=== PATIENT | female | born 1945 | race Asian ===

== ENCOUNTER → 2016-07-13 | Outpatient (CLI) | payer OTHER ==
[~2016-07-13] VITALS: Ht 157.5 cm; Wt 67.4 kg
[~2016-07-13] MED LIST: ALPRAZOLAM 0.50.5 M1 PO; AMITIZA 24 MCG24 MC1 PO; AMITIZA8 MCG PO; BACITRACIN 500U30 G1 TP; BISACODYL SUPP10 MG RE; CARBAMAZEPINE100 MG PO; CITRATE OF MAG300 ML PO; DOLOPHINE HCL10 MG PO; FENTANYL PA25 MCG/HR TRANSDERM; FENTANYL PA50 MCG/HR TRANSDERM; FOSAMAX 70 MG T70 MG PO; GABAPENTIN; HYDROCODON-ACE1 EAC1 PO; HYDROCODON-ACE1 EAC5 PO; HYDROCODONE-AP1 EA12 PO; HYDROCODONE-AP1 EAC6 PO; IMIPRAMINE HCL10 M2 PO; IMIPRAMINE HCL25 MG PO; KLOR-CON 1010 MEQ PO; LASIX 20 MG TAB20 MG PO; LEVAQUIN 500 M500 M1 PO; LIDODERM 5%1 PATC1 TRANSDERM; LYRICA 50 MG50 MG PO; LYRICA 75 MG CA75 MG PO; MELOXICAM7.5 MG PO; METHADONE HCL 110 M1 PO; METHADONE HCL 110 MG PO; MIRALAX17 GM PO; MIRALAX255 GM PO; NEURONTIN 300300 M1 PO; NORFLEX100 MG PO; NORTRIPTYLINE H25 M3 PO; NORTRIPTYLINE H50 M3 GT; NORTRIPTYLINE H75 M1 PO; OXCARBAZEPINE150 MG PO; OXYCODONE HCL10 M1 PO; OXYCODONE HCL15 MG PO; OXYCODONE HCL5 M1 PO; OXYCONTIN40 MG PO; PAMELOR25 MG PO; PROZAC10 M1 PO; PROZAC20 MG PO; ROXICODONE15 M1 PO; SENOKOT-S1 TA1 PO; VALIUM5 MG PO; XANAX 0.25 MG0.25 MG PO
--- NOTE | ~2016-07-13 | HPC ---
[facility] [address] [place] [address] PAIN MANAGEMENT CONSULTATION Name: FLACO HARRISON Room #: REG [facility] M.Fani.#: [id number] Admission: 07/13/16 Attend Phys: May Matt MD Discharge: Date of : 45 Report #: [id number] THIS REPORT FOR: //name// CC: KOKO Matt DATE OF SERVICE: 07/13/2016 CHIEF COMPLAINT: Here for medications for trigeminal neuralgia. HISTORY OF PRESENT ILLNESS: The patient is a 70-year-old female who has been followed in the pain clinic by Dr. Dejon Pierson. She suffers from chronic trigeminal neuralgia and anesthesia dolorosa. She continues to have pain and discomfort, which is quite problematic. At this juncture, her current regimen includes use of opioid medications. She indicates that the pain medications continue to be helpful. Her is present and states that they are helpful. She had an mobile manager present with whom we interacted with her. She states that things are going reasonably well. She feels that her medications are working reasonably well, enable her to engage in activities she would not be able to without their use. She does not feel they are causing any changes in her sensorium or difficulty in sleeping. She feels that overall these are helpful in increasing her ability to engage in daily activities. PHYSICAL EXAMINATION: GENERAL: The patient is alert. She appears to be reasonably comfortable during the interview. Blood pressure 174/83, pulse 60, respiratory rate 18, room air saturation 97%. Height 5 feet 2 inches, weight is 67 kilograms. BMI is 27. She has not fallen in the last 3 months. She does have a history of clinical depression. IMPRESSION: 1. Trigeminal neuralgia, mandibular branch 2. Anesthesia dolorosa, which has improved since her initial presentation. 3. Chronic depression. 4. Continued management of high risk medication including methadone 60 mg daily and . RECOMMENDATIONS: We explained to the patient that we can provide her 1 month of medications in the absence of Dr. Pierson. She will follow up in the near future with Dr. Pierson to be evaluated for continued treatment. A script for the patient has been given to her. She looks at it with her mobile manager and states that the dosaging amounts are correct. Her corroborates that. She will follow up in the near future. We would like to thank you for letting us participate in her care. We hope she continues to improve. [address] [address] PAIN MANAGEMENT CONSULTATION Name: FLACO HARRISON Room #: REG CLI [facility]#: [id number] Admission: 07/13/16 Attend Phys: May Matt MD Discharge: Date of : 45 Report #: [id number] We would like to thank you for letting us participate in her care. We hope she continues to improve. By: 1329 36 May Matt MD /rola
[2016-07-13 09:20] VITALS: BP 174/83
== END ==
LOC: PAIN 06:48
DX: G50.0 Trigeminal neuralgia (principal); F32.9 Major depressive disorder, single episode, unspecified

== ENCOUNTER → 2016-08-08 | Outpatient (CLI) | payer OTHER ==
[~2016-08-08] VITALS: Ht 157.5 cm; Wt 67.8 kg
--- NOTE | ~2016-08-08 | HPC ---
[facility] [place] [address] PAIN MANAGEMENT CONSULTATION Name: FLACO HARRISON Room #: REG CLGabby M.Fani.#: [id number] Admission: 08/08/16 Attend Phys: Dejon Pierson MD Discharge: Date of : 45 Report #: [id number] THIS REPORT FOR: //name// CC: Solo Pierson DATE OF SERVICE: 08/08/2016 DATE OF REGISTRATION: 08/08/2016. REASON FOR VISIT: Followup visit for management of trigeminal neuralgia and anesthesia dolorosa. SUBJECTIVE: The patient is here today with her . She has successfully made her trip to [place] and back. She is very grateful for the medication that she was able to take with her on her plane with our plans that we had established in April. She saw my partner, Dr. Bernard Matt at last visit. He provided her with 1 month of medication. She is here today for renewal of her medication. She reports that she is doing well. There are no new medical issues at hand. She is on time for medication. There have been no lost prescriptions. Pain relief is substantial. She does score her pain quite high, but her functional level is much improved. Pain is in the right lower jaw with allodynia; worsened by stress, cold weather and chewing. CURRENT MEDICATIONS: Methadone 10 mg 2 tablets t.i.d. for a total of 60 mg, hydrocodone one tablet t.i.d., and pregabalin 75 mg and she takes that p.r.n. ALLERGIES: TAPE, CONTRAST DYE. PHYSICAL EXAMINATION: GENERAL: Pleasant, alert and oriented, without signs of overmedication. We communicated through the soldering machine feeder. She was able to answer questions clearly and coherently. VITAL SIGNS: Her blood pressure 152/74, heart rate 68, respirations 16, BMI is 27. HEENT: Light allodynia is noted on the right side of the face and the mandibular distribution. IMPRESSION: 1. Trigeminal neuralgia/anesthesia dolorosa. 2. Management of high risk medication. PLAN: I have renewed her medications under terms of our agreement. She will [facility] [place] [address] PAIN MANAGEMENT CONSULTATION Name: FLACO HARRISON [facility] [id number] Admission: 08/08/16 Attend Phys: Dejon Pierson MD Discharge: Date of : 45 Report #: [id number] carefully monitor medication and watch over it. Her only side effect is constipation, and she was given a written prescription for the [id number] Senokot-S. She is currently using only MiraLax. Followup visit as needed. By: [id number] Dejon Pierson MD /nt
[2016-08-08 12:58] VITALS: BP 152/74
== END | disposition home or self-care (01) ==
LOC: PAIN 06:10
DX: G50.0 Trigeminal neuralgia (principal)

== ENCOUNTER → 2016-10-31 | Outpatient (CLI) | payer OTHER | LOC: PAIN 07:03 | DX: G50.0 Trigeminal neuralgia (principal) ==

== ENCOUNTER → 2017-02-20 | Outpatient (CLI) | payer OTHER ==
[~2017-02-20] VITALS: Ht 162.6 cm; Wt 68.3 kg
--- NOTE | ~2017-02-20 | HPC ---
[facility] [place] [address] PAIN MANAGEMENT CONSULTATION Name: FLACO HARRISON Room #: REG ERICKSON Alex.#: [id number] Admission: 02/20/17 Attend Phys: Dejon Pierson MD Discharge: Date of : 45 Report #: [id number] THIS REPORT FOR: //name// CC: Ole Pierson DATE OF SERVICE: 02/20/2017 Followup visit for management of chronic trigeminal neuralgia and anesthesia dolorosa. HISTORY OF PRESENTING ILLNESS: I am seeing the patient today in followup. She last saw Dr. Patrick in January, he provided her with one month of medication. She has been on a longstanding opioid agreement and at one point, we titrated her medication methadone up to 60 mg a day. This is a relatively high dose, but I will say that over the course of many years that I have seen her that she has continually done very well, her pain has been well controlled. She has had no side effects, she has always been on time for her visits and she has shown no misuse or abuse of her medicines. She was able to take a trip to [place] a year or so ago and visit family. Much of her pain is gone, but she still has a bit of light touch allodynia and she has trouble with cold weather. No side effects have been noted. She is quite stable. She used to complain of her pain at a very high level, but is less and her says she does not complain as much of the pain. He seems pleased with her current treatment. She was seen today with an healthcare interpreter. We spent about 20 minutes reviewing her medication and how she is doing. She seems to be doing very well from a psychosocial standpoint, she is a bit more outgoing. PHYSICAL EXAMINATION: She looks very good. She is pleasant and outgoing, smiling. We have a nice conversation back and forth through a Yakut healthcare interpreter. Blood pressure 148/81, heart rate 62, respirations 16. BMI is 25.8. PQRS REVIEW: She is not a smoker. She does not have significant osteoarthritis. She is not a fall risk. She is on an opioid agreement, which is discussed at length. She is on a relatively high dose, over 90 morphine milligram equivalents of methadone. She takes it in the prescribed fashion, she has had no red flag behaviors and no side effects as noted above. I have agreed to continue to provide these medications for her under terms of that agreement. She understands that there is an opioid crisis. Other considerations include hypertension and she is not on medication for that condition. IMPRESSION: [facility] [address] [place] [address] PAIN MANAGEMENT CONSULTATION Name: FLACO HARRISON [id number] Admission: 02/20/17 Attend Phys: Dejon Pierson MD Discharge: Date of : 45 Report #: [id number] 1. 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 2. Chronic depression. 3. Management of high risk medication. PLAN: I renewed all medications under terms of our agreement. Medications provided for her are hydrocodone and methadone. Dr. Patrick at her last visit provided her nortriptyline, which was not filled. Followup visit planned in 3 months. By: 1118 2037 Dejon Pierson MD /nt
[2017-02-20 12:02] VITALS: BP 148/81
== END ==
LOC: PAIN 07:18
DX: G89.29 Other chronic pain (principal); M79.2 Neuralgia and neuritis, unspecified; F32.9 Major depressive disorder, single episode, unspecified; Z79.899 Other long term (current) drug therapy

== ENCOUNTER → 2017-05-15 | Outpatient (CLI) | payer OTHER ==
[~2017-05-15] VITALS: Ht 157.5 cm; Wt 69.4 kg
--- NOTE | ~2017-05-15 | HPC ---
[facility] [address] [place] [address] PAIN MANAGEMENT CONSULTATION Name: FLACO HARRISON Room #: REG ERICKSON Alex.#: [id number] Admission: 05/15/17 Attend Phys: Dejon Pierson MD Discharge: Date of : 45 Report #: [id number] THIS REPORT FOR: //name// CC: Ole Pierson DATE OF SERVICE: 05/15/2017 Followup visit for trigeminal neuralgia. The patient returns to pain clinic today with her and we spoke with the aerospace products sales engineer over the phone. I am evaluating her for 60 mg of methadone a day, which she takes for her facial pain. She has done beautifully with that dose now over the course of many years, which is documented throughout her record at her 3-month interval followups. She has continued to show a very good control of pain and is much more stable now than when I first saw her. She scores her pain at 7 and 10, although I think it is somewhat lost in translation. Her reports that she is doing much better. Cold weather and cloudy weather continue to cause an increase in pain, which she describes as sharp and stabbing, but she is quite satisfied with the current regimen and sees no need to change it. She has had no side effects whatsoever. She has been careful and faithful with her medication, keeping close eye on it. I am a bit fearful providing her with the medication only because of the incredible interference that we are seeing in the provision of these useful medications due to concerns about opioid medications in society. Despite the fact that the vast majority of problems now appear to be related to heroin and synthetic fentanyl in a younger patient population, we are finding insurance companies are less likely to provide medications requiring preauthorization and basically interfering with what has been excellent pain management. She has not been hospitalized. She has not been in the Emergency Room to manage pain since beginning stabilizing the methadone. She has had no expensive procedures. Her depression and other mental issues associated with her pain have improved dramatically. It is my strong opinion that these medicines must be continued for her well-being. We reviewed QRS requirements through Medicare. She denies any history of osteoarthritis or rheumatoid arthritis. She is eating well and maintaining her weight at a BMI of 28.0. Vital signs are stable and she is under no treatment for hypertension. VITAL SIGNS: Blood pressure 143/85, heart rate is 75, respirations 16, O2 sat 97. Pain intensity listed at 10; with further questioning, she scores at 5-6, this seems even high given her descriptions and her affect today. She is on an [facility] [address] [place] [address] PAIN MANAGEMENT CONSULTATION Name: FLACO HARRISON Room #: REG Gabby Johnson.#: [id number] Admission: 05/15/17 Attend Phys: Dejon Pierson MD Discharge: Date of : 45 Report #: [id number] opioid agreement, which has been signed and resigned once again for a second time on 08/28/2015. We reviewed this with a Kazakh cutlet maker pork in the past. She does not smoke. She does not use alcohol. Her last buccal drug screen was performed some time ago. I may repeat another one as required by guidelines. IMPRESSION: 1. Trigeminal neuralgia with anesthesia dolorosa, which has been exceptionally well managed with methadone at 60 mg daily. 2. History of depression, much improved over the course of the last several years with improvement in pain control. PLAN: Continue current medications, methadone 20 mg t.i.d. and hydrocodone 10/325 for breakthrough pain, taken 3 times a day for the most part on schedule. She will also continue on nortriptyline, which she is prescribed out through the year. 25-minute consult with cutlet maker pork. <ELECTRONICALLY SIGNED> By: Dejon Pierson MD 06/12/17 1408 1620 29 Dejon Pierson MD /nt
[2017-05-15 12:49] VITALS: BP 143/85
== END ==
LOC: PAIN 07:19
DX: G50.0 Trigeminal neuralgia (principal); F32.9 Major depressive disorder, single episode, unspecified

== ENCOUNTER → 2017-06-15 | Outpatient (CLI) | payer OTHER ==
[~2017-06-15] VITALS: Ht 152.4 cm; Wt 69.9 kg
--- NOTE | ~2017-06-15 | HPC ---
[facility] [address] [place] [address] PAIN MANAGEMENT CONSULTATION Name: FLACO HARRISON Room #: REG CL M.Fani.#: [id number] Admission: 06/15/17 Attend Phys: Dejon Pierson MD Discharge: Date of : 45 Report #: [id number] THIS REPORT FOR: //name// CC: KOKO Pierson DATE OF SERVICE: 06/15/2017 Followup visit for trigeminal neuralgia, anesthesia dolorosa, management of methadone and hydrocodone treatment of chronic intractable pain. Mr. Harrison showed up at our office window earlier this week, reporting that his was once again returning to [place]. She will be gone through 08/29/2017. This presents some problem for monthly release of her medication. She is on methadone 60 mg daily and hydrocodone 3 tablets daily. This medication has been established and continued for over 5 years. It has done an excellent job in managing her incapacitating facial pain. In order for her to travel outside of the country, she will need to have enough medication to carry her through her visit. We provided her with medication in 2017, carefully notifying all involved parties including insurance company, pharmacy and entire pain management team in case questions developed during travel. Letters were written describing her travel, her daily use of medication and precise assessment of her medications. I have met with her again today to discuss this plan with her via an dump motorman, who was available by phone. The patient continues to function at a high level at home, although she does complain of a high pain score number. Her complaints of pain have dramatically diminished over the last several years. Her functional score is a 41/70. There is some challenge of course in communicating well with her even though her does speak [place], we generally also used brand leader. There have been no changes in her medication usage. She is cautious and her use of medication is monitored by her visits and also by drug screening, most recently performed within the last 6 months to a year. She has never shown any misuse or abuse tendencies nor signs of addiction. While the patient was in the office today, I personally discussed the case with her pharmacist. I provided a letter for them while in the office. I performed calculations to provide her with enough medication to get her through her visit with 4 additional days, so that she can get back to see us, 2 days after return to the [facility]. We provided copies of her travel as well to the pharmacist and kept a copy for our office. She will be leaving on 06/26/2017 and will be returning to [place] on 08/29/2017. On physical exam today, no significant changes noted. She is pleasant, alert [address] [address] PAIN MANAGEMENT CONSULTATION Name: FLACO HARRISON Room #: REG ERICKSON Perry#: [id number] Admission: 06/15/17 Attend Phys: Dejon Pierson MD Discharge: Date of : 45 Report #: [id number] and oriented. She has a bit anxious, but in a positive way anticipating her visit to visit family. She scores her pain intensity once again as a 7-8. This is with medication. There is light touch allodynia noted, although not too severe along the V2 distribution of the right mandible. There is no facial asymmetry noted. Mucous membranes are moist. IMPRESSION: 1. Trigeminal neuralgia, anesthesia dolorosa. 2. Management of high risk medication. With communication between all parties, prescriptions were provided to allow her 60 mg of methadone per day and hydrocodone 10/325 three tablets per day through 08/29/2017. We will see her back in the Pain Clinic on 08/31/2017. Appointment has been made. By: 1220 1946 Dejon Pierson MD /nt
[2017-06-15 09:48] VITALS: BP 144/90
== END ==
LOC: PAIN 07:17
DX: G50.0 Trigeminal neuralgia (principal); Z79.899 Other long term (current) drug therapy

== ENCOUNTER → 2017-08-30 | Outpatient (CLI) | payer OTHER ==
[~2017-08-30] VITALS: Ht 152.4 cm; Wt 65.9 kg
--- NOTE | ~2017-08-30 | HPC ---
[facility] [place] [address] PAIN MANAGEMENT CONSULTATION Name: FLACO HARRISON Room #: REG ERICKSON Johnson.#: [id number] Admission: 08/30/17 Attend Phys: Dejon Pierson MD Discharge: Date of : 45 Report #: [id number] THIS REPORT FOR: //name// CC: Ole Pierson DATE OF SERVICE: 08/30/2017 Followup visit for trigeminal neuralgia. The patient ran out of medication while she was in [place] and had to go to the Emergency Room. We had carefully calculated enough medication for her to be able to make that completely through her trip. She is in withdrawal at this time. I arranged to see her urgently in my clinic on her return to the [facility]. She is here today with her . She has responded very well to methadone at 60 mg a day controlling her neuropathic pain quite effectively. She also has hydrocodone 10/325, which she can take for breakthrough pain. Those medications are completely out. She is in withdrawal with severe recurrence of her facial pain at this time. PHYSICAL EXAMINATION: GENERAL: She is crying in bed, on her hands and knees. Her pain is 10/10. She has some swelling noted on the right side of her face and allodynia is present. The right eyelid is closed tightly. VITAL SIGNS: Her blood pressure is 136/93, heart rate 79, respirations 16. BMI 28.4. She has some evidence of piloerection and increased bowel sounds consistent with opioid withdrawal. IMPRESSION: 1. Severe trigeminal neuralgia, which has been treated beautifully with methadone, hydrocodone over the course of roughly 5-10 years. 2. Opioid withdrawal due to miscalculation or perhaps slight overtaking of medication. She is just a couple of days off. PLAN: I renewed her medication for her. She has only been off for a day or two. She can renew her previous dose. Phone call will be placed to the home to check on the patient in 24 hours. She was given a prescription for methadone 10 mg 180, 2 tablets t.i.d. for now 4 and 8 weeks. Hydrocodone 10/325 mg 90 one tablet 3 times daily now and for 4 weeks. NOTE: A phone call was placed on the date of this dictation, 08/31/2017. I [address] [address] PAIN MANAGEMENT CONSULTATION Name: FLACO HARRISON Room #: REG Gabby Perry#: [id number] Admission: 08/30/17 Attend Phys: Dejon Pierson MD Discharge: Date of : 45 Report #: [id number] spoke with the patient. With resumption of medication, the patient was doing much better. Her pain was under control and symptoms of withdrawal had abated. <ELECTRONICALLY SIGNED> By: Dejon Pierson MD 09/04/17 1230 1608 [id number] Dejon Pierson MD /nt
[2017-08-30 14:19] VITALS: BP 136/93
== END ==
LOC: PAIN 07:09
DX: G50.0 Trigeminal neuralgia (principal); Z79.891 Long term (current) use of opiate analgesic

== ENCOUNTER → 2017-10-26 | Outpatient (CLI) | payer OTHER ==
--- NOTE | ~2017-10-26 | HPC ---
[facility] [place] [address] PAIN MANAGEMENT CONSULTATION Name: FLACO HARRISON Room #: REG ERICKSON Johnson.#: [id number] Admission: 10/26/17 Attend Phys: Dejon Pierson MD Discharge: Date of : 45 Report #: [id number] THIS REPORT FOR: //name// CC: Solo Pierson DATE OF SERVICE: 10/26/2017 Followup visit for trigeminal neuralgia. The patient presents back to the pain clinic today, 1 month after the passing of her . I saw her in my clinic and offered her condolences and comfort shortly after he . She is here today with a family friend, who is fluent in both Cambodian and Kiswahili and she served as our entry level machine operator. The patient intends to stay in the [place] in her house. She lives close to [facility]. She has some social contacts, which will help be supportive for her. She has recently been back to [place] and has decided that she does not intend to return. She is doing reasonably well on her current medication regimen, which includes 60 mg a day of methadone and hydrocodone 10/325 three times a day for breakthrough pain. I have now managed these medicines for the patient since 2012. There has been significant and dramatic improvement in her pain control, her ability to function throughout the day and she has no significant side effects. She has always been on time with her medication and carefully monitors it. Hopefully, this will continue in the absence of her 's oversight. We spent some time today discussing the ongoing management, clarifying for her friend how we intend to continue these medications at 3-month intervals. Prescriptions were filled through our pharmacy at the hospital and we will keep a close eye on medications. I have checked her PDMP and all medications are in line with what we anticipate. She has no misuse or abuse, no evidence of opioid use disorder. She is truly quite grateful for the pain relief that the medications provide. PQRS AND PHYSICAL EXAMINATION: VITAL SIGNS: She is pleasant, alert and oriented with a BMI of 28. Her blood pressure is 163/86, heart rate is 84, O2 sat is 95%. Pain intensity is an 8. MUSCULOSKELETAL: She has no allodynia or discomfort. She has some pain with deeper palpation along the right side of her face. Pain currently is fairly well controlled along the mandible. She is not a fall risk. She is on no blood thinners. She is on an opioid agreement and her opioid risk tool assessment shows her at very low [place] [address] PAIN MANAGEMENT CONSULTATION Name: FLACO HARRISON Room #: REG [facility] Jerry.Fani.#: [id number] Admission: 10/26/17 Attend Phys: Dejon Pierson MD Discharge: Date of : 45 Report #: [id number] PLAN: Prescriptions for our methadone 10 mg 2 tablets 3 times daily for a total of 60 mg were provided along with hydrocodone 10/325 one tablet 3 times a day for breakthrough pain, which she takes fairly regularly on her near schedule to maintain pain control throughout the day. I think things are working here. I do not intend to adjust her medication. We will see her back in the pain clinic in 3 months. By: 1226 1437 Dejon Pierson MD /nt
[2017-10-26 09:22] VITALS: BP 163/86
== END ==
LOC: PAIN 07:24
DX: G50.0 Trigeminal neuralgia (principal); Z79.899 Other long term (current) drug therapy

== ENCOUNTER → 2018-01-23 | Outpatient (CLI) | payer OTHER ==
[~2018-01-23] VITALS: Ht 152.4 cm; Wt 65.7 kg
--- NOTE | ~2018-01-23 | HPC ---
[facility] [address] [place] [address] PAIN MANAGEMENT CONSULTATION Name: FLACO HARRISON Room #: REG [facility] M..#: [id number] Admission: 01/23/18 Attend Phys: Vivi Givens Discharge: Date of : 45 Report #: [id number] THIS REPORT FOR: //name// CC: Vivi Pierson MD DATE OF SERVICE: 01/23/2018 Followup visit today for her trigeminal neuralgia. The patient presents to the pain clinic today for a refill of her methadone that she takes for her trigeminal neuralgia. She is here with a family friend who does speak Upper Sorbian and Danish, but we are using the phone exploration engineer system and the friend is interpreting a little bit. The patient tells me that her pain is an 8/10 in her jaw on the right side, worse with stress. Medications are very helpful. The patient would like a refill of this medication today. ALLERGIES: TO TAPE AND CONTRAST DYE. CURRENT LIST OF MEDICATIONS: She takes methadone 10 mg tablets 2 tablets 3 times a day, hydrocodone 10/325 up to 3 tablets a day. Those are her only medications. PQRS: 1. The patient has no history of osteoarthritis or rheumatoid arthritis. 2. Height is 5 feet 0 inches, weight is 144 pounds. BMI is 28.3. Vital signs: Blood pressure 154/91, pulse is 71, respirations 16, oxygen sat is 98. Pain intensity is 8/10. 3. Fall risk. She denies dizziness. Does not need help walking or standing and has not fallen in the last 3 months. She is not on a blood thinner or antihypertensive. She has opioid sign contract on the chart because she has been on opiate therapy greater than 6 weeks. Her risk assessment tool is low and her functional assessment is 41/70. She does not smoke, does not drink alcohol and has never used prescription drugs. We did check a [place] prescription monitoring and she is feeling appropriately from Dr. Dejon Pierson and she is on time for her medication refills today. The patient tells me that she does safeguard her medications. PHYSICAL EXAMINATION: This is a pleasant female. She is alert and orientated. Her pain score is 8/10. She has no allodynia or discomfort with talking, but she does have significant pain on the right side of her face when she is eating or cold weather. The patient is very talkative today and able to move her mouth without difficulty. Her extraocular eye muscles are intact. Mucous membranes are moist. Hearing is adequate. She has no JVD or adenopathy. No decreased range of motion. [address] [address] PAIN MANAGEMENT CONSULTATION Name: FLACO HARRISON Room #: REG [facility].#: [id number] Admission: 01/23/18 Attend Phys: Vivi Givens Discharge: Date of : 45 Report #: [id number] MUSCULOSKELETAL: All of her muscle groups appear to be 5/5 and equal strength in upper and lower extremities. The patient walks without difficulty. IMPRESSION: 1. Trigeminal neuralgia. 2. Complex opioid medical management. The patient taking high dose methadone. We reviewed the fact that opiate medications are being used to provide analgesia adequate to support activities of daily living, not attempting to achieve a specific pain score on the 0-10 Visual Analog Scale. The current opiate medications are providing sufficient analgesia to allow the patient to participate in activities of daily living. The patient is not exhibiting any aberrant behavior suggestive of drug diversion. The patient is not having any adverse reactions to medications. The patient is not suffering from daytime somnolence or mental acuity changes. The patient is managing opiate-induced constipation with appropriate raot-bln-dbxbvgr agents and dietary considerations. The patient was counseled on concern for caution with operating a motor vehicle while using opiate medications. A physical exam was performed and the patient's functional status was evaluated. All patients with back pain were advised against the bed rest greater than 4 days and were advised to return to normal activities. Pain score assessment was noted and the treatment plan was reviewed with the patient. All current medications, both prescribed and OTC were reviewed and reconciled on the electronic medical record. Tobacco screening was accomplished and smoking cessation was advised when indicated. BMI was noted and diet/exercise modification was recommended for all patients following outside normal parameters. I reviewed with the patient today their responsibilities to safeguard prescription medications, reviewed their responsibility to utilize medications only as prescribed by the physician. They are to seek and receive pain medications only from 1 physician group ( [facility]). They are to use 1 pharmacy and keep the clinic informed if they change pharmacies. Their responsibilities include making followup visits in a timely fashion and to avoid abrupt discontinuation of medication usage. Their responsibilities further include bringing their medications (bottles from the pharmacy with residual pills) to the visit for possible confirmation of pill counts and the patient understands it is their responsibility to submit to random drug screens to ensure both that the medications prescribed are present, and that no other controlled substances are present. All prescriptions provided today were generated electronically. PLAN: The patient is here for a refill of her opioid medications. We did talk about the CDC guidelines today in quite depth. I did bring in the CDC guideline pamphlet to show her where she falls on 1 chart about the methadone taking [address] [address] PAIN MANAGEMENT CONSULTATION Name: FLACO HARRISON Room #: REG [facility]#: [id number] Admission: 01/23/18 Attend Phys: Vivi Givens Discharge: Date of : 45 Report #: [id number] x 10 per the calculation is 600. Her hydrocodone is 30 since she takes 10 mg tablets 3 times a day. On 1 calculation that makes 630 MME; another calculation tool that we have been given, the patient falls in the lower guidelines of 3 of 210 MME. Thus, she is over the 90 MME that the CDC is recommending. It was also decided in the practice that these people would be seen on a monthly basis if they were higher than 90MME. The patient is agreeable and understands that she will probably need to decrease her methadone. She is agreeable with that for trying. She does not want to take her hydrocodone away. I assured her that at this point, we were keeping her as she is, but she was going to try and decrease by half a pill over this month next month of one of her doses and see if she is able to tolerate that. The patient then says maybe in the future, she can decrease another half a pill on another dose working towards decreasing slightly. I told her that this would be a good plan that we will not take her off her methadone because it significantly helps her trigeminal neuralgia that maybe would be able to decrease at least maybe to 3 full pills a day, which would be half of what she is on. We will see how her pain level continues to be during this slow weaning process. The patient given a prescription today for methadone 10 mg 2 tablets 3 times a day #180 and script hydrocodone 10/325 three times a day, #90. The patient is agreeable with this plan of care. This patient seen in collaboration with Dr. Tony Patrick and will be seen in 1-month followup. <ELECTRONICALLY SIGNED> By: Vivi Givens 01/23/18 1516 [id number] Vivi Givens /nt
[2018-01-23 09:49] VITALS: BP 154/91
== END ==
LOC: PAIN 08:45
DX: G50.0 Trigeminal neuralgia (principal); F11.90 Opioid use, unspecified, uncomplicated

== ENCOUNTER → 2018-02-19 | Outpatient (CLI) | payer OTHER ==
[~2018-02-19] VITALS: Ht 152.4 cm; Wt 66.1 kg
--- NOTE | ~2018-02-19 | HPC ---
[facility] [address] [place] [address] PAIN MANAGEMENT CONSULTATION Name: FLACO HARRISON Room #: REG [facility] M..#: [id number] Admission: 02/19/18 Attend Phys: Vivi Givens Discharge: Date of : 45 Report #: [id number] THIS REPORT FOR: //name// CC: Vivi Thompsonkassidy Mohamud DATE OF SERVICE: 02/19/2018 CHIEF COMPLAINT: Trigeminal neuralgia. HISTORY OF PRESENT ILLNESS: This is a followup visit today for her trigeminal neuralgia affecting the patient's right side of her face. The patient tells me that her pain score today is 8/10, mostly in her lower jaw. She tells me that it is a sharp, stabbing pain, worse with cold weather, stress. The medications are very helpful. We had asked her at her last appointment to try to decrease her methadone use by 1 pill a day and seeing how her pain was for that month. The patient tells me today through the tilesetter phone that she attempted to do that, but her pain was significantly worse. She tells us that her quality of life had decreased when she was only taking 5 pills a day. When she takes her 6 pills a day, she is able to function and do things around her house, able to go out. She has noticed a big difference in her jaw pain when it was being decreased. The patient feels like she is more beneficial taking her 6 tablets a day, which she had been stable on for quite a while. Therefore, she would like a refill today of her methadone and her hydrocodone pills. The patient denies constipation. She does take MiraLax as needed and does not have any daytime sleepiness. ALLERGIES: TAPE AND CONTRAST DYE. LIST OF CURRENT MEDICATIONS: Methadone 10 mg 2 tablets 3 times a day and hydrocodone 10/325 up to 3 tablets a day. PQRS: The patient has no history of osteoarthritis or rheumatoid arthritis. Height is 5 feet, weight is 145, BMI is 28. Vital signs: Blood pressure 156/89, pulse is 70, respirations 18, oxygen sat is 97%. Pain score is 8/10. Fall risk, she denies dizziness. Does not need help walking or standing and has not fallen in the last 3 months. She is not on any blood thinners or antihypertensive medicines. She has an opioid signed contract on the chart due to being on opioids greater than 6 weeks. Her risk assessment tool is low and her functional assessment is 41/70. Her recreational drug use, she denies, is not a smoker and does not drink alcohol. PHYSICAL EXAMINATION: GENERAL: This is a well-developed, well-nourished, pleasant female who appears her stated age. She is alert and orientated x 3. Her affect is appropriate. HEENT: Normocephalic. Extraocular eye muscles are intact. Mucous membranes [address] [address] PAIN MANAGEMENT CONSULTATION Name: FLACO HARRISON [facility] [id number] Admission: 02/19/18 Attend Phys: Vivi Givens Discharge: Date of : 45 Report #: [id number] are moist. Complains of pain on the right side of her face, especially with touch and movement of her jaw. She is moving without difficulty today. NECK: No JVD or adenopathy. Good range of motion. MUSCULOSKELETAL: All of her muscle groups appear judged in strength to be equal, about 5/5 in all of her major muscle groups. The patient walks without difficulty. IMPRESSION: 1. Trigeminal neuralgia. 2. Complex opioid medical management. We will maintain on high dose methadone under terms of opioid contract. We reviewed the fact that opiate medications are being used to provide analgesia adequate to support activities of daily living, not attempting to achieve a specific pain score on the 0-10 Visual Analog Scale. The current opiate medications are providing sufficient analgesia to allow the patient to participate in activities of daily living. The patient is not exhibiting any aberrant behavior suggestive of drug diversion. The patient is not having any adverse reactions to medications. The patient is not suffering from daytime somnolence or mental acuity changes. The patient is managing opiate-induced constipation with appropriate ulpk-tnu-vmcjbjc agents and dietary considerations. The patient was counseled on concern for caution with operating a motor vehicle while using opiate medications. A physical exam was performed and the patient's functional status was evaluated. All patients with back pain were advised against the bed rest greater than 4 days and were advised to return to normal activities. Pain score assessment was noted and the treatment plan was reviewed with the patient. All current medications, both prescribed and OTC were reviewed and reconciled on the electronic medical record. Tobacco screening was accomplished and smoking cessation was advised when indicated. BMI was noted and diet/exercise modification was recommended for all patients following outside normal parameters. I reviewed with the patient today their responsibilities to safeguard prescription medications, reviewed their responsibility to utilize medications only as prescribed by the physician. They are to seek and receive pain medications only from 1 physician group ([facility]). They are to use 1 pharmacy and keep the clinic informed if they change pharmacies. Their responsibilities include making followup visits in a timely fashion and to avoid abrupt discontinuation of medication usage. Their responsibilities further include bringing their medications (bottles from the pharmacy with residual pills) to the visit for possible confirmation of pill counts and the patient understands it is their responsibility to submit to random drug screens to ensure both that the medications prescribed are present, and that no other controlled substances are present. All prescriptions provided today were [facility] [address] [place] [address] PAIN MANAGEMENT CONSULTATION Name: FLACO HARRISON Room #: REG [facility]..#: [id number] Admission: 02/19/18 Attend Phys: Vivi Givens Discharge: Date of : 45 Report #: [id number] generated electronically. PLAN: 1. We discussed treatment options with this patient today. We discussed the CDC guidelines in depth again as well as last visit. The patient did try to decrease her methadone by 1 pill a day, find that was not helpful, her pain had increased and her quality of life and function had decreased and the patient did return to her 2 tablets 3 times a day. The patient tells me that her pain is an 8/10 with her current methadone and hydrocodone regime. The patient does tell me that she understands the government guidelines, but hopes that we will be able to continue on her current dosage, so that she is able to function as well as she can. I agree that the patient did do well on her current regime. We will rewrite methadone 10 mg, quantity of 180 for 1 month and hydrocodone 10/325, #90. 2. The patient will be seen in 1 month time period for a followup visit due to her high dose of opioids. We will follow her closely and monitor her progress. Appointment made with Dr. Pierson for 1 month time frame. The patient will go to [place] for 3 weeks after she has seen a doctor and then return in time for her next monthly appointment: 3. The patient is seen in collaboration today with Dr. Dejon Pierson. <ELECTRONICALLY SIGNED> By: Vivi Givens 02/20/18 0716 [id number] Vivi Givens /nt
[2018-02-19 14:06] VITALS: BP 156/89
== END ==
LOC: PAIN 02:04
DX: G50.0 Trigeminal neuralgia (principal); Z79.891 Long term (current) use of opiate analgesic; Z79.899 Other long term (current) drug therapy

== ENCOUNTER → 2018-03-19 | Outpatient (CLI) | payer OTHER ==
[~2018-03-19] VITALS: Ht 152.4 cm; Wt 65.1 kg
[2018-03-19 14:30] VITALS: BP 160/83
--- NOTE | 2018-03-19 14:46 | NUR ---
Pain Clinic Assessment: 1. History of Osteoarthritis: Not Applicable History of Rheumatoid Arthritis: Not Applicable 2. Height: 5 ft. 0 in. 152.4 cm. Weight: 143.6 lb. oz. 65.136 kg. Patient's BMI: 28.0 3. Vital Signs: BP: 160/83 Pulse: 74 Resp: 14 Temp: 02 Sat: 96 ECG Mon: 4. Pain Intensity: 6 5. Fall Risk: Dizziness: N Needs help standing or walking: N Fallen in the last 3 months: N Fall risk comments: 6. Patient on Blood Thinner: None 7. History of Hypertension: N 8. Opioid Therapy greater than 6 weeks: Y Opiate Contract Signed: 04/07/16 9. Risk Assessment Tool Provided: LOW RISK 0/0 10. Functional Assessment Tool: 11. Recreational Drug Use: Never Drug Type: Tobacco Use: Never Smoker Tobacco Type: Amount or Packs/day: How Many Years: Alcohol Use: No Frequency: Quant:
--- NOTE | 2018-03-20 08:10 | HPC ---
[facility] [address] [address] PAIN MANAGEMENT CONSULTATION Name: FLACO HARRISON Room #: REG [facility] M..#: [id number] Admission: 03/19/18 Attend Phys: Vivi Givens Discharge: Date of : 45 Report #: [id number] THIS REPORT FOR: //name// CC: Vivi Mallory DATE OF SERVICE: 03/19/2018 CHIEF COMPLAINT: Trigeminal neuralgia. HISTORY OF PRESENT ILLNESS: This is a followup visit today for this 72-year-old female that presents with trigeminal neuralgia affecting right side of her face. She tells me that her pain score today through the aid of an repeater chief of 6/10, worse with eating and talking. She said her pain level is usually pretty constant. The medications are very helpful. She tells me that she is leaving to go to [place] tomorrow. She will fill her medications today and then have an appointment when she comes back. She complains of some constipation, but is eating fruits and vegetables to help with that. Denies any daytime sleepiness. She would like a refill today prior to her trip. ALLERGIES: TAPE AND CONTRAST DYE. CURRENTLY LIST OF MEDICATIONS: Methadone 10 mg tablets 2 tablets 3 times a day and hydrocodone 10/325 three tablets a day. PQRS: 1. The patient denies history of osteoarthritis or rheumatoid arthritis. 2. She is 5 feet tall, 143. BMI is 28. 3. Vital signs: Blood pressure 160/83, pulse is 74, respirations 14, oxygen sat 96. 4. Pain score is 6/10. 5. Fall risk: She denies dizziness, does not need any help walking or standing, has not fallen in the last 3 months. 6. She denies any blood thinners, does not take any antihypertensive medicines. 7. Opiate therapy is greater than 6 weeks, therefore and opioid signed contract is on the chart. 8. Her risk assessment tool is low. Her functional assessment is 41/70. 9. Recreational drug use she denies, is a former smoker and does not drink alcohol. Did check the prescription monitoring system. The patient has a recent drug screen on the chart and is filling appropriately for her medications at the mall pharmacy downstairs. PHYSICAL EXAMINATION: GENERAL: This is a well-developed, well-nourished, pleasant female who appears her stated age. She is alert and orientated x 3. Her affect is appropriate, almost jovial today. [facility] [address] [place] [address] PAIN MANAGEMENT CONSULTATION Name: FLACO HARRISON [id number] Admission: 03/19/18 Attend Phys: Vivi Givens Discharge: Date of : 45 Report #: [id number] HEENT: Normocephalic. Extraocular eye muscles are intact. Mucous membranes are moist. Complains of pain in the right side of her face, especially with touch and movement of her jaw. She is smiling though at multiple times today, does not seem to cause increase in pain. NECK: No JVD or adenopathy. Good range of motion. MUSCULOSKELETAL: All of her muscle groups appeared to be equal in strength bilaterally. She walks without any difficulty. ASSESSMENT: 1. Trigeminal neuralgia. 2. Complex opioid medication management. She is on high risk medicines of methadone under terms of written opioid agreement. We reviewed the fact that opiate medications are being used to provide analgesia adequate to support activities of daily living, not attempting to achieve a specific pain score on the 0-10 Visual Analog Scale. The current opiate medications are providing sufficient analgesia to allow the patient to participate in activities of daily living. The patient is not exhibiting any aberrant behavior suggestive of drug diversion. The patient is not having any adverse reactions to medications. The patient is not suffering from daytime somnolence or mental acuity changes. The patient is managing opiate-induced constipation with appropriate etpo-qcr-lvwqwxh agents and dietary considerations. The patient was counseled on concern for caution with operating a motor vehicle while using opiate medications. A physical exam was performed and the patient's functional status was evaluated. All patients with back pain were advised against the bed rest greater than 4 days and were advised to return to normal activities. Pain score assessment was noted and the treatment plan was reviewed with the patient. All current medications, both prescribed and OTC were reviewed and reconciled on the electronic medical record. Tobacco screening was accomplished and smoking cessation was advised when indicated. BMI was noted and diet/exercise modification was recommended for all patients following outside normal parameters. I reviewed with the patient today their responsibilities to safeguard prescription medications, reviewed their responsibility to utilize medications only as prescribed by the physician. They are to seek and receive pain medications only from 1 physician group ( [facility]). They are to use 1 pharmacy and keep the clinic informed if they change pharmacies. Their responsibilities include making followup visits in a timely fashion and to avoid abrupt discontinuation of medication usage. Their responsibilities further include bringing their medications (bottles from the pharmacy with residual pills) to the visit for possible confirmation of pill counts and the patient understands it is their responsibility to submit to random drug screens to ensure both that the medications prescribed are present, and that no other [address] [address] PAIN MANAGEMENT CONSULTATION Name: FLACO HARRISON Room #: REG CL[facility]#: [id number] Admission: 03/19/18 Attend Phys: Vivi Givens Discharge: Date of : 45 Report #: [id number] controlled substances are present. All prescriptions provided today were generated electronically. PLAN: 1. We discussed treatment options with this patient today. She is on monthly visits here in the clinic due to her high dose per MME per the CDC guidelines. Since methadone has a high conversion factor and she takes large amount, her MME is 210. So again, the patient is seen on a monthly basis. She is being filled with her medications today prior to her trip to [facility] tomorrow. 2. We instructed the patient to safeguard her medications while she is gone, keep them with her at all times. We did use the repeater chief phone for this visit today. 3. The patient made an appointment for 1 month after she returns from [facility] for her next refill. The patient is seen today in collaboration with Dr. Dejon Pierson. <ELECTRONICALLY SIGNED> By: Vivi Givens 03/20/18 0810 1527 Vivi Givens /rola
== END ==
LOC: PAIN 07:20
DX: G50.0 Trigeminal neuralgia (principal); Z79.899 Other long term (current) drug therapy; Z79.891 Long term (current) use of opiate analgesic

== ENCOUNTER → 2018-04-17 | Outpatient (CLI) | payer OTHER ==
[~2018-04-17] VITALS: Ht 152.4 cm; Wt 66.5 kg
[2018-04-17 10:32] VITALS: BP 165/83
--- NOTE | 2018-04-18 07:38 | HPC ---
[facility] [address] [place] [address] PAIN MANAGEMENT CONSULTATION Name: FLACO HARRISON Room #: REG [facility] M.Fani.#: [id number] Admission: 04/17/18 Attend Phys: Vivi Givens Discharge: Date of : 45 Report #: [id number] THIS REPORT FOR: //name// CC: Vivi Thompsonkassidy Mohamud DATE OF SERVICE: 04/17/2018 CHIEF COMPLAINT: Trigeminal neuralgia. HISTORY OF PRESENT ILLNESS: This is a 72-year-old female that returns to the pain clinic today for her right gum pain related to her trigeminal neuralgia. She tells me that she is doing bad today, the cold is making her pain worse. She recently returned from [place] last night in a long flight, and she is tired, so her pain is a 9/10 today along the right lower jaw and her gumline. She tells me that the medications are normally helpful, but not doing so currently. She has a sharp stabbing pain. The patient denies any constipation today. She tells me she uses lots of fruit and occasional medications, but tries to decrease her medicine use for her constipation. She needs a refill of her current medications today, and we are using the aitchbone breaker phone to glean this information from her today. ALLERGIES: TAPE AND CONTRAST DYE. CURRENT LIST OF MEDICATIONS: Methadone 10 mg 2 tablets 3 times a day, hydrocodone 10/325 t.i.d. PQRS: 1. The patient denies any history of osteoarthritis or rheumatoid arthritis. 2. Height is 5 feet 4 inches, weight is 153, BMI is 26. 3. Vital signs: Blood pressure 145/70, pulse is 66, respirations 16, oxygen sat 100. 4. Pain score is 2/10. 5. Fall risk. She denies any dizziness. Does not need help walking or standing. Has not fallen in the last 3 months. 6. The patient denies any blood thinners or does not take any hypertension medicines. 7. Opioid therapy is greater than 6 weeks, therefore, an opioid signed contract is on the chart. 8. Risk assessment tool is low. Her functional assessment is . 9. Recreational drug use. She denies any recreational drug use or tobacco use and occasionally drinks alcohol. We did check the prescription monitoring system. The patient is filling appropriately from Dr. Dejon Pierson in a timely manner. There is a drug screen on the chart. We will recheck that at the next visit also, to have [place] [address] PAIN MANAGEMENT CONSULTATION Name: FLACO HARRISON Room #: REG CLI Vicky#: [id number] Admission: 04/17/18 Attend Phys: Vivi Givens Discharge: Date of : 45 Report #: [id number] PHYSICAL EXAMINATION: GENERAL: This is a well-developed, well-nourished, pleasant female who appears her stated age. She is alert and orientated. Her affect is appropriate. HEENT: Normocephalic. Extraocular eye muscles are intact. Mucous membranes are moist. Complains of right gum pain today. NECK: No JVD or adenopathy. MUSCULOSKELETAL: All major muscle groups appear to be equal in strength bilaterally. She walks with a normal gait. ASSESSMENT: 1. Trigeminal neuralgia. 2. Complex opioid medication management under written opioid agreement, taking high risk medication of methadone. We reviewed the fact that opiate medications are being used to provide analgesia adequate to support activities of daily living, not attempting to achieve a specific pain score on the 0-10 Visual Analog Scale. The current opiate medications are providing sufficient analgesia to allow the patient to participate in activities of daily living. The patient is not exhibiting any aberrant behavior suggestive of drug diversion. The patient is not having any adverse reactions to medications. The patient is not suffering from daytime somnolence or mental acuity changes. The patient is managing opiate-induced constipation with appropriate shtb-cid-hrgzvpv agents and dietary considerations. The patient was counseled on concern for caution with operating a motor vehicle while using opiate medications. A physical exam was performed and the patient's functional status was evaluated. All patients with back pain were advised against the bed rest greater than 4 days and were advised to return to normal activities. Pain score assessment was noted and the treatment plan was reviewed with the patient. All current medications, both prescribed and OTC were reviewed and reconciled on the electronic medical record. Tobacco screening was accomplished and smoking cessation was advised when indicated. BMI was noted and diet/exercise modification was recommended for all patients following outside normal parameters. I reviewed with the patient today their responsibilities to safeguard prescription medications, reviewed their responsibility to utilize medications only as prescribed by the physician. They are to seek and receive pain medications only from 1 physician group ( [facility]). They are to use 1 pharmacy and keep the clinic informed if they change pharmacies. Their responsibilities include making followup visits in a timely fashion and to avoid abrupt discontinuation of medication usage. Their responsibilities further include bringing their medications (bottles from the pharmacy with residual pills) to the visit for possible confirmation of pill counts and the patient understands it is their responsibility to submit to random drug screens to [address] [address] PAIN MANAGEMENT CONSULTATION Name: FLACO HARRISON Room #: REG [facility] Perry#: [id number] Admission: 04/17/18 Attend Phys: Vivi Givens Discharge: Date of : 45 Report #: [id number] ensure both that the medications prescribed are present, and that no other controlled substances are present. All prescriptions provided today were generated electronically. PLAN: 1. We discussed treatment options with the patient today. We will refill her methadone, which she is seen on a monthly basis due to her high conversion from methadone to morphine per the CDC guidelines and her MME. The patient's current conversion is 600 on one conversion or 224 on another conversion of methadone 3-1 with morphine. 2. The patient will be seen in 1 month, appointment made to see Dr. Dejon Pierson at that appointment: 3. The patient is seen in collaboration today with Dr. Tony Patrick. <ELECTRONICALLY SIGNED> By: Vivi Givens 04/18/18 0738 [id number] Vivi Givens /nt
== END ==
LOC: PAIN 04-16 07:15
DX: G50.0 Trigeminal neuralgia (principal); G89.29 Other chronic pain; Z79.891 Long term (current) use of opiate analgesic; Z79.899 Other long term (current) drug therapy

== ENCOUNTER → 2018-05-14 | Outpatient (CLI) | payer OTHER ==
[~2018-05-14] VITALS: Ht 152.4 cm; Wt 67.7 kg
--- NOTE | ~2018-05-14 | HPC ---
[facility] [address] [place] [address] PAIN MANAGEMENT CONSULTATION Name: FLACO HARRISON Room #: REG [facility] Edwards.Fani.#: [id number] Admission: 05/14/18 ������������������ Attend Phys: Dejon Pierson MD Discharge: ������������������ Date of : 45 Report #: [id number] THIS REPORT FOR: //name// CC: Solo Pierson DATE OF SERVICE: 05/14/2018 Followup visit for trigeminal neuralgia. The patient returns to the pain clinic today and is in tears. This is the first time I have seen her upset since her about 6 months ago. She had some support from the Vietnamese community shortly after his , but apparently that has sort of fallen away and she is very isolated at this point in time. She does not speak Frisian and does not have family in the community. She does not attend the Vietnamese muslim, so she has no one to converse with. She has no pets at home. I think that her crying today was based mostly on her loneliness. She has been going back and forth to [place] and I asked if she had thought about moving back to [place]. She reports that she cannot go to [place] because her pain is too severe if she is not managed carefully with the medications that we provide. She really is tied to the [place] and the methadone that has become such an important part of managing her trigeminal neuralgia. She reports that without the medication, the pain is simply unbearable. I have talked about possibly tapering her medication, but she was reluctant. In the absence of tapering medication, we need to find a way to make her more happy in the [place]. We talked a lot about getting involved with the [place] muslim. Churches tend to be places where people are open to people who are struggling and there is a lot of compassion there. She could also find someone there perhaps that she could communicate with. I think that she would do well having something to take care of and that she would appreciate the companionship. She will take that into consideration. On PQRS exam today, she denies any osteoarthritis. Her gait is stable and she is not a fall risk. She is on no blood thinner nor does she take medication for hypertension. She is on methadone therapy 60 mg a day and she has completed an opioid risk tool, which scores her at low risk for addiction. She has signed an opioid agreement. She denies use of tobacco and alcohol. PHYSICAL EXAMINATION: GENERAL: She was a little tearful today throughout the visit. VITAL SIGNS: Her blood pressure is 169/86, heart rate 66 and respirations 16. BMI is 29.8. [address] [address] PAIN MANAGEMENT CONSULTATION Name: FLACO HARRISON Room #: REG [facility] M..#: [id number] Admission: 05/14/18 ������������������ Attend Phys: Dejon Pierson MD Discharge: ������������������ Date of : 45 Report #: [id number] HEENT: Reveals pupils equal, round and react to light. EOMs are intact. Mucous membranes are moist. She has some tenderness in the right mandible. There is no allodynia of the face. Cervical range of motion is good. CHEST: Clear. CARDIAC: Rhythm is regular. IMPRESSION: 1. Trigeminal neuralgia. 2. Management of high risk medication under terms of written opioid agreement. All medications were provided for her today and we will see her back in 1 month. ____ upper mandible. Oral cavity is moist. IMPRESSION: 1. Trigeminal neuralgia. 2. Management of methadone under terms of an opioid agreement. This medication has worked extremely well. She has no side effects and carefully safeguards her medication. Without it, she is nearly nonfunctional because of the facial pain. PLAN: 1. Medications renewed for 1 month. We will see her back and continue with counseling when she comes. I want to make sure that she knows that she has a place where we are supportive of her and I would like to see if we could find a way to get her more involved with a Vietnamese community locally. 2. Prescriptions were DICTATION ENDS HERE ��������������������������������������������� ���������������������������������������� By: ��������������������������������������������� [id number] Dejon Pierson MD /nt
[2018-05-14 13:24] VITALS: BP 169/86
--- NOTE | 2018-05-14 13:28 | NUR ---
Pain Clinic Assessment: 1. History of Osteoarthritis: Not Applicable History of Rheumatoid Arthritis: Not Applicable 2. Height: 5 ft. 0 in. 152.4 cm. Weight: 149.2 lb. oz. 67.677 kg. Patient's BMI: 29.1 3. Vital Signs: BP: 169/86 Pulse: 66 Resp: 16 Temp: 02 Sat: 97 ECG Mon: 4. Pain Intensity: 8 5. Fall Risk: Dizziness: N Needs help standing or walking: N Fallen in the last 3 months: N Fall risk comments: 6. Patient on Blood Thinner: None 7. History of Hypertension: N 8. Opioid Therapy greater than 6 weeks: Y Opiate Contract Signed: 04/07/16 9. Risk Assessment Tool Provided: LOW RISK 0/0 10. Functional Assessment Tool: 11. Recreational Drug Use: Never Drug Type: Tobacco Use: Never Smoker Tobacco Type: Amount or Packs/day: How Many Years: Alcohol Use: No Frequency: Quant:
== END ==
LOC: PAIN 06:53
DX: G50.0 Trigeminal neuralgia (principal); Z79.891 Long term (current) use of opiate analgesic; Z79.899 Other long term (current) drug therapy

== ENCOUNTER → 2018-06-11 | Outpatient (CLI) | payer OTHER ==
[~2018-06-11] VITALS: Ht 162.6 cm; Wt 66.8 kg
[~2018-06-11] MED LIST changes: +CYMBALTA30 MG PO
[2018-06-11 12:44] VITALS: BP 163/89
--- NOTE | 2018-06-11 13:00 | NUR ---
Pain Clinic Assessment: 1. History of Osteoarthritis: Not Applicable History of Rheumatoid Arthritis: Not Applicable 2. Height: 5 ft. 4 in. 162.6 cm. Weight: 147.2 lb. oz. 66.769 kg. Patient's BMI: 25.3 3. Vital Signs: BP: 163/89 Pulse: 80 Resp: 16 Temp: 02 Sat: 97 ECG Mon: 4. Pain Intensity: 7 5. Fall Risk: Dizziness: N Needs help standing or walking: N Fallen in the last 3 months: N Fall risk comments: 6. Patient on Blood Thinner: None 7. History of Hypertension: N 8. Opioid Therapy greater than 6 weeks: Y Opiate Contract Signed: 04/07/16 9. Risk Assessment Tool Provided: LOW RISK 0/0 10. Functional Assessment Tool: 11. Recreational Drug Use: Never Drug Type: Tobacco Use: Never Smoker Tobacco Type: Amount or Packs/day: How Many Years: Alcohol Use: No Frequency: Quant:
--- NOTE | 2018-06-12 07:54 | HPC ---
[facility] [address] [place] [address] PAIN MANAGEMENT CONSULTATION Name: FLACO HARRISON Room #: REG [facility] M.Fani.#: [id number] Admission: 06/11/18 ������������������ Attend Phys: Vivi Givens Discharge: ������������������ Date of : 45 Report #: [id number] THIS REPORT FOR: //name// CC: Vivi Mallory DATE OF SERVICE: 06/11/2018 CHIEF COMPLAINT: Trigeminal neuralgia. HISTORY OF PRESENT ILLNESS: The patient returns to the pain clinic today telling me that she has had a bad month. Her pain has been worse in her jaw, right-sided jaw pain this month. Her pain is 7/10 today. She tells me, we have been using a web application developer to Welsh to Filipino and Filipino to Welsh on her cell phones today since the web application developer phone has not been working. We were able to get it to work at the end of our visit today to help with discharge instructions. The patient tells me that her mood is slightly better. She does not feel like she is going to harm herself but she is still feeling depressed. The patient tells me she has not joined any community activities that Dr. Pierson had encouraged her to do in her last visit. She tells me her medications are helpful. She is not having any problems with constipation. She does take fruits and vegetables that helps with her constipation. ALLERGIES: TAPE and CONTRAST DYE. CURRENT LIST OF MEDICATIONS: Methadone 10 mg 2 tablets 3 times a day and hydrocodone 10/325 one tablet 3 times a day. PQRS: 1. Denies any history of osteoarthritis or rheumatoid arthritis. 2. Height is 5 feet 4 inches, weight is 147 and BMI is 25. 3. Vital signs: Blood pressure 163/89, pulse is 80, respirations 16 and oxygen sat is 97. 4. Pain score 7/10. 5. Fall risk. Denies dizziness, does not need help walking or standing. Has not fallen in the last 3 months. 6. The patient is not on any blood thinners or hypertension medicines. 7. Opioid therapy is greater than 6 weeks; therefore, an opioid signed contract is on the chart. 8. Risk assessment tool is low. Functional assessment is 41/70. The patient does not use recreational drugs. She does not smoke and she does not drink alcohol. We did check the prescription monitoring system. The patient is filling appropriately with her methadone and her hydrocodone doctors within our clinic. There is a drug screen on the chart. The patient tells me she does safeguard [facility] [address] [place] [address] PAIN MANAGEMENT CONSULTATION Name: FLACO HARRISON Room #: REG CLI Vicky#: [id number] Admission: 06/11/18 ������������������ Attend Phys: Vivi Givens Discharge: ������������������ Date of : 45 Report #: [id number] her medications. PHYSICAL EXAMINATION: GENERAL: This is a well-developed, well-nourished female who appears her stated age. She is alert and orientated today. Her affect is appropriate today, though she states she is slightly depressed. HEENT: Normocephalic and atraumatic. Extraocular eye muscles are intact. Mucous membranes are moist. Complains of right-sided jaw and gum pain. She has some tenderness at the right mandible. No allodynia on her face. IMPRESSION: 1. Trigeminal neuralgia. 2. Management of high risk medication under terms of written opioid agreement. 3. Depression. We reviewed the fact that opiate medications are being used to provide analgesia adequate to support activities of daily living, not attempting to achieve a specific pain score on the 0-10 Visual Analog Scale. The current opiate medications are providing sufficient analgesia to allow the patient to participate in activities of daily living. The patient is not exhibiting any aberrant behavior suggestive of drug diversion. The patient is not having any adverse reactions to medications. The patient is not suffering from daytime somnolence or mental acuity changes. The patient is managing opiate-induced constipation with appropriate tirp-pbw-nqrtktn agents and dietary considerations. The patient was counseled on concern for caution with operating a motor vehicle while using opiate medications. A physical exam was performed and the patient's functional status was evaluated. All patients with back pain were advised against the bed rest greater than 4 days and were advised to return to normal activities. Pain score assessment was noted and the treatment plan was reviewed with the patient. All current medications, both prescribed and OTC were reviewed and reconciled on the electronic medical record. Tobacco screening was accomplished and smoking cessation was advised when indicated. BMI was noted and diet/exercise modification was recommended for all patients following outside normal parameters. I reviewed with the patient today their responsibilities to safeguard prescription medications, reviewed their responsibility to utilize medications only as prescribed by the physician. They are to seek and receive pain medications only from 1 physician group ( [facility]). They are to use 1 pharmacy and keep the clinic informed if they change pharmacies. Their responsibilities include making followup visits in a timely fashion and to avoid abrupt discontinuation of medication usage. Their responsibilities further include bringing their medications (bottles from the pharmacy with residual pills) to the visit for possible confirmation of pill counts and the patient [address] [address] PAIN MANAGEMENT CONSULTATION Name: FLACO HARRISON Room #: REG [facility] Perry#: [id number] Admission: 06/11/18 ������������������ Attend Phys: Vivi Givens Discharge: ������������������ Date of : 45 Report #: [id number] understands it is their responsibility to submit to random drug screens to ensure both that the medications prescribed are present, and that no other controlled substances are present. All prescriptions provided today were generated electronically. PLAN: 1. We discussed treatment options with the patient today. She tells me that her medications are helpful in controlling her pain, though this past month due to a cold, her pain had been worse. She would like a refill of her methadone and her hydrocodone 1 month given each of these medications. 2. We discussed the patient's mood again today. She tells me that she is depressed. No tears noted or crying episodes at this appointment today. She did tell me that sometimes it is hard to go on with life but does not think that it has any thoughts of harming herself or hurting herself. We asked the patient if she had taken antidepressants in the past. She tells me she does not like the way they made her feel. Per our chart notes, it looks like she has tried Prozac in the past. I asked if she had tried Cymbalta, the patient thinks that she has not tried this medication. I explained to her that it helps with depression, but it also helps with nerve pain. The patient was willing to try this medication via the mechanical system technician phone. We told her that we will start her at a low dose of Cymbalta at 30 mg once a day for 1 month that it may take some time for it to feel that her depression is getting better. If after one month, she still is feeling some signs of depression, we may increase her to 60 mg. The patient is agreeable with this plan of care. 3. I questioned the patient if she had been joining the [place] community or engaging in any outside activities. She tells me that it is very difficult to get involved in the [place] community with her pain that they do not understand her pain problems. We again encouraged her to even spend time with her girlfriend that used to come and visit with her and go and be active in yazdanism or some kind of experiences outside her home. This should help with some of her depression. 4. The patient has made an appointment for 1 month time. We will address the changes in her medications. The patient verbalizes understanding through the mechanical system technician phone of the plan of care. 5. The patient seen in collaboration today with Dr. Dejon Pierson. ��������������������������������������������� <ELECTRONICALLY SIGNED> ���������������������������������������� By: Vivi Givens ��������������������������������������������� 06/12/18 0754 [id number] Vivi Givens /rola
== END ==
LOC: PAIN 06:53
DX: G50.0 Trigeminal neuralgia (principal); F32.9 Major depressive disorder, single episode, unspecified; Z79.899 Other long term (current) drug therapy

== ENCOUNTER → 2018-07-09 | Outpatient (CLI) | payer OTHER ==
[~2018-07-09] VITALS: Ht 162.6 cm; Wt 66.7 kg
[~2018-07-09] MED LIST changes: +LISINOPRIL-HCT1 EAC1 PO
[2018-07-09 12:45] VITALS: BP 147/82
--- NOTE | 2018-07-09 14:26 | NUR ---
Pain Clinic Assessment: 1. History of Osteoarthritis: Not Applicable History of Rheumatoid Arthritis: Not Applicable 2. Height: 5 ft. 4 in. 162.6 cm. Weight: 147.0 lb. oz. 66.679 kg. Patient's BMI: 25.2 3. Vital Signs: BP: 147/82 Pulse: 72 Resp: 16 Temp: 02 Sat: 98 ECG Mon: 4. Pain Intensity: 7 5. Fall Risk: Dizziness: Y Needs help standing or walking: N Fallen in the last 3 months: Y Fall risk comments: 6. Patient on Blood Thinner: None 7. History of Hypertension: Y 8. Opioid Therapy greater than 6 weeks: Y Opiate Contract Signed: 04/07/16 9. Risk Assessment Tool Provided: LOW RISK 0/0 10. Functional Assessment Tool: 11. Recreational Drug Use: Never Drug Type: Tobacco Use: Never Smoker Tobacco Type: Amount or Packs/day: How Many Years: Alcohol Use: No Frequency: Quant:
--- NOTE | 2018-07-10 14:38 | HPC ---
[facility] [address] [address] PAIN MANAGEMENT CONSULTATION Name: FLACO HARRISON Room #: REG [facility] M..#: [id number] Admission: 07/09/18 ������������������ Attend Phys: Vivi Givens Discharge: ������������������ Date of : 45 Report #: [id number] THIS REPORT FOR: //name// CC: Vivi Mallory DATE OF SERVICE: 07/09/2018 CHIEF COMPLAINT: Trigeminal neuralgia. HISTORY OF PRESENT ILLNESS: This is a very pleasant 72-year-old female who returns to the pain clinic today for refill of her pain medications for her ongoing trigeminal neuralgia. She tells me that her pain level today is 8/10, worse with weather changes, temperature changes and eating. Most of her pain is associated on her right jaw and gums. The medication is very helpful. On her last visit, we did prescribe antidepressant, Cymbalta. The patient tells me that it made her feel woozy and slightly dizzy. She was walking unsteadily. She took it for about a week and then stopped that medication. She tells me she does not feel like she needs any medication for her depression. She has been walking and be more active and feeling better. At the last visit, her blood pressure had been elevated for several months. We encouraged her to go to the primary care doctor, which she did go to and has now started on lisinopril for her blood pressure. CURRENT ALLERGIES: TAPE AND CONTRAST DYE. CURRENT MEDICATIONS: Methadone 10 mg 2 tablets 3 times a day, hydrocodone 10/325 three times a day, lisinopril/hydrochlorothiazide daily. PQRS: 1. She denies any history of osteoarthritis or rheumatoid arthritis. Her height is 5 feet 4 inches, weight is 147 and BMI is 25. 2. Vital signs: 147/82, pulse is 72, respirations 16, oxygen sat is 98%. Pain score is 7-8/10. Fall risk, complains of dizziness, does not need help walking or standing. Has fallen in the last 3 months. 3. The patient is not on any blood thinner. She does take medicine now for hypertension. Her opioid therapy is greater than 6 weeks; therefore, no opioid signed contract is on the chart. 4. Risk assessment tool is low. Functional assessment is 41/70. 5. Recreational drug use, she denies. She is not a smoker and does not drink alcohol. We did check the prescription monitoring system. The patient is filling appropriately for her medications and is due for those today. There is also a drug screen on the chart on this patient, but we will check one next visit. PHYSICAL EXAMINATION: [address] [address] PAIN MANAGEMENT CONSULTATION Name: FLACO HARRISON Room #: REG [facility] Perry#: [id number] Admission: 07/09/18 ������������������ Attend Phys: Vivi Givens Discharge: ������������������ Date of : 45 Report #: [id number] GENERAL: This is a well-developed, well-nourished female who appears her stated age. She is alert and orientated today. Her affect is appropriate and upbeat. HEENT: Normocephalic, atraumatic. Extraocular eye muscles are intact. Mucous membranes are moist. Right-sided face and gum pain is complained of. She has some tenderness at the right mandible. No allodynia on her face. IMPRESSION: 1. Trigeminal neuralgia. 2. Management of high-risk medications under terms of written opioid agreement. 3. Depression. We reviewed the fact that opiate medications are being used to provide analgesia adequate to support activities of daily living, not attempting to achieve a specific pain score on the 0-10 Visual Analog Scale. The current opiate medications are providing sufficient analgesia to allow the patient to participate in activities of daily living. The patient is not exhibiting any aberrant behavior suggestive of drug diversion. The patient is not having any adverse reactions to medications. The patient is not suffering from daytime somnolence or mental acuity changes. The patient is managing opiate-induced constipation with appropriate kddz-zoc-fslotmr agents and dietary considerations. The patient was counseled on concern for caution with operating a motor vehicle while using opiate medications. A physical exam was performed and the patient's functional status was evaluated. All patients with back pain were advised against the bed rest greater than 4 days and were advised to return to normal activities. Pain score assessment was noted and the treatment plan was reviewed with the patient. All current medications, both prescribed and OTC were reviewed and reconciled on the electronic medical record. Tobacco screening was accomplished and smoking cessation was advised when indicated. BMI was noted and diet/exercise modification was recommended for all patients following outside normal parameters. I reviewed with the patient today their responsibilities to safeguard prescription medications, reviewed their responsibility to utilize medications only as prescribed by the physician. They are to seek and receive pain medications only from 1 physician group ([facility]). They are to use 1 pharmacy and keep the clinic informed if they change pharmacies. Their responsibilities include making followup visits in a timely fashion and to avoid abrupt discontinuation of medication usage. Their responsibilities further include bringing their medications (bottles from the pharmacy with residual pills) to the visit for possible confirmation of pill counts and the patient understands it is their responsibility to submit to random drug screens to ensure both that the medications prescribed are present, and that no other controlled substances are present. All prescriptions provided today were [address] [place] [address] PAIN MANAGEMENT CONSULTATION Name: FLACO HARRISON Room #: REG [facility]..#: [id number] Admission: 07/09/18 ������������������ Attend Phys: Vivi Givens Discharge: ������������������ Date of : 45 Report #: [id number] generated electronically. PLAN: 1. We discussed treatment options with the patient today via the tiller man phone. She tells me that the Cymbalta that we had prescribed for her for her depression made her dizzy and she did have a fall at home, but did not hurt herself, so she stopped the medicine after 5 days. She did not call us to report this, but we explained to her that is fine that she did not take the medicine any longer, we do not want her to be injured. The patient tells me she is feeling more upbeat today. She has been walking and exercising and trying to get out more in the community. 2. The patient tells us the methadone and hydrocodone are helpful for her pain. Scripts were renewed today for methadone 10 mg 2 tablets 3 times a day, #180 and hydrocodone 10/325, #90. 3. The patient is seen in collaboration with Dr. Dejon Pierson today who also saw the patient. The patient will return in 1 month for followup visit. ��������������������������������������������� <ELECTRONICALLY SIGNED> ���������������������������������������� By: Vivi Givens ��������������������������������������������� 07/10/18 1438 1430 0430 Vivi Givens /rola
== END ==
LOC: PAIN 06:55
DX: G50.0 Trigeminal neuralgia (principal); F32.9 Major depressive disorder, single episode, unspecified; Z91.09 Other allergy status, other than to drugs and biological substances; Z79.899 Other long term (current) drug therapy; Z79.891 Long term (current) use of opiate analgesic

== ENCOUNTER → 2018-08-06 | Outpatient (CLI) | payer OTHER ==
[~2018-08-06] VITALS: Ht 162.6 cm; Wt 66.7 kg
[2018-08-06 12:53] VITALS: BP 124/77
--- NOTE | 2018-08-06 13:01 | NUR ---
Pain Clinic Assessment: 1. History of Osteoarthritis: Not Applicable History of Rheumatoid Arthritis: Not Applicable 2. Height: 5 ft. 4 in. 162.6 cm. Weight: 147.0 lb. oz. 66.679 kg. Patient's BMI: 25.2 3. Vital Signs: BP: 124/77 Pulse: 87 Resp: 16 Temp: 02 Sat: 96 ECG Mon: 4. Pain Intensity: 8 5. Fall Risk: Dizziness: N Needs help standing or walking: N Fallen in the last 3 months: Y Fall risk comments: 6. Patient on Blood Thinner: None 7. History of Hypertension: Y 8. Opioid Therapy greater than 6 weeks: Y Opiate Contract Signed: 04/07/16 9. Risk Assessment Tool Provided: LOW RISK 0 10. Functional Assessment Tool: 11. Recreational Drug Use: Never Drug Type: Tobacco Use: Never Smoker Tobacco Type: Amount or Packs/day: How Many Years: Alcohol Use: No Frequency: Quant:
--- NOTE | 2018-08-06 13:01 | NUR ---
Document wound assessment on appropriate Wound Pressure, Monitor intervention!
--- NOTE | 2018-08-07 08:41 | HPC ---
[facility] [address] [place] [address] PAIN MANAGEMENT CONSULTATION Name: FLACO HARRISON Room #: REG [facility] M.R.#: [id number] Admission: 08/06/18 ������������������ Attend Phys: Vivi Givens Discharge: ������������������ Date of : 45 Report #: [id number] THIS REPORT FOR: //name// CC: Vivi Mallory DATE OF SERVICE: 08/06/2018 CHIEF COMPLAINT: Trigeminal neuralgia. HISTORY OF PRESENT ILLNESS: This is a very pleasant 72-year-old female who returns to the pain clinic today for refill of her medications for her ongoing trigeminal neuralgia and the nurse and I are presently using the can solderer phone at the same time to talk with the patient, she tells me that her pain score is 8/10, mostly in her right lower jaw that she is doing fine. No changes since her last visit, she tells me that her pain is 8/10, mostly a sharp stabbing pain when she is eating or with the weather changes. Sometimes it is constant, but the medications do help her. She denies any problems with constipation or daytime sleepiness. She does eat prunes and lots of fruit. She tells me that she does not socialize very much with friends due to some of her pain, but she is trying to exercise slightly more and seems happy today at her visit. ALLERGIES: TAPE AND CONTRAST DYE. CURRENT LIST OF MEDICATIONS: Methadone 10 mg 2 tablets 3 times a day, hydrocodone 10/325 t.i.d., lisinopril/hydrochlorothiazide daily. PQRS: 1. She denies any history of rheumatoid or osteoarthritis. 2. Height is 5 feet 4 inches, weight is 147, BMI is 25. 3. VITAL SIGNS: Blood signs 124/77, pulse is 87, respirations 16, oxygen sat is 96. 4. Pain score is 8/10. 5. Fall risk. Denies dizziness, does not need help walking or standing. She has not fallen in the last 3 months. 6. The patient is not on any blood thinners. She does take medicine for hypertension. 7. Opioid therapy is greater than 6 weeks; therefore, an opioid signed contract is on the chart. Her risk assessment tool is low. Her functional assessment is 41/70. 8. Recreational drug use, she denies. She is not a smoker and does not drink alcohol. We did check the prescription monitoring system. The patient is filling appropriately for her medications by Dr. Dejon Pierson, [place] [address] PAIN MANAGEMENT CONSULTATION Name: FLACO HARRISON Room #: REG [facility] Perry#: [id number] Admission: 08/06/18 ������������������ Attend Phys: Vivi Givens Discharge: ������������������ Date of : 45 Report #: [id number] milliequivalent is quite high according to the CDC guidelines, 210 on our calculations or it could be as high as 270 on another calculation due to methadone converting very high to morphine. The patient is filling appropriately for her medications in a timely fashion under close guidelines and appointments from this clinic. PHYSICAL EXAMINATION: GENERAL: This is a well-developed, well-nourished female who appears her stated age. Placing her current pain score at 8/10. She is alert and orientated today and her affect is appropriate. HEENT: Normocephalic, atraumatic. Extraocular eye muscles are intact. Mucous membranes are moist. Right side of her face is tender as well as her gum along the right mandible. There is no allodynia on her face present today. MUSCULOSKELETAL: The patient walks with a normal gait and does not have any issues in her musculoskeletal areas. ASSESSMENT: 1. Trigeminal neuralgia. 2. Management of high-risk medications under terms a written opioid agreement. 3. Depression. We reviewed the fact that opiate medications are being used to provide analgesia adequate to support activities of daily living, not attempting to achieve a specific pain score on the 0-10 Visual Analog Scale. The current opiate medications are providing sufficient analgesia to allow the patient to participate in activities of daily living. The patient is not exhibiting any aberrant behavior suggestive of drug diversion. The patient is not having any adverse reactions to medications. The patient is not suffering from daytime somnolence or mental acuity changes. The patient is managing opiate-induced constipation with appropriate uqho-wuv-shvyzxl agents and dietary considerations. The patient was counseled on concern for caution with operating a motor vehicle while using opiate medications. A physical exam was performed and the patient's functional status was evaluated. All patients with back pain were advised against the bed rest greater than 4 days and were advised to return to normal activities. Pain score assessment was noted and the treatment plan was reviewed with the patient. All current medications, both prescribed and OTC were reviewed and reconciled on the electronic medical record. Tobacco screening was accomplished and smoking cessation was advised when indicated. BMI was noted and diet/exercise modification was recommended for all patients following outside normal parameters. I reviewed with the patient today their responsibilities to safeguard prescription medications, reviewed their responsibility to utilize medications only as prescribed by the physician. They are to seek and receive pain [address] [address] PAIN MANAGEMENT CONSULTATION Name: FLACO HARRISON Room #: REG [facility] Perry#: [id number] Admission: 08/06/18 ������������������ Attend Phys: Vivi Givens Discharge: ������������������ Date of : 45 Report #: [id number] medications only from 1 physician group ( [facility]). They are to use 1 pharmacy and keep the clinic informed if they change pharmacies. Their responsibilities include making followup visits in a timely fashion and to avoid abrupt discontinuation of medication usage. Their responsibilities further include bringing their medications (bottles from the pharmacy with residual pills) to the visit for possible confirmation of pill counts and the patient understands it is their responsibility to submit to random drug screens to ensure both that the medications prescribed are present, and that no other controlled substances are present. All prescriptions provided today were generated electronically. PLAN: 1. We discussed treatment options with the patient today. The patient tells me she is doing quite well on her current medication and would like refills of those today. Scripts given for her methadone 10 mg 2 t.i.d., quantity 180 and hydrocodone 10/325, #90. 2. We discussed the patient's depression. She tells me that she has been dealing with it, did not like to take the Cymbalta due to side effects. She is trying to get out and walk more at least 3-4 times a week. She does not really see very many people, but she tells me that she is dealing with her depression. 3. The patient will return in 1 month's time to see Dr. Dejon Piersno. He did see her today in collaborative care. ��������������������������������������������� <ELECTRONICALLY SIGNED> ���������������������������������������� By: Vivi Givens ��������������������������������������������� 08/07/18 0841 1422 0228 Vivi degroot
== END ==
LOC: PAIN 06:45
DX: G50.0 Trigeminal neuralgia (principal); I10 Essential (primary) hypertension; F32.9 Major depressive disorder, single episode, unspecified; Z79.899 Other long term (current) drug therapy; Z79.891 Long term (current) use of opiate analgesic

== ENCOUNTER → 2018-10-01 | Outpatient (CLI) | payer OTHER ==
[~2018-10-01] VITALS: Ht 152.4 cm; Wt 65.7 kg
[~2018-10-01] MED LIST changes: +COLACE 100 MG100 MG PO
[2018-10-01 13:21] VITALS: BP 128/71
--- NOTE | 2018-10-01 13:56 | NUR ---
Pain Clinic Assessment: 1. History of Osteoarthritis: Not Applicable History of Rheumatoid Arthritis: Not Applicable 2. Height: 5 ft. 0 in. 152.4 cm. Weight: 144.8 lb. oz. 65.681 kg. Patient's BMI: 28.3 3. Vital Signs: BP: 128/71 Pulse: 82 Resp: 16 Temp: 02 Sat: 97 ECG Mon: 4. Pain Intensity: 7 5. Fall Risk: Dizziness: N Needs help standing or walking: N Fallen in the last 3 months: N Fall risk comments: 6. Patient on Blood Thinner: None 7. History of Hypertension: Y 8. Opioid Therapy greater than 6 weeks: Y Opiate Contract Signed: 04/07/16 9. Risk Assessment Tool Provided: LOW RISK 0 10. Functional Assessment Tool: 11. Recreational Drug Use: Never Drug Type: Tobacco Use: Never Smoker Tobacco Type: Amount or Packs/day: How Many Years: Alcohol Use: No Frequency: Quant:
--- NOTE | 2018-10-02 13:35 | HPC ---
[facility] [place] [address] PAIN MANAGEMENT CONSULTATION Name: FLACO HARRISON Room #: REG [facility] M.Fani.#: [id number] Admission: 10/01/18 ������������������ Attend Phys: Vivi Givens Discharge: ������������������ Date of : 45 Report #: [id number] THIS REPORT FOR: //name// CC: Vivi Mallory DATE OF SERVICE: 10/01/2018 CHIEF COMPLAINT: Trigeminal neuralgia, facial pain. HISTORY OF PRESENT ILLNESS: This is a very pleasant 73-year-old female who returns to the pain clinic today for refill of her medications that she uses to help treat her ongoing facial pain as a result of trigeminal neuralgia. This affects her right side of her face, mostly her right lower jaw and gumline. She tells me her pain score is a 7/10 today. This is exacerbated by eating things, but is mostly a constant pain. The medications are very helpful. Today, we are using the concrete swimming pool installer phone to help with this visit. The patient tells us that she has been exercising 3 times a week at the gym including swimming, running on a treadmill and lifting weights. She otherwise does not have very much socialization with people, she tells us because her pain keeps her home quite a bit. She does not have any trips planned or has not seen any family anytime soon. She tells me that she does not have any problems with constipation since she is trying to manage that with her green leafy vegetables. She had been recently hospitalized with obstipation. She would like a refill of her medications today. ALLERGIES: TAPE AND CONTRAST DYE. CURRENT LIST OF MEDICATIONS: Methadone 20 mg 3 times a day, hydrocodone 10/325 three times a day, MiraLax, Colace, lisinopril and Cymbalta. PQRS: 1. She denies any history of rheumatoid arthritis or osteoarthritis. Her height is 5 feet, weight is 144, BMI is 28. 2. Vital signs, 128/71, pulse is 82, respirations 16, oxygen sat is 97. 3. Pain score 7/10. 4. Fall risk, denies dizziness, does not need help walking or standing, has not fallen in the last 3 months. 5. The patient is not on any blood thinners, but does take medicine for hypertension. 6. Opioid therapy is greater than 6 weeks; therefore, an opioid signed contract is on the chart. Her risk assessment tool is low. Functional assessment is 41/70. 7. Recreational drug use, she denies. She is not a smoker and does not drink [place] [address] PAIN MANAGEMENT CONSULTATION Name: FLACO HARRISON Room #: REG [facility] Perry#: [id number] Admission: 10/01/18 ������������������ Attend Phys: Vivi Givens Discharge: ������������������ Date of : 45 Report #: [id number] According to the prescription monitoring system, the patient is filling appropriately and is due for her medications to be filled today. PHYSICAL EXAMINATION: GENERAL: This is alert and orientated, well-developed 73-year-old female who appears her stated age, placing her current pain score today at 7/10. She is alert and orientated. HEENT: Normocephalic, atraumatic. Extraocular eye muscles are intact. Mucous membranes are moist. There is no allodynia on her right side of her face. She does complain of tenderness along the right mandible gumline and anterior gumline. MUSCULOSKELETAL: The patient walks with a normal gait and does not have any complaints in her back or legs. ASSESSMENT: 1. Trigeminal neuralgia. 2. Management of high risk medications under terms of written opioid agreement. 3. Depression. We reviewed the fact that opiate medications are being used to provide analgesia adequate to support activities of daily living, not attempting to achieve a specific pain score on the 0-10 Visual Analog Scale. The current opiate medications are providing sufficient analgesia to allow the patient to participate in activities of daily living. The patient is not exhibiting any aberrant behavior suggestive of drug diversion. The patient is not having any adverse reactions to medications. The patient is not suffering from daytime somnolence or mental acuity changes. The patient is managing opiate-induced constipation with appropriate mipv-qcy-kpnwjlc agents and dietary considerations. The patient was counseled on concern for caution with operating a motor vehicle while using opiate medications. A physical exam was performed and the patient's functional status was evaluated. All patients with back pain were advised against the bed rest greater than 4 days and were advised to return to normal activities. Pain score assessment was noted and the treatment plan was reviewed with the patient. All current medications, both prescribed and OTC were reviewed and reconciled on the electronic medical record. Tobacco screening was accomplished and smoking cessation was advised when indicated. BMI was noted and diet/exercise modification was recommended for all patients following outside normal parameters. I reviewed with the patient today their responsibilities to safeguard prescription medications, reviewed their responsibility to utilize medications only as prescribed by the physician. They are to seek and receive pain medications only from 1 physician group ([facility]). They are to use [address] [address] PAIN MANAGEMENT CONSULTATION Name: FLACO HARRISON Room #: REG [facility] Perry#: [id number] Admission: 10/01/18 ������������������ Attend Phys: Vivi Givens Discharge: ������������������ Date of : 45 Report #: [id number] pharmacy and keep the clinic informed if they change pharmacies. Their responsibilities include making followup visits in a timely fashion and to avoid abrupt discontinuation of medication usage. Their responsibilities further include bringing their medications (bottles from the pharmacy with residual pills) to the visit for possible confirmation of pill counts and the patient understands it is their responsibility to submit to random drug screens to ensure both that the medications prescribed are present, and that no other controlled substances are present. All prescriptions provided today were generated electronically. PLAN: 1. We discussed treatment options with the patient today. The patient tells me that she is doing quite well with her current regimen, is not having any problems with constipation since she has been taking MiraLax, Colace and lots of green leafy vegetables. No hospitalizations present since her last visit. 2. Scripts given today for methadone 10 mg tablets, the patient takes 2-3 times a day, quantity is 180 for today and 4-week release as well as hydrocodone 10/325 t.i.d., #90 for today and 4-week release. 3. The patient is encouraged to socialize as much as she is able. Dr. Dejon Pierson did see the patient and encourage this as well. 4. This visit was done using the concrete swimming pool installer phone. Dr. Dejon Pierson did collaborate with the patient as well as saw her today. ��������������������������������������������� <ELECTRONICALLY SIGNED> ���������������������������������������� By: Vivi Givens ��������������������������������������������� 10/02/18 1335 1423 1017 Vivi degroot
== END ==
LOC: PAIN 06:59
DX: M54.2 Cervicalgia (principal); R51 Headache; F32.9 Major depressive disorder, single episode, unspecified; Z79.891 Long term (current) use of opiate analgesic

== ENCOUNTER 2018-11-29 13:03 | Emergency (ER) | payer OTHER ==
[~2018-11-29] VITALS: Ht 152.4 cm; Wt 65.8 kg
--- NOTE | ~2018-11-29 | EKG ---
[place] [address] [address] [facility] [place] [employer] [place] [address] ELECTROCARDIOGRAM REPORT Name: HUNTERFLACO Room #: PRE M.R.#: [id number] Admission: Attend Phys: Discharge: Date of : 45 Report #: [id number] THIS REPORT FOR: //name// [facility] ED Test Date: 2018-11-29 Test Time: 13:39:44 Pat Name: FLACO HARRISON Department: Room: Gender: F Extrusion Press Adjuster: RAH : 1945 Requested By: Jv Beltran Order Number: [id number] MD: Measurements Intervals [place] Rate: 80 P: 45 [place]: 157 QRS: -19 QRSD: 90 T: -5 QT: 432 QTc: 499 Interpretive Statements Sinus rhythm Left atrial enlargement Left ventricular hypertrophy Inferior infarct, old Compared to ECG 08/30/2018 01:15:16 Atrial abnormality now present Left ventricular hypertrophy now present Sinus tachycardia no longer present ST (T wave) deviation no longer present Myocardial infarct finding still present [email or web address] By: [id number] Epiphany MD Candace /EPI
[2018-11-29 13:19] LABS: URINE BILIRUBIN NEGATIVE (Negative); URINE BLOOD TRACE (Negative); URINE CLARITY CLEAR; URINE COLOR YELLOW; URINE GLUCOSE-RANDOM* NEGATIVE (Negative); URINE KETONES NEGATIVE (Negative); URINE LEUKOCYTES-REFLEX TRACE (Negative); URINE NITRITE-REFLEX NEGATIVE (Negative); URINE PROTEIN (DIPSTICK) NEGATIVE (Negative); URINE SPECIFIC GRAVITY <= 1.005 (1.005-1.035); URINE UROBILINOGEN 0.2 E.U./dl (0.2-1.0)
[2018-11-29 17:07] VITALS: BP 108/68
== END 2018-11-29 17:08 | disposition home or self-care (01) ==
LOC: ER 13:03
PROVIDERS: Emergency Medicine
DX: K59.00 Constipation, unspecified (principal); Z90.13 Acquired absence of bilateral breasts and nipples; Z90.710 Acquired absence of both cervix and uterus; Z85.3 Personal history of malignant neoplasm of breast; Z98.890 Other specified postprocedural states; Z91.041 Radiographic dye allergy status; Z91.048 Other nonmedicinal substance allergy status

== ENCOUNTER → 2018-12-06 | Outpatient (CLI) | payer OTHER ==
[~2018-12-06] VITALS: Ht 152.4 cm; Wt 65.3 kg
[~2018-12-06] MED LIST changes: +COLACE100 MG PO; +HYDROCODON-ACE1 EAC7 PO; +MOVANTIK25 MG PO; +ZESTORETIC 20-1 EAC3 PO
[2018-12-06 09:45] VITALS: BP 135/75
--- NOTE | 2018-12-06 10:21 | NUR ---
Pain Clinic Assessment: 1. History of Osteoarthritis: UNKNOWN History of Rheumatoid Arthritis: NO 2. Height: 5 ft. 0 in. 152.4 cm. Weight: 144.0 lb. oz. 65.318 kg. Patient's BMI: 28.1 3. Vital Signs: BP: 135/75 Pulse: 64 Resp: 14 Temp: 02 Sat: 98 ECG Mon: 4. Pain Intensity: 7 5. Fall Risk: Dizziness: N Needs help standing or walking: N Fallen in the last 3 months: N Fall risk comments: 6. Patient on Blood Thinner: None 7. History of Hypertension: Y 8. Opioid Therapy greater than 6 weeks: Y Opiate Contract Signed: 04/07/16 9. Risk Assessment Tool Provided: LOW RISK 0 10. Functional Assessment Tool: 11. Recreational Drug Use: Never Drug Type: Tobacco Use: Never Smoker Tobacco Type: Amount or Packs/day: How Many Years: Alcohol Use: No Frequency: Quant:
--- NOTE | 2018-12-17 07:56 | HPC ---
[facility] [address] [place] [address] PAIN MANAGEMENT CONSULTATION Name: FLACO HARRISON Room #: REG ERICKSON Perry#: [id number] Admission: 12/06/18 Attend Phys: Vivi Givens Discharge: Date of : 45 Report #: [id number] THIS REPORT FOR: //name// CC: Vivi Pierson MD DATE OF SERVICE: 12/06/2018 CHIEF COMPLAINT: Trigeminal neuralgia, facial pain. HISTORY OF PRESENT ILLNESS: This is a very pleasant 73-year-old female who returns to the pain clinic today for refill of her medications that she uses to help treat her ongoing trigeminal neuralgia that affects her right lower jaw and gums. We are using the traffic director phone today with Dr. Pierson present for part of the meeting. She reports that her pain score is 7/10. It is a sharp stabbing pain, though feels that the medications are very beneficial in controlling her pain. The patient has been in the Emergency Room again for constipation. She tells me that she had not gone to the bathroom for almost a week and did go to the Emergency Room where they help treat her. She reports that she would take MiraLax occasionally, but not on a daily basis. She had had a history of this problem in August and then was better for a short time before becoming constipated again that required her to go to the hospital. ALLERGIES: TAPE AND CONTRAST DYE. CURRENT LIST OF MEDICATIONS: MiraLax p.r.n., Zestoretic daily, methadone 20 mg 3 times a day, hydrocodone 10/325 t.i.d. p.r.n. and Cymbalta 30 mg daily. PQRS: 1. She denies any history of osteoarthritis or rheumatoid arthritis. 2. Height is 5 feet, weight is 144, BMI is 28. 3. Vital signs 135/75, pulse is 64, respirations 14, oxygen sat is 98. 4. Pain score is 7/10. 5. Denies dizziness, does not need help walking or standing, has not fallen in the last 3 months. 6. The patient is not on any blood thinners, but does take medicine for hypertension. 7. Opioid therapy is greater than 6 weeks; therefore, an opioid signed contract is on the chart. Risk assessment tool is low. Functional assessment is 41/70. 8. Recreational drug use, she denies. She is not a smoker and does not drink alcohol. [address] [address] PAIN MANAGEMENT CONSULTATION Name: FLACO HARRISON Room #: REG CLGabby Perry#: [id number] Admission: 12/06/18 Attend Phys: Vivi Givens Discharge: Date of : 45 Report #: [id number] According to the prescription monitoring system, the patient is filling appropriately for her medications. There is also a recent drug screen on the chart that is appropriate for her medications as well. PHYSICAL EXAMINATION: GENERAL: This is an alert and orientated 73-year-old female who appears her stated age, placing her current pain score today at 7/10. She is alert and orientated, speaking broken [place] Citizen but using a floral artist phone. HEENT: Normocephalic, atraumatic. Extraocular eye muscles are intact. Mucous membranes are moist. There is no allodynia on her right side of her face. She does complain of tenderness along her right jaw. MUSCULOSKELETAL: The patient walks with a normal gait, does not have any complaints of back pain or leg pain. ASSESSMENT: 1. Trigeminal neuralgia. 2. Depression. 3. Opioid-induced constipation with hospitalization and ER visits. 4. Management of high risk medications under terms of written opioid agreement. We reviewed the fact that opiate medications are being used to provide analgesia adequate to support activities of daily living, not attempting to achieve a specific pain score on the 0-10 Visual Analog Scale. The current opiate medications are providing sufficient analgesia to allow the patient to participate in activities of daily living. The patient is not exhibiting any aberrant behavior suggestive of drug diversion. The patient is not having any adverse reactions to medications. The patient is not suffering from daytime somnolence or mental acuity changes. The patient is managing opiate-induced constipation with appropriate djvq-lby-esetrmi agents and dietary considerations. The patient was counseled on concern for caution with operating a motor vehicle while using opiate medications. A physical exam was performed and the patient's functional status was evaluated. All patients with back pain were advised against the bed rest greater than 4 days and were advised to return to normal activities. Pain score assessment was noted and the treatment plan was reviewed with the patient. All current medications, both prescribed and OTC were reviewed and reconciled on the electronic medical record. Tobacco screening was accomplished and smoking cessation was advised when indicated. BMI was noted and diet/exercise modification was recommended for all patients following outside normal parameters. I reviewed with the patient today their responsibilities to safeguard prescription medications, reviewed their responsibility to utilize medications only as prescribed by the physician. They are to seek and receive pain medications only from 1 physician group ([facility]). They are to use [address] [address] PAIN MANAGEMENT CONSULTATION Name: FLACO HARRISON Room #: REG CLGabby Perry#: [id number] Admission: 12/06/18 Attend Phys: Vivi Givens Discharge: Date of : 45 Report #: [id number] pharmacy and keep the clinic informed if they change pharmacies. Their responsibilities include making followup visits in a timely fashion and to avoid abrupt discontinuation of medication usage. Their responsibilities further include bringing their medications (bottles from the pharmacy with residual pills) to the visit for possible confirmation of pill counts and the patient understands it is their responsibility to submit to random drug screens to ensure both that the medications prescribed are present, and that no other controlled substances are present. All prescriptions provided today were generated electronically. PLAN: 1. We discussed treatment options with the patient today. The patient has recently been to the hospital again for problems with constipation. We discussed this with her at her last visit to try and take MiraLax on a daily basis, though she tells me she does not take MiraLax daily. She does not like the consistency of it; therefore, I think since she has tried MiraLax, Colace, Senokot, vegetables, liquids, we will encourage her to try Movantik once a day. She does not have any issues that would prevent her from having the full 25 mg dose. I encouraged her to take it in the morning with plenty of liquids and to take it every day to help relieve this constipation and hopefully avoid further hospitalizations. 2. Also based on her continued side effects from her opioids, we will decrease her hydrocodone to 5/325. This is a 50% reduction in the hydrocodone, but overall about a 10% reduction in her overall pain medication. We will continue at the same rate of her methadone since that is the most beneficial in controlling her trigeminal neuralgia. Dr. Pierson and I explained this to the patient via the traffic director phone and she verbalizes understanding. 3. Scripts given today for methadone 10 mg pills two every 8 hours, #180 for release today and 4-week and hydrocodone 5/325, #90 for today and 4 weeks and Movantik 25 mg, #30 with one additional refill was also given. 4. The patient reports that she has no trip to [place] planned in the near future. The patient will return in 2 months. The patient is seen in collaborated care today by Dr. Dejon Pierson. <ELECTRONICALLY SIGNED> By: Vivi Givens 12/17/18 [id number] Vivi Givens /nt
== END ==
LOC: PAIN 10-29 06:54
DX: G50.0 Trigeminal neuralgia (principal); F32.9 Major depressive disorder, single episode, unspecified; Z79.891 Long term (current) use of opiate analgesic; Z79.899 Other long term (current) drug therapy; Z91.041 Radiographic dye allergy status

== ENCOUNTER → 2019-01-28 | Outpatient (CLI) | payer OTHER ==
[~2019-01-28] VITALS: Ht 152.4 cm; Wt 67.9 kg
[~2019-01-28] MED LIST changes: +KRISTALOSE20 GM PO; +LACTULOSE PO
[2019-01-28 12:54] VITALS: BP 148/77
--- NOTE | 2019-01-28 13:31 | NUR ---
Pain Clinic Assessment: 1. History of Osteoarthritis: Not Applicable History of Rheumatoid Arthritis: NO 2. Height: 5 ft. 0 in. 152.4 cm. Weight: 149.8 lb. oz. 67.949 kg. Patient's BMI: 29.3 3. Vital Signs: BP: 148/77 Pulse: 68 Resp: 16 Temp: 02 Sat: 97 ECG Mon: 4. Pain Intensity: 8-9 5. Fall Risk: Dizziness: N Needs help standing or walking: N Fallen in the last 3 months: N Fall risk comments: 6. Patient on Blood Thinner: None 7. History of Hypertension: Y 8. Opioid Therapy greater than 6 weeks: Y Opiate Contract Signed: 04/07/16 9. Risk Assessment Tool Provided: LOW RISK 0 10. Functional Assessment Tool: 11. Recreational Drug Use: Never Drug Type: Tobacco Use: Never Smoker Tobacco Type: Amount or Packs/day: How Many Years: Alcohol Use: No Frequency: Quant:
--- NOTE | 2019-01-29 08:58 | HPC ---
[facility] [address] [place] [address] PAIN MANAGEMENT CONSULTATION Name: FLACO HARRISON Room #: REG [facility] MRajni.#: [id number] Admission: 01/28/19 Attend Phys: Vivi Givens Discharge: Date of : 45 Report #: [id number] THIS REPORT FOR: //name// CC: Vivi Thompsonkassidy Mohamud DATE OF SERVICE: 01/28/2019 CHIEF COMPLAINT: Trigeminal neuralgia, facial pain. HISTORY OF PRESENT ILLNESS: This is a very pleasant 73-year-old female who returns to the pain clinic today for refill of her medications that she uses to take her on for her ongoing right trigeminal neuralgia. She is reporting a score of 8 to 9 today in her right lower jaw. She tells me the weather has increased her pain due to the temperature changes. Her pain is also worse with eating. It is along her gumline that is a sharp stabbing pain. She feels that the methadone does help. We did decrease her hydrocodone last time and she reports that she is doing okay with this decrease, but wishes to have it back to her previous amount. The patient does report less constipation. We started her on lactulose, which she has been taking every day and she reports this is controlling her constipation quite well. She has not been to the Emergency Room since we started this medication. She is alert and orientated and not having any problems with daytime somnolence. We are using the armor senior sergeant phone today to help with translation. ALLERGIES: TAPE AND CONTRAST DYE. CURRENT LIST OF MEDICATIONS: Lactulose daily, lisinopril/hydrochlorothiazide daily, methadone 20 mg t.i.d., hydrocodone 5/325 three times a day. PQRS: 1. She does not have any rheumatoid or osteoarthritis. 2. Height is 5 feet, weight is 149, BMI is 29. 3. Vital signs 148/77, pulse is 68, respirations 16, oxygen sat is 97. 4. Pain score is 8 to 9. 5. Denies dizziness, does not need help walking or standing, has not fallen in the last 3 months. 6. The patient is not on any blood thinners, but does take medicine for hypertension. 7. Opioid therapy is greater than 6 weeks; therefore, an opioid signed contract is on the chart. Risk assessment tool is low. Functional assessment is 51/70. 8. Recreational drug use, she denies. She is not a smoker and does not drink alcohol. [address] [address] PAIN MANAGEMENT CONSULTATION Name: FLACO HARRISON Room #: REG CLI Vicky#: [id number] Admission: 01/28/19 Attend Phys: Vivi Givens Discharge: Date of : 45 Report #: [id number] According to the prescription monitoring system, the patient is due to fill her medications next week. There is no aberrant fills. She does keep her medications safe guarded. PHYSICAL EXAMINATION: GENERAL: This is an alert and orientated 73-year-old female who appears her stated age, placing her current pain score at 8-9/10 today. She is alert and orientated. We are using the wire winder phone since she speaks Serbian. HEENT: Normocephalic, atraumatic. Extraocular eye muscles are intact. Pain and tenderness along her right jawline. There is no allodynia noted on the right side of her face. Her gums are tender today. ASSESSMENT: 1. Trigeminal neuralgia. 2. Depression. 3. Opioid-induced constipation managed with lactulose. 4. Management of high risk medications under terms of written opioid agreement. We reviewed the fact that opiate medications are being used to provide analgesia adequate to support activities of daily living, not attempting to achieve a specific pain score on the 0-10 Visual Analog Scale. The current opiate medications are providing sufficient analgesia to allow the patient to participate in activities of daily living. The patient is not exhibiting any aberrant behavior suggestive of drug diversion. The patient is not having any adverse reactions to medications. The patient is not suffering from daytime somnolence or mental acuity changes. The patient is managing opiate-induced constipation with appropriate xqgv-pka-tmuhhma agents and dietary considerations. The patient was counseled on concern for caution with operating a motor vehicle while using opiate medications. A physical exam was performed and the patient's functional status was evaluated. All patients with back pain were advised against the bed rest greater than 4 days and were advised to return to normal activities. Pain score assessment was noted and the treatment plan was reviewed with the patient. All current medications, both prescribed and OTC were reviewed and reconciled on the electronic medical record. Tobacco screening was accomplished and smoking cessation was advised when indicated. BMI was noted and diet/exercise modification was recommended for all patients following outside normal parameters. I reviewed with the patient today their responsibilities to safeguard prescription medications, reviewed their responsibility to utilize medications only as prescribed by the physician. They are to seek and receive pain medications only from 1 physician group ([facility]). They are to use 1 pharmacy and keep the clinic informed if they change pharmacies. Their responsibilities include making followup visits in a timely fashion and to avoid [address] [address] PAIN MANAGEMENT CONSULTATION Name: FLACO HARRISON Room #: REG ERICKSON Perry#: [id number] Admission: 01/28/19 Attend Phys: Vivi Givens Discharge: Date of : 45 Report #: [id number] abrupt discontinuation of medication usage. Their responsibilities further include bringing their medications (bottles from the pharmacy with residual pills) to the visit for possible confirmation of pill counts and the patient understands it is their responsibility to submit to random drug screens to ensure both that the medications prescribed are present, and that no other controlled substances are present. All prescriptions provided today were generated electronically. PLAN: 1. We discussed treatment options with the patient today. The patient finds that her medications are beneficial allowing her to be active as she would like. She reports she is not having problems with depression and has stopped all of her antidepressant medications. 2. Today, we will e-prescribe her methadone 10 mg 2 tablets 3 times a day #180 for today and 4-week release as well as hydrocodone 5/325, #90 for today and 4-week release. 3. I will do lactulose renewal as well since that has been very beneficial in helping control her opioid-induced constipation. She reports having daily bowel movements using this medication. She has stopped her MiraLax and Colace as a result taking her lactulose. 4. The patient reports she is going to be alone for the holidays, but feels that is fine. She will not be visiting with family. 5. The patient is seen in collaboration today with Dr. Dejon Pierson who did see the patient as well. <ELECTRONICALLY SIGNED> By: Vivi Givens 01/29/19 [id number] 2038 Vivi degroot
== END ==
LOC: PAIN 06:51
DX: G50.0 Trigeminal neuralgia (principal); F32.9 Major depressive disorder, single episode, unspecified; Z79.891 Long term (current) use of opiate analgesic

== ENCOUNTER → 2019-03-11 | Outpatient (CLI) | payer OTHER ==
[~2019-03-11] VITALS: Ht 152.4 cm; Wt 68.6 kg
[2019-03-11 14:18] VITALS: BP 146/78
--- NOTE | 2019-03-11 14:30 | NUR ---
Pain Clinic Assessment: 1. History of Osteoarthritis: Not Applicable History of Rheumatoid Arthritis: NO 2. Height: 5 ft. 0 in. 152.4 cm. Weight: 151.2 lb. oz. 68.584 kg. Patient's BMI: 29.5 3. Vital Signs: BP: 146/78 Pulse: 81 Resp: 16 Temp: 02 Sat: 97 ECG Mon: 4. Pain Intensity: 10 5. Fall Risk: Dizziness: N Needs help standing or walking: N Fallen in the last 3 months: N Fall risk comments: 6. Patient on Blood Thinner: None 7. History of Hypertension: Y 8. Opioid Therapy greater than 6 weeks: Y Opiate Contract Signed: 04/07/16 9. Risk Assessment Tool Provided: LOW RISK 0 10. Functional Assessment Tool: 11. Recreational Drug Use: Never Drug Type: Tobacco Use: Never Smoker Tobacco Type: Amount or Packs/day: How Many Years: Alcohol Use: No Frequency: Quant:
--- NOTE | 2019-03-12 15:32 | HPC ---
[facility] [address] [place] [address] PAIN MANAGEMENT CONSULTATION Name: FLACO HARRISON Room #: REG [facility] M..#: [id number] Admission: 03/11/19 Attend Phys: Vivi Givens Discharge: Date of : 45 Report #: [id number] THIS REPORT FOR: //name// CC: Vivi Pierson MD DATE OF SERVICE: 03/11/2019 CHIEF COMPLAINT: Trigeminal neuralgia, right facial pain. HISTORY OF PRESENT ILLNESS: This is a very pleasant 73-year-old female who returns to the pain clinic today with an interpreter for the deaf, Vicki Bean, to discuss her ongoing right jaw pain as a result of her trigeminal neuralgia. The patient does report that she is having increasing pain on the right side rating at pain score 10/10. It is a sharp stabbing pain. She would like an increase of her hydrocodone back to her previous dose. She feels that that dose was more beneficial in controlling her pain. It has slowly been increasing over the last month. It is a sharp stabbing pain in her right jaw. 1. The patient and interpreter for the deaf also report that the patient will be going to [place] for 10 days later this month and are worried about enough medications or a vacation fill that she may need prior to this trip. They are here to discuss that as well. 2. The patient denies any problems with constipation since she has been taking lactulose on a daily basis. She finds this very beneficial in helping her avoid any constipation issues. 3. The patient is cheerful and happy today. She is reporting that she has now been attending a [employer]. She is finding this congregational organization a way to keep her active and associate with people instead of staying at home. She feels like she is less depressed since she started attending this hinduism. ALLERGIES: TAPE AND CONTRAST DYE. CURRENT LIST OF MEDICATIONS: Lactulose, lisinopril/hydrochlorothiazide, methadone and hydrocodone. PQRS: 1. She denies any problems with osteoarthritis or rheumatoid arthritis. 2. Height is 5 feet, weight is 151. BMI is 29. 3. Vital signs, 146/78, pulse is 81, respirations 16, oxygen sat is 97. 4. Pain score is 10/10. 5. Denies dizziness, does not need help walking or standing, has not fallen in the last [address] [address] PAIN MANAGEMENT CONSULTATION Name: FLACO HARRISON [id number] Admission: 03/11/19 Attend Phys: Vivi Givens Discharge: Date of : 45 Report #: [id number] 6. The patient is not on any blood thinners, but does take medicine for hypertension. 7. Opioid therapy is greater than 6 weeks; therefore, an opioid signed contract is on the chart. Risk assessment tool is low. Functional assessment is 51/70. 8. Recreational drug use, she denies. She is not a smoker and does not drink alcohol. According to the prescription monitoring system, the patient is due to fill her medications today. She last filled those in early February. According to the CDC guidelines, her morphine mEq per day is 195, well above their guidelines, but she is well controlled on her methadone dose for many years. PHYSICAL EXAMINATION: GENERAL: This is a 73-year-old upbeat female. Today, she is alert and orientated. HEENT: Normocephalic, atraumatic. Extraocular eye muscles are intact. Pain is along her right jawline. There is no allodynia noted on the right side of her face, though it is tender in her gum today and has slight swelling noted along her right face as well today. ASSESSMENT: 1. Trigeminal neuralgia. 2. Depression. 3. Opioid-induced constipation, managed with lactulose. 4. Management of high-risk medications under terms of written opioid agreement. We reviewed the fact that opiate medications are being used to provide analgesia adequate to support activities of daily living, not attempting to achieve a specific pain score on the 0-10 Visual Analog Scale. The current opiate medications are providing sufficient analgesia to allow the patient to participate in activities of daily living. The patient is not exhibiting any aberrant behavior suggestive of drug diversion. The patient is not having any adverse reactions to medications. The patient is not suffering from daytime somnolence or mental acuity changes. The patient is managing opiate-induced constipation with appropriate vfit-xab-lbugaxu agents and dietary considerations. The patient was counseled on concern for caution with operating a motor vehicle while using opiate medications. PLAN: 1. We discussed treatment options with the patient today. The patient reports that she is having increased pain, is wondering about going back on her hydrocodone 10/325 that she was previously on. We had decreased her due to problems with constipation. This has been resolved with her lactulose that she takes on a daily basis and finds that that is very beneficial in controlling her constipation. Her pain has slowly increased since we did decrease her opioid use. I discussed with Dr. Dejon Pierson and he agreed that we are able to [facility] [address] [place] [address] PAIN MANAGEMENT CONSULTATION Name: FLACO HARRISON Room #: REG [facility]SON Perry#: [id number] Admission: 03/11/19 Attend Phys: Vivi Givens Discharge: Date of : 45 Report #: [id number] return to hydrocodone 10/325, #90, for the month. The patient encouraged to take the lowest most effective dose. If she is not needing 3 pills a day, we encouraged her to take less. Scripts sent electronically to the [facility]. 2. Methadone will be continued, 10-mg tablets, 2 tablets 3 times a day, quantity 180. These will be sent for 4-week supply to the pharmacy. She does have 1 script from her previous visit, still there, but they will fill today. 3. We did determine that the patient is flying out on 03/25/2019, to return 10 days later on 04/04/2019, to [facility]. The patient will have enough medications, if she fills them today, to last through this holiday. She will not need any early refills. This was determined with the help of the interpreter for the deaf who was here present today. 4. The patient instructed to call for an appointment in 2 months when she fills her second prescription. The patient verbalizes understanding. The patient is seen today in collaboration with Dr. Dejon Pierson. <ELECTRONICALLY SIGNED> By: Vivi Givens 03/12/19 1532 [id number] Vivi Givens /nt
== END ==
LOC: PAIN 12:45
DX: G50.0 Trigeminal neuralgia (principal); F32.9 Major depressive disorder, single episode, unspecified; K59.03 Drug induced constipation; T40.2X5A Adverse effect of other opioids, initial encounter; Z91.048 Other nonmedicinal substance allergy status; Z91.041 Radiographic dye allergy status; Z79.899 Other long term (current) drug therapy; Y92.89 Other specified places as the place of occurrence of the external cause

== ENCOUNTER → 2019-05-08 | Outpatient (CLI) | payer OTHER ==
[2019-05-08 12:44] VITALS: BP 136/81
--- NOTE | 2019-05-08 12:46 | NUR ---
Pain Clinic Assessment: 1. History of Osteoarthritis: Not Applicable History of Rheumatoid Arthritis: NO 2. Height: ft. in. cm. Weight: 149.6 lb. oz. 67.858 kg. Patient's BMI: 3. Vital Signs: BP: 136/81 Pulse: 71 Resp: 16 Temp: 02 Sat: 98 ECG Mon: 4. Pain Intensity: 7 5. Fall Risk: Dizziness: N Needs help standing or walking: N Fallen in the last 3 months: N Fall risk comments: 6. Patient on Blood Thinner: None 7. History of Hypertension: Y 8. Opioid Therapy greater than 6 weeks: Y Opiate Contract Signed: 04/07/16 9. Risk Assessment Tool Provided: LOW RISK 0 10. Functional Assessment Tool: 11. Recreational Drug Use: Never Drug Type: Tobacco Use: Never Smoker Tobacco Type: Amount or Packs/day: How Many Years: Alcohol Use: No Frequency: Quant:
--- NOTE | 2019-05-09 09:02 | HPC ---
[facility] [address] [address] PAIN MANAGEMENT CONSULTATION Name: FLACO HARRISON Room #: REG Gabby M..#: [id number] Admission: 05/08/19 Attend Phys: Vivi Givens Discharge: Date of : 45 Report #: [id number] THIS REPORT FOR: cc: Ole Mallory MD, Christopher B. MD Hocker,Vivi ARROYO ~ DATE OF SERVICE: 05/08/2019 CHIEF COMPLAINT: Trigeminal neuralgia. HISTORY OF PRESENT ILLNESS: This is a 73-year-old female who was here present with an freight broker agent today to discuss her pain medications and obtain refills. Per the patient's report, her pain score is a 7/10 today, which is currently lower than her usual pain score, but she did have days where she suffered increased pain since we have last seen her. She also has recently returned from [place] last home on 04/04/2019. We did discuss coronavirus, she was home before the outbreak in that country. The patient is reporting her pain score in her right jaw and her gums is very sensitive to weather changes and talking as well as eating. Her pain is a sharp stabbing pain per her report. The medications are beneficial, but she is wondering if there are any new treatment options that we are aware of that would help with her ongoing pain besides medication. The patient has had numerous therapies as well as gamma knife treatments prior to coming to our clinic for help with her ongoing pain. ALLERGIES: TAPE AND CONTRAST DYE. CURRENT LIST OF MEDICATIONS: Methadone 20 mg t.i.d., hydrocodone 10/325 t.i.d., lactulose daily and lisinopril/hydrochlorothiazide daily. PQRS: 1. She denies any osteoarthritis or rheumatoid arthritis. 2. Height is 5 feet, weight is 149, BMI is 29. 3. Vital signs 136/81, pulse is 71, respirations 16, oxygen sat is 98. 4. Pain score is 7/10. 5. Denies dizziness, does not need help walking or standing, has not fallen in the last 3 months. The patient is not on any blood thinners, but does have medication for hypertension. Opioid therapy is greater than 6 weeks; therefore, an opioid signed contract is on the chart. Risk assessment is low. Functional assessment is 51/70. 6. Recreational drug use, she denies. She is not a smoker and does not drink alcohol. According to the prescription monitoring system, the patient is filling appropriately for her medications. She is on a very high morphine mEq of 210, but she has been stable on this medication for quite some time and doing quite [address] [address] PAIN MANAGEMENT CONSULTATION Name: FLACO HARRISON Room #: REG ERICKSON Edwards.Fani.#: [id number] Admission: 05/08/19 Attend Phys: Vivi Givens Discharge: Date of : 45 Report #: [id number] well and keeping active in her community as well as now started exercising on a regular basis. There is a recent drug screen on the chart as well. PHYSICAL EXAMINATION: GENERAL: This is a 73-year-old female who appears her stated age, placing her current pain score at 7/10 today. She is alert and orientated. HEENT: Normocephalic, atraumatic. Extraocular eye muscles are intact. She has tenderness along her right jawline. There was no allodynia noted today, though it is tender to the touch and tender along her gumline. ASSESSMENT: 1. Trigeminal neuralgia. 2. Depression. 3. Opioid-induced constipation, managed with lactulose. Management of high risk medications under terms of written opioid agreement. We reviewed the fact that opiate medications are being used to provide analgesia adequate to support activities of daily living, not attempting to achieve a specific pain score on the 0-10 Visual Analog Scale. The current opiate medications are providing sufficient analgesia to allow the patient to participate in activities of daily living. The patient is not exhibiting any aberrant behavior suggestive of drug diversion. The patient is not having any adverse reactions to medications. The patient is not suffering from daytime somnolence or mental acuity changes. The patient is managing opiate-induced constipation with appropriate pgag-cqb-gtxnjfb agents and dietary considerations. The patient was counseled on concern for caution with operating a motor vehicle while using opiate medications. A physical exam was performed and the patient's functional status was evaluated. All patients with back pain were advised against the bed rest greater than 4 days and were advised to return to normal activities. Pain score assessment was noted and the treatment plan was reviewed with the patient. All current medications, both prescribed and OTC were reviewed and reconciled on the electronic medical record. Tobacco screening was accomplished and smoking cessation was advised when indicated. BMI was noted and diet/exercise modification was recommended for all patients following outside normal parameters. I reviewed with the patient today their responsibilities to safeguard prescription medications, reviewed their responsibility to utilize medications only as prescribed by the physician. They are to seek and receive pain medications only from 1 physician group ([facility]). They are to use 1 pharmacy and keep the clinic informed if they change pharmacies. Their responsibilities include making followup visits in a timely fashion and to avoid abrupt discontinuation of medication usage. Their responsibilities further include bringing their medications (bottles from the pharmacy with residual [facility] [address] [place] [address] PAIN MANAGEMENT CONSULTATION Name: FLACO HARRISON [facility] [id number] Admission: 05/08/19 Attend Phys: Vivi Givens Discharge: Date of : 45 Report #: [id number] pills) to the visit for possible confirmation of pill counts and the patient understands it is their responsibility to submit to random drug screens to ensure both that the medications prescribed are present, and that no other controlled substances are present. All prescriptions provided today were generated electronically. PLAN: 1. We discussed treatment options with the patient today. The patient is wondering along with her freight broker agent if there are other options that she may seek out for treatment. The patient has had numerous therapies in the past. I will speak with Dr. Dejon Pierson who is in collaborate with him if there are any new additional treatments that he has heard of and we will get back to her before her next appointment or at her next appointment. The patient has been stable on this medication for quite some time and it has been helpful. She is just curious if there are new treatment options she should be seeking out. 2. The patient finds the lactulose very beneficial in controlling her opioid-induced constipation. 3. We will refill her medications today of methadone 10 mg tablets 3 times a day, quantity 180 for today and 4-week release as well as her hydrocodone 10/325, #90. 4. Dr. Dejon Pierson collaborated care with this patient today. The patient will return in 2 months. <ELECTRONICALLY SIGNED> By: Vivi Givens 05/09/19901 1319 [id number] Vivi degroot
== END ==
LOC: PAIN 06:54
DX: G50.0 Trigeminal neuralgia (principal); F32.9 Major depressive disorder, single episode, unspecified; K59.03 Drug induced constipation; T40.2X5A Adverse effect of other opioids, initial encounter; Z79.899 Other long term (current) drug therapy; Z91.041 Radiographic dye allergy status; Z91.048 Other nonmedicinal substance allergy status; Y92.89 Other specified places as the place of occurrence of the external cause

== ENCOUNTER → 2019-07-01 | Outpatient (CLI) | payer OTHER ==
[~2019-07-01] VITALS: Ht 152.4 cm; Wt 68.8 kg
[2019-07-01 13:23] VITALS: BP 151/76
--- NOTE | 2019-07-01 13:35 | NUR ---
Pain Clinic Assessment: 1. History of Osteoarthritis: Not Applicable History of Rheumatoid Arthritis: NO 2. Height: 5 ft. 0 in. 152.4 cm. Weight: 151.6 lb. oz. 68.765 kg. Patient's BMI: 29.6 3. Vital Signs: BP: 151/76 Pulse: 71 Resp: 16 Temp: 02 Sat: 97 ECG Mon: 4. Pain Intensity: 9 5. Fall Risk: Dizziness: N Needs help standing or walking: N Fallen in the last 3 months: N Fall risk comments: 6. Patient on Blood Thinner: None 7. History of Hypertension: Y 8. Opioid Therapy greater than 6 weeks: Y Opiate Contract Signed: 04/07/16 9. Risk Assessment Tool Provided: LOW RISK 0 10. Functional Assessment Tool: 11. Recreational Drug Use: Never Drug Type: Tobacco Use: Never Smoker Tobacco Type: Amount or Packs/day: How Many Years: Alcohol Use: No Frequency: Quant:
--- NOTE | 2019-07-03 12:51 | HPC ---
[facility] [place] [address] PAIN MANAGEMENT CONSULTATION Name: FLACO HARRISON Room #: REG ERICKSON M.Fani.#: [id number] Admission: 07/01/19 Attend Phys: Vivi Givens Discharge: Date of : 45 Report #: [id number] THIS REPORT FOR: cc: Ole Mallory MD, Christopher B. MD Hocker, Amanda CNS ~ CC: Dejon Pierson MD DATE OF SERVICE: 07/01/2019 CHIEF COMPLAINT: Trigeminal neuralgia. HISTORY OF PRESENT ILLNESS: This is a 73-year-old female who returns to the pain clinic today complaining of increase in pain with her department head [employer] who was here present. Patient states that recently her average has been a 9/10. Some days as much as 10/10 in her right gumline. She states that the weather has made her pain increase. She is here today slightly early to discuss options to help decrease her pain. The patient is reporting it is on her right lower jaw and gumline. It is a sharp stabbing pain that is constant. Her medications do dull her pain slightly, but not as well as they had in the past. She feels they are losing efficacy and was wondering if she can increase them. She denies any problem with constipation. She is currently not taking her lactulose, but does have it is still available at home. She does not complain of any depression, feels that she has been able to see people even despite the COVID virus. ALLERGIES: TAPE, CONTRAST DYE. CURRENT LIST OF MEDICATIONS: Methadone 20 mg t.i.d., lactulose, hydrocodone 10/325 t.i.d. p.r.n., lisinopril/hydrochlorothiazide. PQRS: 1. The patient denies any osteo or rheumatoid arthritis. 2. Height is 5 feet, weight is 151. BMI is 29. 3. Vital signs, 151/76, pulse is 71, respirations 16, oxygen sat is 97%. 4. Pain score is 9/10. 5. Denies dizziness, does not need help walking or standing, has not fallen in the last 3 months. 6. The patient is not on any blood thinners, but does take medicine for hypertension. 7. Opioid therapy is greater than 6 weeks; therefore, an opioid signed contract is on the chart. Risk assessment tool is low. Functional assessment is 51/70. 8. Recreational drug use, she denies. She is not a smoker and does not drink alcohol. [facility] [address] [place] [address] PAIN MANAGEMENT CONSULTATION Name: FLACO HARRISON Room #: REG [facility]#: [id number] Admission: 07/01/19 Attend Phys: Vivi Givens Discharge: Date of : 45 Report #: [id number] According to the prescription monitoring system, the patient is filling appropriately for her medications. She is due to fill next week. Her morphine milliequivalent according to the CDC guidelines is quite high at 210. She has been stable on this meds for quite some time, though increased pain complaints today. There is a random drug screen on the chart as well. PHYSICAL EXAMINATION: GENERAL: This is alert and orientated 73-year-old female who does speak Maltese and some broken Burmese with an department head [employer] today, answering my questions, placing her current pain score at 9/10. HEENT: Normocephalic, atraumatic. Extraocular eye muscles are intact. She has tenderness along her right jawline, most specifically her gum is very tender with no allodynia noted. ASSESSMENT: 1. Trigeminal neuralgia. 2. Depression. 3. Opioid-induced constipation, though managed currently. 4. Management of high risk medications under terms of written opioid agreement. We reviewed the fact that opiate medications are being used to provide analgesia adequate to support activities of daily living, not attempting to achieve a specific pain score on the 0-10 Visual Analog Scale. The current opiate medications are providing sufficient analgesia to allow the patient to participate in activities of daily living. The patient is not exhibiting any aberrant behavior suggestive of drug diversion. The patient is not having any adverse reactions to medications. The patient is not suffering from daytime somnolence or mental acuity changes. The patient is managing opiate-induced constipation with appropriate gwbz-mng-admvtii agents and dietary considerations. The patient was counseled on concern for caution with operating a motor vehicle while using opiate medications. A physical exam was performed and the patient's functional status was evaluated. All patients with back pain were advised against the bed rest greater than 4 days and were advised to return to normal activities. Pain score assessment was noted and the treatment plan was reviewed with the patient. All current medications, both prescribed and OTC were reviewed and reconciled on the electronic medical record. Tobacco screening was accomplished and smoking cessation was advised when indicated. BMI was noted and diet/exercise modification was recommended for all patients following outside normal parameters. I reviewed with the patient today their responsibilities to safeguard prescription medications, reviewed their responsibility to utilize medications only as prescribed by the physician. They are to seek and receive pain [facility] [address] [place] [address] PAIN MANAGEMENT CONSULTATION Name: FLACO HARRISON Room #: REG ERICKSON Perry#: [id number] Admission: 07/01/19 Attend Phys: Vivi Givens Discharge: Date of : 45 Report #: [id number] medications only [facility]). They are to use 1 pharmacy and keep the clinic informed if they change pharmacies. Their responsibilities include making followup visits in a timely fashion and to avoid abrupt discontinuation of medication usage. Their responsibilities further include bringing their medications (bottles from the pharmacy with residual pills) to the visit for possible confirmation of pill counts and the patient understands it is their responsibility to submit to random drug screens to ensure both that the medications prescribed are present, and that no other controlled substances are present. All prescriptions provided today were generated electronically. PLAN: 1. We discussed treatment options with the patient today. The patient is complaining of increased pain. I explained to her that she is on a very high dose of methadone and hydrocodone currently. According to the CDC guidelines, her conversion is 210. I explained to her that occasionally we need to decrease medications for some of receptors to reset to see if this will help her pain. 2. Another option is adding adjunct therapy. The patient has tried numerous neuropathic medicines in the past such as Cymbalta, gabapentin, nortriptyline, oxcarbazepine. The most beneficial medication she experienced of those was nortriptyline. It did help with her sleep and decrease some of her pain. Upon speaking with Dr. Dejon Pierson, who did see the patient as well, we decided to try acupuncture as an option before we started any new medication. 3. We explained to the patient that we will not raise her medications, but if the acupuncture is not beneficial, we may need to decrease her methadone slightly. Scripts given today for methadone 10 mg tablets, 2 of them #180 for release today for an 8-week as well as her hydrocodone 10/325 t.i.d., #90, for today and 4-week release. 3. We have faxed over an order to [place] [facility], [facility]. We believe that she is closed right now due to the COVID virus, but is hopeful that she will open next week and therefore our patient may have an appointment. She has used acupuncture in the past in [place]. 4. The patient dismissed to home, again seen in collaboration with Dr. Dejon Pierson. <ELECTRONICALLY SIGNED> By: Vivi Givens 07/03/19 1251 1524 [id number] Vivi Givens /nt
== END ==
LOC: PAIN 11:08
DX: G50.0 Trigeminal neuralgia (principal); F32.9 Major depressive disorder, single episode, unspecified; F11.20 Opioid dependence, uncomplicated; Z88.1 Allergy status to other antibiotic agents; Z88.8 Allergy status to other drugs, medicaments and biological substances; Z79.899 Other long term (current) drug therapy

== ENCOUNTER 2019-07-15 15:43 | Emergency (ER) | payer OTHER ==
[~2019-07-15] VITALS: Ht 157.5 cm; Wt 68.0 kg
[2019-07-15 17:19] LABS: ABSOLUTE NEUTROPHILS 4.6 thou/uL (1.4-8.2); BASOPHILS 0.7 % (0.0-2.0); EOSINOPHILS 0.7 % (0.0-3.0); HEMATOCRIT 40.5 % (37.0-47.0); HEMOGLOBIN 14.2 gm/dL (12.0-15.0); LYMPHOCYTES 28.7 % (24.0-44.0); MCH 32.7 pg (26.0-34.0); MCHC 34.9 g/dL (28.0-37.0); MCV 93.5 fL (80.0-100.0); PLATELET COUNT 273 thou/uL (150-400); POLYS 61.9 % (36.0-66.0); RBC 4.33 mil/uL (4.20-5.00); RDW 12.8 % (10.5-14.5); WBC 7.4 thou/uL (4.0-11.0)
[2019-07-15 17:26] LABS: CALCIUM 9.1 mg/dL (8.5-10.1); POTASSIUM 3.7 mmol/L (3.5-5.1)
[2019-07-15] MEDS ORDERED: COLACE100 MG PO (17:58)
[2019-07-15 19:06] VITALS: BP 159/76
== END 2019-07-15 19:10 | disposition home or self-care (01) ==
LOC: ER 15:43
PROVIDERS: Emergency Medicine Emergency Medical Services
DX: K59.00 Constipation, unspecified (principal); R11.0 Nausea; Z98.890 Other specified postprocedural states; Z79.899 Other long term (current) drug therapy; Z91.041 Radiographic dye allergy status; Z90.710 Acquired absence of both cervix and uterus

== ENCOUNTER → 2019-08-29 | Outpatient (CLI) | payer OTHER ==
[~2019-08-29] VITALS: Ht 152.4 cm; Wt 66.8 kg
[~2019-08-29] MED LIST changes: +BENADRYL25 MG PO; +CONSTULOSE10 GM/15 M PO
[2019-08-29 13:42] VITALS: BP 132/80
--- NOTE | 2019-08-29 14:07 | NUR ---
Pain Clinic Assessment: 1. History of Osteoarthritis: Not Applicable History of Rheumatoid Arthritis: NO 2. Height: 5 ft. 0 in. 152.4 cm. Weight: 147.2 lb. oz. 66.769 kg. Patient's BMI: 28.7 3. Vital Signs: BP: 132/80 Pulse: 71 Resp: 16 Temp: 02 Sat: 96 ECG Mon: 4. Pain Intensity: 8 5. Fall Risk: Dizziness: N Needs help standing or walking: N Fallen in the last 3 months: N Fall risk comments: 6. Patient on Blood Thinner: None 7. History of Hypertension: Y 8. Opioid Therapy greater than 6 weeks: Y Opiate Contract Signed: 04/07/16 9. Risk Assessment Tool Provided: LOW RISK 0 10. Functional Assessment Tool: 11. Recreational Drug Use: Never Drug Type: Tobacco Use: Never Smoker Tobacco Type: Amount or Packs/day: How Many Years: Alcohol Use: No Frequency: Quant:
--- NOTE | 2019-09-02 14:14 | HPC ---
[facility] [address] [place] [address] PAIN MANAGEMENT CONSULTATION Name: FLACO HARRISON Room #: REG [facility].#: [id number] Admission: 08/29/19 Attend Phys: Dejon Pierson MD Discharge: Date of : 45 Report #: [id number] THIS REPORT FOR: cc: Ole Mallory MD, Christopher B. MD Hocker, Amanda ZIPPER SETTER CHAINSTITCH ~ CC: Dejon Pierson MD DATE OF SERVICE: 08/29/2019 CHIEF COMPLAINT: Trigeminal neuralgia and constipation. HISTORY OF PRESENT ILLNESS: This is a 74-year-old female who is well known to the pain clinic who is returning today to discuss her pain medications. We have an foreclosure field inspector who is here present with us, She is translating for us today. The patient reports her pain score is an 8/10 today along her right lower jaw and gums as a result of her trigeminal neuralgia. She states that it is a sharp, stabbing pain, occasionally shooting, worse with being tired or having cold foods. It is worse in the morning and at bedtime. She feels that the medication is beneficial. She has recently started acupuncture at [facility]. We did refer her to [facility]. She states she is going there again today for her second treatment. So far, she believes that has been beneficial as well. The patient complains of constipation. She had not been taking her lactulose on a daily basis, just taking it sporadically. It sounds per the report she did go to the Emergency Room and required Relistor. They did give her a prescription for Colace. We have encouraged her to take her lactulose more frequently to keep her out of the Emergency Rooms for opioid-induced constipation. ALLERGIES: TAPE and CONTRAST DYE. CURRENT LIST OF MEDICATIONS: Methadone 20 mg 3 times a day, hydrocodone 10/325 up to 3 times a day, Colace, lactulose, and lisinopril/hydrochlorothiazide. PQRS: 1. She denies any osteo or rheumatoid arthritis. 2. Height is 5 feet, weight is 147, BMI is 28, which is down 4 pounds since our last visit. 3. Vital signs 132/80, pulse is 71, respirations 16, oxygen sat is 96%. 4. Pain score is 8/10. 5. Denies dizziness, does not need help walking or standing, has not fallen in the last 3 months. 6. The patient is not on any blood thinners, but does take medicine for hypertension. 7. Opioid therapy is greater than 6 weeks; therefore, [place] [address] PAIN MANAGEMENT CONSULTATION Name: FLACO HARRISON Room #: REG CLI Vicky#: [id number] Admission: 08/29/19 Attend Phys: Dejon Pierson MD Discharge: Date of : 45 Report #: [id number] is on the chart. Risk assessment is low. Functional assessment is 51/70. 8. Recreational drug use, she denies. She is not a smoker and does not drink alcohol. According to the prescription monitoring system, the patient has been filling appropriately. She is due to fill her medications today. Her morphine milliequivalent is quite high at 210 that she has been stable on this medicine for quite some time. She is a legacy patient of Dr. Dejon Pierson. PHYSICAL EXAMINATION: GENERAL: This is a well-developed, well-nourished, well-hydrated 74-year-old female who appears her stated age, placing her current pain score at 8/10. She has a gis professor here present. HEENT: Normocephalic, atraumatic. Extraocular eye muscles are intact. She has tenderness along her right jawline and gums that are tender with no allodynia noted. She does have acupressure points in her ear on her right side for pain control. ASSESSMENT: 1. Trigeminal neuralgia. 2. Depression. 3. Opioid-induced constipation with recent ER visit. 4. Management of high risk medications under terms of written opioid agreement. We reviewed the fact that opiate medications are being used to provide analgesia adequate to support activities of daily living, not attempting to achieve a specific pain score on the 0-10 Visual Analog Scale. The current opiate medications are providing sufficient analgesia to allow the patient to participate in activities of daily living. The patient is not exhibiting any aberrant behavior suggestive of drug diversion. The patient is not having any adverse reactions to medications. The patient is not suffering from daytime somnolence or mental acuity changes. The patient is managing opiate-induced constipation with appropriate qyoz-rwv-zaduqqw agents and dietary considerations. The patient was counseled on concern for caution with operating a motor vehicle while using opiate medications. PLAN: 1. We discussed treatment options with the patient today. We are trying to keep the patient out of the Emergency Room by encouraging her to take her lactulose on a daily basis. We have tried numerous medications for her opioid-induced constipation and found that lactulose was the most beneficial and covered by her insurance company. I encouraged the patient to take it on an every other day basis. If she becomes too constipated then take it on a daily basis. Evidently, the patient had been taking it very sporadic. The patient and gis professor are agreeable with this regimen. 2. We will refill her hydrocodone 10/325, #90, for today and 4-week release as [address] [place] [address] PAIN MANAGEMENT CONSULTATION Name: FLACO HARRISON Room #: REG [facility] Perry#: [id number] Admission: 08/29/19 Attend Phys: Dejon Pierson MD Discharge: Date of : 45 Report #: [id number] well as her methadone 20 mg 3 times a day, #180 for today and 4-week release. 3. I encouraged the patient to continue her acupuncture through [facility]. She has had 2 treatments so far and found it has been beneficial. 4. The patient is seen in collaboration with Dr. Dejon Pierson who did see the patient as well. <ELECTRONICALLY SIGNED> By: Vivi Givens 09/02/19 1414 [id number] Vivi Givens /nt
== END ==
LOC: PAIN 06-11 14:19
PROVIDERS: ATTEND Anesthesiology Pain Medicine
DX: G50.0 Trigeminal neuralgia (principal); K59.03 Drug induced constipation; F11.90 Opioid use, unspecified, uncomplicated; F32.9 Major depressive disorder, single episode, unspecified; Z77.9 Other contact with and (suspected) exposures hazardous to health; Z91.018 Allergy to other foods

== ENCOUNTER 2019-09-23 21:32 | Emergency (ER) | payer OTHER ==
[~2019-09-23] VITALS: Ht 152.4 cm; Wt 65.8 kg
[2019-09-23] MEDS ORDERED: HYDROCORTISONE30 GM TOP (21:56)
[2019-09-23] MEDS ORDERED: PREDNISONE 20 M20 MG PO (21:56)
[2019-09-23 22:45] VITALS: BP 140/83
== END 2019-09-23 22:52 | disposition home or self-care (01) ==
LOC: ER 21:32
DX: L23.7 Allergic contact dermatitis due to plants, except food (principal); Z90.710 Acquired absence of both cervix and uterus; Z79.899 Other long term (current) drug therapy; Z91.048 Other nonmedicinal substance allergy status

== ENCOUNTER → 2019-09-26 | Outpatient (CLI) | payer OTHER ==
[~2019-09-26] VITALS: Ht 152.4 cm; Wt 67.0 kg
[~2019-09-26] MED LIST changes: +HYDROCORTISONE30 GM TOP; +PREDNISONE 20 M20 MG PO
[2019-09-26 12:47] VITALS: BP 133/81
--- NOTE | 2019-09-26 12:53 | NUR ---
Pain Clinic Assessment: 1. History of Osteoarthritis: Not Applicable History of Rheumatoid Arthritis: NO 2. Height: 5 ft. 0 in. 152.4 cm. Weight: 147.6 lb. oz. 66.951 kg. Patient's BMI: 28.8 3. Vital Signs: BP: 133/81 Pulse: 90 Resp: 18 Temp: 02 Sat: 96 ECG Mon: 4. Pain Intensity: 8 5. Fall Risk: Dizziness: N Needs help standing or walking: N Fallen in the last 3 months: N Fall risk comments: 6. Patient on Blood Thinner: None 7. History of Hypertension: Y 8. Opioid Therapy greater than 6 weeks: Y Opiate Contract Signed: 04/07/16 9. Risk Assessment Tool Provided: LOW RISK 0 10. Functional Assessment Tool: 11. Recreational Drug Use: Never Drug Type: Tobacco Use: Never Smoker Tobacco Type: Amount or Packs/day: How Many Years: Alcohol Use: No Frequency: Quant:
--- NOTE | 2019-09-27 07:54 | HPC ---
[facility] [address] [place] [address] PAIN MANAGEMENT CONSULTATION Name: FLACO HARRISON Room #: REG [facility] M.R.#: [id number] Admission: 09/26/19 Attend Phys: Vivi Givens Discharge: Date of : 45 Report #: [id number] THIS REPORT FOR: cc: Ole Mallory MD, Christopher B. MD Hocker, Amanda CNS ~ CC: Dejon Pierson MD DATE OF SERVICE: 09/26/2019 CHIEF COMPLAINT: Trigeminal neuralgia. HISTORY OF PRESENT ILLNESS: This is a very pleasant 74-year-old female who is here with an certified court interpreter today to discuss her opioid medications. She feels that they are working quite well, taking her methadone 3 times a day as well as supplementing her pain with hydrocodone. Despite her high pain score of 8/10, she assures me she is doing quite well. Her pain is located in her right lower jaw along her gumline anteriorly. She reports that occasionally it is sharp, stabbing pain when she is cold or too tired. She feels that the medications are very beneficial. She does report that her constipation has resolved. Taking her lactulose every other day has been beneficial. The patient has a report that she has recently been to the emergency room due to poison Chantel. She was given a steroid Dosepak and some topical steroid cream that she has been using. Today, she does show me her rash that is present between her breasts on her chest from the poison chantel. ALLERGIES: TAPE AND CONTRAST DYE. CURRENT LIST OF MEDICATIONS: Hydrocortisone cream, prednisone, methadone 20 mg t.i.d., hydrocodone 10/325 p.r.n., Colace, lisinopril/hydrochlorothiazide, and lactulose. PQRS: 1. She denies history of osteoarthritis or rheumatoid arthritis. 2. Height is 5 feet, weight is 147, BMI is 28. 3. Vital signs 133/81, pulse is 90, respirations 18, oxygen sat is 96%. 4. Pain score is 8/10. 5. Denies dizziness, does not need help walking or standing, has not fallen in the last 3 months. 6. The patient is not on any blood thinners, but does take medicine for hypertension. Her opioid therapy is greater than 6 weeks; therefore, an opioid signed contract is on the chart. Risk assessment is low. Functional assessment is 51/70 7. Recreational drug use, she denies. She is not a smoker and does not drink alcohol. [facility] [address] [place] [address] PAIN MANAGEMENT CONSULTATION Name: FLACO HARRISON Room #: REG CLI Vicky#: [id number] Admission: 09/26/19 Attend Phys: Vivi Givens Discharge: Date of : 45 Report #: [id number] According to the prescription monitoring system, the patient is filling appropriately. She is due to fill her medications this week. Her morphine mEq is quite high at 210, though she has been stable on this dose for quite some time. We will collect a random drug screen on this patient today. PHYSICAL EXAMINATION: GENERAL: This is a well-developed, well-nourished, well-hydrated 74-year-old who appears her stated age, placing her current pain score at 8/10. HEENT: Normocephalic, atraumatic. Mucous membranes are moist. Does have tenderness along her gumline on the right side that is tender with no allodynia noted. CHEST: She has an erythematous rash to her chest and right arm with no drainage noted. ASSESSMENT: 1. Trigeminal neuralgia. 2. Depression. 3. Opioid-induced constipation, treated with lactulose. 4. Recent poison chantel exposure, on steroids. 5. Management of high risk medications under terms of written opioid agreement. We reviewed the fact that opiate medications are being used to provide analgesia adequate to support activities of daily living, not attempting to achieve a specific pain score on the 0-10 Visual Analog Scale. The current opiate medications are providing sufficient analgesia to allow the patient to participate in activities of daily living. The patient is not exhibiting any aberrant behavior suggestive of drug diversion. The patient is not having any adverse reactions to medications. The patient is not suffering from daytime somnolence or mental acuity changes. The patient is managing opiate-induced constipation with appropriate ukkq-ftz-jflkejg agents and dietary considerations. The patient was counseled on concern for caution with operating a motor vehicle while using opiate medications. A physical exam was performed and the patient's functional status was evaluated. All patients with back pain were advised against the bed rest greater than 4 days and were advised to return to normal activities. Pain score assessment was noted and the treatment plan was reviewed with the patient. All current medications, both prescribed and OTC were reviewed and reconciled on the electronic medical record. Tobacco screening was accomplished and smoking cessation was advised when indicated. BMI was noted and diet/exercise modification was recommended for all patients following outside normal parameters. I reviewed with the patient today their responsibilities to safeguard prescription medications, reviewed their responsibility to utilize medications [facility] [address] [place] [address] PAIN MANAGEMENT CONSULTATION Name: FLACO HARRISON Room #: REG [facility] Perry#: [id number] Admission: 09/26/19 Attend Phys: Vivi Givens Discharge: Date of : 45 Report #: [id number] only as prescribed by the physician. They are to seek and receive pain medications only from 1 physician group ( [facility]). They are to use 1 pharmacy and keep the clinic informed if they change pharmacies. Their responsibilities include making followup visits in a timely fashion and to avoid abrupt discontinuation of medication usage. Their responsibilities further include bringing their medications (bottles from the pharmacy with residual pills) to the visit for possible confirmation of pill counts and the patient understands it is their responsibility to submit to random drug screens to ensure both that the medications prescribed are present, and that no other controlled substances are present. All prescriptions provided today were generated electronically. PLAN: 1. We discussed treatment options with the patient today. The patient's current regimen is beneficial for the patient right now, able to be as active as she would like and engage in activities of daily living. She is not working out at the gym presently, but is trying to be active in her yard and go on walks that is where she was exposed to poison chantel, that she has recently being treated for. So Dr. Pierson will send her methadone and her hydrocodone to the [facility] pharmacy for renewal for 2 months. 2. We will collect a random drug screen on this patient today since it had been greater than a year since our last specimen. The patient does report she took her last doses today. She has been here with an certified court interpreter that is translating for us. 3. The patient is seen in collaboration with Dr. Dejon Pierson. <ELECTRONICALLY SIGNED> By: Vivi Givens 09/27/19 0754 1324 Ros degroot
== END ==
LOC: PAIN 07:09
PROVIDERS: ATTEND Clinical Nurse Specialist Adult Health
DX: G50.0 Trigeminal neuralgia (principal); F31.9 Bipolar disorder, unspecified; F11.20 Opioid dependence, uncomplicated; K59.00 Constipation, unspecified; Z91.89 Other specified personal risk factors, not elsewhere classified; Z88.8 Allergy status to other drugs, medicaments and biological substances; Z79.899 Other long term (current) drug therapy

== ENCOUNTER → 2019-10-24 | Outpatient (CLI) | payer OTHER ==
[~2019-10-24] VITALS: Ht 152.4 cm; Wt 67.1 kg
[2019-10-24 12:35] VITALS: BP 114/77
--- NOTE | 2019-10-24 12:56 | NUR ---
Pain Clinic Assessment: 1. History of Osteoarthritis: Not Applicable History of Rheumatoid Arthritis: NO 2. Height: 5 ft. 0 in. 152.4 cm. Weight: 148.0 lb. oz. 67.132 kg. Patient's BMI: 28.9 3. Vital Signs: BP: 114/77 Pulse: 65 Resp: 16 Temp: 02 Sat: 98 ECG Mon: 4. Pain Intensity: 7 5. Fall Risk: Dizziness: N Needs help standing or walking: N Fallen in the last 3 months: N Fall risk comments: 6. Patient on Blood Thinner: None 7. History of Hypertension: Y 8. Opioid Therapy greater than 6 weeks: Y Opiate Contract Signed: 04/07/16 9. Risk Assessment Tool Provided: LOW RISK 0 10. Functional Assessment Tool: 11. Recreational Drug Use: Never Drug Type: Tobacco Use: Never Smoker Tobacco Type: Amount or Packs/day: How Many Years: Alcohol Use: No Frequency: Quant:
--- NOTE | 2019-10-24 14:25 | HPC ---
[facility] [address] [address] PAIN MANAGEMENT CONSULTATION Name: FLACO HARRISON Room #: REG [facility] M..#: [id number] Admission: 10/24/19 Attend Phys: Vivi Givens Discharge: Date of : 45 Report #: [id number] THIS REPORT FOR: cc: Ole Mallory MD, Christopher B. MD Hocker,Vivi ARROYO ~ CC: Dejon Pierson MD DATE OF SERVICE: 10/24/2019 CHIEF COMPLAINT: Trigeminal neuralgia. HISTORY OF PRESENT ILLNESS: This is a very pleasant 74-year-old female who the nurse and I are speaking with to the patient at the same time via desktop manager on the telephone. The patient is answering all of her questions appropriately via the desktop manager. She states that her pain is a 7/10 today. She feels that she is doing quite well on her current regimen of methadone and hydrocodone. She does have increased pain at times when weather changes or being tired. She feels though that the medications are beneficial. She has her constipation under control with lactulose that we prescribe for her. She reports she is not needing that medication today. She continues to be active, tries to work out at the gym and swim as well as walking. At times that she does get depressed, does not feel like she needs to be on antidepressant at this time. Today, she is requesting refills of her methadone and hydrocodone. ALLERGIES: TAPE and CONTRAST DYE. CURRENT LIST OF MEDICATIONS: Methadone 20 mg t.i.d., hydrocodone 10/325 t.i.d., lactulose, lisinopril/hydrochlorothiazide. PQRS: 1. She denies history of osteoarthritis or rheumatoid arthritis. 2. Height is 5 feet, weight is 148, BMI is 28. Vital signs 114/77, pulse is 65, respirations 16, oxygen sat is 98%. Pain score is 7/10. 3. Fall risk. The patient denies dizziness, does not need help walking or standing, has not fallen in the last 3 months. The patient is not on any blood thinners, but does take medicine for hypertension. Opioid therapy is greater than 6 weeks; therefore, an opioid signed contract is on the chart. Risk assessment is low. Functional assessment is 49/70. 4. Recreational drug use, she denies. She is not a smoker and does not drink alcohol. According to the prescription monitoring system, the patient is filling appropriately in a timely fashion. Her PDMP states her morphine milliequivalent is 210, which is quite high that she is managed on her methadone quite well and the conversion factor is quite high on this medication. [address] [address] PAIN MANAGEMENT CONSULTATION Name: FLACO HARRISON Room #: REG [facility] Perry#: [id number] Admission: 10/24/19 Attend Phys: Vivi Givens Discharge: Date of : 45 Report #: [id number] PHYSICAL EXAMINATION: GENERAL: This is a well-developed, well-nourished, well-hydrated 74-year-old female who appears her stated age, placing her current pain score at 7/10. HEENT: Normocephalic, atraumatic. Mucous membranes are moist. She is wearing a mask today, which causes increased tenderness along her right jaw that is tender with no allodynia noted. Pain is along the anterior gumline. ASSESSMENT: 1. Trigeminal neuralgia. 2. Depression. 3. Opioid-induced constipation, treated with lactulose. 4. Management of high risk medications under written opioid agreement. We reviewed the fact that opiate medications are being used to provide analgesia adequate to support activities of daily living, not attempting to achieve a specific pain score on the 0-10 Visual Analog Scale. The current opiate medications are providing sufficient analgesia to allow the patient to participate in activities of daily living. The patient is not exhibiting any aberrant behavior suggestive of drug diversion. The patient is not having any adverse reactions to medications. The patient is not suffering from daytime somnolence or mental acuity changes. The patient is managing opiate-induced constipation with appropriate mxuc-zxv-iiabjll agents and dietary considerations. The patient was counseled on concern for caution with operating a motor vehicle while using opiate medications. A physical exam was performed and the patient's functional status was evaluated. All patients with back pain were advised against the bed rest greater than 4 days and were advised to return to normal activities. Pain score assessment was noted and the treatment plan was reviewed with the patient. All current medications, both prescribed and OTC were reviewed and reconciled on the electronic medical record. Tobacco screening was accomplished and smoking cessation was advised when indicated. BMI was noted and diet/exercise modification was recommended for all patients following outside normal parameters. I reviewed with the patient today their responsibilities to safeguard prescription medications, reviewed their responsibility to utilize medications only as prescribed by the physician. They are to seek and receive pain medications only from 1 physician group ([facility]). They are to use 1 pharmacy and keep the clinic informed if they change pharmacies. Their responsibilities include making followup visits in a timely fashion and to avoid abrupt discontinuation of medication usage. Their responsibilities further include bringing their medications (bottles from the pharmacy with residual pills) to the visit for possible confirmation of pill counts and the patient understands it is their responsibility to submit to random drug screens to [address] [address] PAIN MANAGEMENT CONSULTATION Name: FLACO HARRISON Room #: REG [facility]..#: [id number] Admission: 10/24/19 Attend Phys: Vivi Givens Discharge: Date of : 45 Report #: [id number] ensure both that the medications prescribed are present, and that no other controlled substances are present. All prescriptions provided today were generated electronically. PLAN: 1. We discussed treatment options with the patient via the automatic operator phone today. She feels the medication is very beneficial and would like to continue. We will have Dr. Dejon Pierson send electronically hydrocodone 10/325, #90 as well as the methadone 10 mg tablets, she takes 2 three times a day, quantity is 180. These medications will be given for 2 months. 2. We did discuss her recent drug screen, which was appropriate for all of her medications that she does take. 3. We encouraged the patient to be as active as she is able, especially during this time of COVID. This will help her not stay at home and be less depressed when she is being busy. The patient verbalizes understanding. 4. The patient will return in 2 months. Seen today in collaboration with Dr. Pierson. <ELECTRONICALLY SIGNED> By: Vivi Givens 10/24/19 1425 1308 [id number] Vivi Givens /nt
== END ==
LOC: PAIN 06:52
PROVIDERS: ATTEND Clinical Nurse Specialist Adult Health
DX: G50.0 Trigeminal neuralgia (principal); K59.00 Constipation, unspecified; F11.20 Opioid dependence, uncomplicated; F32.9 Major depressive disorder, single episode, unspecified; Z88.8 Allergy status to other drugs, medicaments and biological substances; Z79.899 Other long term (current) drug therapy

== ENCOUNTER → 2020-01-06 | Outpatient (CLI) | payer OTHER | LOC: SJCVC 14:09 | PROVIDERS: ATTEND Internal Medicine Cardiovascular Disease | DX: R94.31 Abnormal electrocardiogram [ECG] [EKG] (principal); I10 Essential (primary) hypertension; R60.9 Edema, unspecified; R06.00 Dyspnea, unspecified; Z79.899 Other long term (current) drug therapy ==

== ENCOUNTER → 2020-01-13 | Outpatient (CLI) | payer OTHER ==
--- NOTE | 2020-01-13 12:07 | 2DMMODE ---
[facility] [place] [address] 2 D/M-MODE ECHOCARDIOGRAM Name: FLACO FLOYD Room #: REG [facility].#: [id number] Admission: 01/13/20 Attend Phys: Dusty Floyd MD Discharge: Date of : 45 Report #: [id number] THIS REPORT FOR: cc: Ole Mallory MD, Christopher B. MD Park, Jin S. MD ~ APPROVED REPORT Study performed: 01/13/2020 11:18:15 EXAM: Comprehensive 2D, Doppler, and color-flow Echocardiogram Patient Location: Out-Patient Room #: 2 Status: routine BSA: 1.63 HR: 69 bpm BP: 138/84 mmHg Rhythm: NSR Other Information Study Quality: Good Indications Hypertension/HDD 2D Dimensions RVDd: 34.93 mm IVSd: 11.03 (7-11mm) LVOT Diam: 21.25 (18-24mm) LVDd: 52.40 mm PWd: 11.23 (7-11mm) Ascending Ao: 28.15 (22-36mm) LVDs: 35.95 (25-40mm) Aortic Root: 27.08 mm IVC: 17.00 mm Volumes Left Atrial Volume (Systole) Single Plane 4CH: 35.34 mL Single Plane 2CH: 45.97 mL LA ESV Index: 27.00 mL/m2 Aortic Valve AoV Peak Rg.: 1.00 m/s AO Peak Gr.: 3.99 mmHg LVOT Max P.77 mmHg LVOT Max V: 0.83 m/s RODRÍGUEZ Vmax: 2.95 cm2 [facility] [address] [place] [address] 2 D/M-MODE ECHOCARDIOGRAM Name: FLACO FLOYD Room #: REG CL [facility]#: [id number] Admission: 01/13/20 Attend Phys: Dusty Floyd MD Discharge: Date of : 45 Report #: [id number] Mitral Valve E/A Ratio: 0.7 MV Decel. Time: 244.91 ms MV E Max Rg.: 0.63 m/s MV A Rg.: 0.93 m/s MV PHT: 71.02 ms IVRT: 124.57 ms Pulmonary Valve PV Peak Rg.: 1.00 m/s PV Peak Gr.: 4.03 mmHg Pulmonary Vein P Vein S: 0.74 m/s P Vein A: 0.32 m/s P Vein D: 0.34 m/s P Vein A Dur.: 96.9 msec P Vein S/D Ratio: 2.18 Tricuspid Valve TR Peak Rg.: 2.49 m/s TR Peak Gr.: 24.77 mmHg PA Pressure: 30.00 mmHg Left Ventricle The left ventricle is normal size. There is normal LV segmental wall motion. There is normal left ventricular wall thickness. Left ventricular systolic function is normal. The left ventricular ejection fraction is within the normal range. LVEF is 55-60%. Grade I - abnormal relaxation pattern. Right Ventricle The right ventricle is normal size. The right ventricular systolic function is normal. Atria The left atrium size is normal. The right atrium size is normal. Aortic Valve The aortic valve is normal in structure. Trace aortic regurgitation. There is no aortic valvular stenosis. Mitral Valve The mitral valve is normal in structure. Trace to mild mitral regurgitation. No evidence of mitral valve stenosis. Tricuspid Valve The tricuspid valve is normal in structure. There is trace to mild [facility] [address] [place] [address] 2 D/M-MODE ECHOCARDIOGRAM Name: FLACO FLOYD Room #: REG CL [facility]#: [id number] Admission: 01/13/20 Attend Phys: Dusty Floyd MD Discharge: Date of : 45 Report #: [id number] tricuspid regurgitation. Estimated PAP 30 mmHg. Pulmonic Valve The pulmonary valve is normal in structure. There is no pulmonic valvular regurgitation. Great Vessels The aortic root is normal in size. IVC is normal in size and collapses >50% with inspiration. Pericardium There is no pericardial effusion. <Conclusion> The left ventricle is normal size. There is normal left ventricular wall thickness. Left ventricular systolic function is normal. Grade I - abnormal relaxation pattern. The right ventricle is normal size. The left atrium size is normal. Trace aortic regurgitation. Trace to mild mitral regurgitation. There is trace to mild tricuspid regurgitation. Estimated PAP 30 mmHg. <ELECTRONICALLY SIGNED> By: Dusty Floyd MD 01/13/201205 05 05 Dusty Floyd MD /INF
== END ==
LOC: CV 09:23
PROVIDERS: ATTEND Internal Medicine Cardiovascular Disease
DX: I08.1 Rheumatic disorders of both mitral and tricuspid valves (principal)

== ENCOUNTER → 2020-01-13 | Outpatient (CLI) | payer OTHER | LOC: SJCVC 15:40 | PROVIDERS: ATTEND Internal Medicine Cardiovascular Disease | DX: R06.00 Dyspnea, unspecified (principal); I10 Essential (primary) hypertension; R60.9 Edema, unspecified; Z79.899 Other long term (current) drug therapy ==

== ENCOUNTER → 2020-01-20 | Outpatient (CLI) | payer OTHER ==
[~2020-01-20] VITALS: Ht 152.4 cm; Wt 67.9 kg
[~2020-01-20] MED LIST changes: +NAPROSYN500 MG PO
[2020-01-20 10:40] VITALS: BP 135/76
--- NOTE | 2020-01-20 10:54 | NUR ---
Pain Clinic Assessment: 1. History of Osteoarthritis: Not Applicable History of Rheumatoid Arthritis: NO 2. Height: 5 ft. 0 in. 152.4 cm. Weight: 149.8 lb. oz. 67.949 kg. Patient's BMI: 29.3 3. Vital Signs: BP: 135/76 Pulse: 69 Resp: 14 Temp: 02 Sat: 96 ECG Mon: 4. Pain Intensity: 3 5. Fall Risk: Dizziness: N Needs help standing or walking: N Fallen in the last 3 months: N Fall risk comments: 6. Patient on Blood Thinner: None 7. History of Hypertension: Y 8. Opioid Therapy greater than 6 weeks: Y Opiate Contract Signed: 04/07/16 9. Risk Assessment Tool Provided: LOW RISK 0 10. Functional Assessment Tool: 11. Recreational Drug Use: Never Drug Type: Tobacco Use: Never Smoker Tobacco Type: Amount or Packs/day: How Many Years: Alcohol Use: No Frequency: Quant:
--- NOTE | 2020-01-21 13:20 | HPC ---
[facility] [address] [place] [address] PAIN MANAGEMENT CONSULTATION Name: FLACO HARRISON Room #: REG [facility].#: [id number] Admission: 01/20/20 Attend Phys: Vivi Givens Discharge: Date of : 45 Report #: [id number] THIS REPORT FOR: cc: Ole Mallory MD, Christopher B. MD Hocker, Amanda CNS ~ CC: Vivi Pierson MD DATE OF SERVICE: 01/20/2020 CHIEF COMPLAINT: Trigeminal neuralgia and right shoulder pain. HISTORY OF PRESENT ILLNESS: This is a very pleasant, English speaking female who has a ultrasonic tester with her today who is here for medication refill that we use to help treat her trigeminal neuralgia. She finds the methadone and occasional hydrocodone very beneficial, though it does cause some constipation issues and takes lactulose on a regular basis. Today, she is reporting a pain score of 8/10 on her right lower jaw. It affect her gums and she describes as a sharp pain, worse with weather changes and cold. The patient is also complaining today of right upper arm and right shoulder pain. She reports awakening in the morning with significant discomfort and is unable to raise her arm more than 45 degrees and does have pain with movement. She has been utilizing her left arm to fix her hair and eat. The patient states this happened about 2 weeks ago and has not seen any physician for this new pain she did not fall. ALLERGIES: TAPE AND CONTRAST DYE. CURRENT LIST OF MEDICATIONS: Methadone 20 mg t.i.d., hydrocodone p.r.n., lactulose, lisinopril and hydrochlorothiazide. PQRS: 1. She denies a history of osteoarthritis or rheumatoid arthritis. 2. Height is 5 feet, weight is 149, BMI is 29. 3. Vital signs: Blood pressure 135/76, pulse is 69, respirations 14, oxygen saturation is 96%. 4. Pain score is 8/10. 5. Denies dizziness, does not need help walking, has not fallen in the last 3 months. 6. The patient is not on any blood thinners, but does take medicine for hypertension. 7. Opioid therapy is greater than 6 weeks; therefore, an opioid signed contract is on the chart. Risk assessment is low. Functional assessment is 49/70. 8. Recreational drug use, she denies. She is not a smoker and does not drink alcohol. [facility] [address] [place] [address] PAIN MANAGEMENT CONSULTATION Name: FLACO HARRISON Room #: REG [facility]#: [id number] Admission: 01/20/20 Attend Phys: Vivi Givens Discharge: Date of : 45 Report #: [id number] According to the prescription monitoring system, the patient is due to fill her medications today, filling them in a timely fashion. Her morphine milliequivalent is quite high at 224. She is followed very closely in the pain clinic and has not had issues of overmedication. We did take random drug screens and there is one on the chart. PHYSICAL EXAMINATION: GENERAL: This is alert and orientated, well-developed, well-nourished 74-year-old female who appears her stated age, placing her current pain score at 8/10. HEENT: Normocephalic and atraumatic. Mucous membranes are moist. She is wearing a mask today. She has tenderness along her right jaw that radiates into her gumline, anterior portion. No allodynia noted. She is wearing a mask, but does cause some increased pressure and discomfort. MUSCULOSKELETAL: The patient has pain with abduction of her right shoulder and in any flexion and extension. She is able to raise her arm at no more than 45 degrees before it becomes very painful. No bruising noted. IMPRESSION: 1. Trigeminal neuralgia. 2. Depression. 3. Opioid-induced constipation, treated with lactulose. 4. Management of high risk medications under written opioid agreement. 5. Right shoulder pain. IMAGING STUDIES: 3-view right shoulder shows no acute osseous abnormalities, did show indeterminant humeral head lesion and minor AC joint arthrosis. We reviewed the fact that opiate medications are being used to provide analgesia adequate to support activities of daily living, not attempting to achieve a specific pain score on the 0-10 Visual Analog Scale. The current opiate medications are providing sufficient analgesia to allow the patient to participate in activities of daily living. The patient is not exhibiting any aberrant behavior suggestive of drug diversion. The patient is not having any adverse reactions to medications. The patient is not suffering from daytime somnolence or mental acuity changes. The patient is managing opiate-induced constipation with appropriate fsie-mok-yywsusr agents and dietary considerations. The patient was counseled on concern for caution with operating a motor vehicle while using opiate medications. A physical exam was performed and the patient's functional status was evaluated. All patients with back pain were advised against the bed rest greater than 4 days and were advised to return to normal activities. Pain score assessment was noted and the treatment plan was reviewed with the patient. All current medications, both prescribed and OTC were reviewed and reconciled on the [facility] [address] [place] [address] PAIN MANAGEMENT CONSULTATION Name: FLACO HARRISON Room #: REG [facility]#: [id number] Admission: 01/20/20 Attend Phys: Vivi Givens Discharge: Date of : 45 Report #: [id number] electronic medical record. Tobacco screening was accomplished and smoking cessation was advised when indicated. BMI was noted and diet/exercise modification was recommended for all patients following outside normal parameters. I reviewed with the patient today their responsibilities to safeguard prescription medications, reviewed their responsibility to utilize medications only as prescribed by the physician. They are to seek and receive pain medications only from 1 physician group ( [facility]). They are to use 1 pharmacy and keep the clinic informed if they change pharmacies. Their responsibilities include making followup visits in a timely fashion and to avoid abrupt discontinuation of medication usage. Their responsibilities further include bringing their medications (bottles from the pharmacy with residual pills) to the visit for possible confirmation of pill counts and the patient understands it is their responsibility to submit to random drug screens to ensure both that the medications prescribed are present, and that no other controlled substances are present. All prescriptions provided today were generated electronically. PLAN: 1. We discussed treatment options with the patient today. We will continue on her current methadone dose and hydrocodone. These prescriptions have been very beneficial in keeping her as active as she is able to be in allowing her to exercise at home and be very independent. Scripts will be sent electronically by Dr. Pierson for methadone 10 mg 2 tablets 3 times a day, #180 for today and 4-week release as well as hydrocodone 10/325, #90 for today and 4-week. 2. The patient does continue to have issues with ongoing opioid-induced constipation. I will some lactulose with several refills to the pharmacy as well. 3. The patient has not sought medical attention for her ongoing right shoulder pain that has been greater than 2 weeks. I obtained an x-ray today that did show indeterminant humeral head lesion. I will order an MRI of her right shoulder without contrast to see if there is possibly a rotator tear due to her increasing pain in her right shoulder, unable to have a greater than 45 degrees. We will call the patient after we obtain these results and possibly send her to an orthopedic Dr. Rushing for consultation. The patient understands needing to schedule this as soon as possible and call after she has had the exam. 4. The patient is seen today in collaboration with Dr. Dejon Pierson. <ELECTRONICALLY SIGNED> By: Vivi Givens 01/21/20 1320 1319 [id number] Vivi Givens /nt
== END ==
LOC: PAIN
PROVIDERS: ATTEND Clinical Nurse Specialist Adult Health
DX: G50.0 Trigeminal neuralgia (principal); M25.511 Pain in right shoulder; F32.9 Major depressive disorder, single episode, unspecified; K59.03 Drug induced constipation; F11.20 Opioid dependence, uncomplicated; Z88.8 Allergy status to other drugs, medicaments and biological substances; Z79.899 Other long term (current) drug therapy

== ENCOUNTER → 2020-01-21 | Outpatient (CLI) | payer OTHER ==
[~2020-01-21] MED LIST changes: -NAPROSYN500 MG PO
== END ==
LOC: RAD 10:15
PROVIDERS: ATTEND Clinical Nurse Specialist Adult Health
DX: M75.51 Bursitis of right shoulder (principal); M25.411 Effusion, right shoulder

== ENCOUNTER → 2020-02-19 | Outpatient (CLI) | payer OTHER ==
[~2020-02-19] MED LIST changes: +NAPROSYN500 MG PO
[2020-02-19 14:00] VITALS: BP 170/90
== END ==
LOC: PUL 13:17
PROVIDERS: ATTEND Internal Medicine Pulmonary Disease
DX: J98.11 Atelectasis (principal); G50.0 Trigeminal neuralgia; M41.9 Scoliosis, unspecified; R53.83 Other fatigue; G47.19 Other hypersomnia; R06.83 Snoring; I51.7 Cardiomegaly; R91.1 Solitary pulmonary nodule; J98.4 Other disorders of lung; I71.2 Thoracic aortic aneurysm, without rupture; M47.814 Spondylosis without myelopathy or radiculopathy, thoracic region; K76.89 Other specified diseases of liver

== ENCOUNTER → 2020-03-12 | Outpatient (CLI) | payer OTHER ==
[~2020-03-12] VITALS: Ht 152.4 cm; Wt 66.3 kg
--- NOTE | ~2020-03-12 | HPC ---
[facility] [place] [address] PAIN MANAGEMENT CONSULTATION Name: FLACO HARRISON Room #: REG [facility].#: [id number] Admission: 03/12/20 Attend Phys: Vivi Givens Discharge: Date of : 45 Report #: [id number] THIS REPORT FOR: cc: Ole Mallory MD, Christopher B. MD Hocker,Vivi ARROYO ~ DATE OF SERVICE: 03/12/2020 CHIEF COMPLAINT: Trigeminal neuralgia. HISTORY OF PRESENT ILLNESS: This is a 74-year-old female who returns to the pain clinic today for a refill of her opioid medications. We are usually using the metal miner blasting phone since she does speak Japanese. Through this metal miner blasting, she is reporting a pain score today at 8/10, located on her right lower jaw. She reports the cold has increased her pain, but overall she feels most days she is doing quite well. She does continue to have some right upper arm pain from an ongoing issue earlier this year. She did attend physical therapy, which did help strengthen that arm. She states with significant housework, her pain is increased in her arm. The patient reports very minimal constipation issues and does utilize lactulose and finds that very beneficial. She has had hospitalizations in the past due to issues with constipation and finds the lactulose has been very beneficial in helping reduce any of those issues. Today, she is due for her methadone and hydrocodone. ALLERGIES: CONTRAST DYE AND TAPE. CURRENT LIST OF MEDICATIONS: Naproxen 500 mg b.i.d., lactulose, methadone 20 mg t.i.d. and lisinopril/hydrochlorothiazide. PQRS: 1. She denies history of osteoarthritis or rheumatoid arthritis. 2. Height is 5 feet, weight is 146, BMI is 28. 3. Vital signs 133/74, pulse is 70, respirations 18, oxygen sat is 93%. 4. Pain score is 8/10. 5. Denies dizziness, does not need help walking or standing, has not fallen in the last 3 months. 6. The patient is not on any blood thinners, but does take medicine for hypertension. 7. Her opioid therapy is greater than 6 weeks; therefore, an opioid signed contract is on the chart. Risk assessment is low. Functional assessment is 49/70. 8. Recreational drug use, she denies. She is not a smoker and does not drink alcohol. According to the prescription monitoring system, she is due to fill her medications, filling them in a timely fashion. Her morphine milliequivalent is [address] [address] PAIN MANAGEMENT CONSULTATION Name: FLACO HARRISON Room #: REG [facility]..#: [id number] Admission: 03/12/20 Attend Phys: Vivi Givens Discharge: Date of : 45 Report #: [id number] quite high due to the methadone conversion at 210. We do follow her very closely. She has been stable on this dose for quite some time. We have attempted to decrease her with increasing pain issues. PHYSICAL EXAMINATION: GENERAL: This is alert and orientated 74-year-old female who appears her stated age, placing her current pain score today at 8/10. HEENT: Normocephalic, atraumatic. Pupils equal and reactive. She is wearing a mask today. She has tenderness on the right jaw line that radiates into her gum with no allodynia noted. MUSCULOSKELETAL: Pain is increased with abduction of her right shoulder as well as flexion and extension. IMPRESSION: 1. Trigeminal neuralgia. 2. Depression. 3. Opioid-induced constipation, treated with lactulose. 4. Right shoulder pain, resolving. 5. Management of high-risk medications under terms of written opioid agreement. We reviewed the fact that opiate medications are being used to provide analgesia adequate to support activities of daily living, not attempting to achieve a specific pain score on the 0-10 Visual Analog Scale. The current opiate medications are providing sufficient analgesia to allow the patient to participate in activities of daily living. The patient is not exhibiting any aberrant behavior suggestive of drug diversion. The patient is not having any adverse reactions to medications. The patient is not suffering from daytime somnolence or mental acuity changes. The patient is managing opiate-induced constipation with appropriate zqkr-yav-ylpvdfr agents and dietary considerations. The patient was counseled on concern for caution with operating a motor vehicle while using opiate medications. PLAN: 1. We discussed treatment options with the patient today. Overall, the patient reports doing quite well on her current regimen. We will continue her on her methadone 20 mg t.i.d., quantity 180. This will be sent electronically by Dr. Pierson for this month and again to fill in 4 weeks as well as her hydrocodone 10, #90. 2. We will continue her on her naproxen. This has been beneficial in helping reduce some of her right shoulder pain. 3. The patient reports not needing lactulose refill. She has been taking this on an as needed basis, finds it very beneficial in helping with her opioid-induced constipation, but is not requesting refills today. [facility] [address] [place] [address] PAIN MANAGEMENT CONSULTATION Name: FLACO HARRISON Room #: REG [facility] Vicky#: [id number] Admission: 03/12/20 Attend Phys: Vivi Givens Discharge: Date of : 45 Report #: [id number] 4. The patient is seen today in collaboration with Dr. Dejon Pierson. She will return in 2 months. By: [id number] Vivi Givens /nt
[2020-03-12 11:14] VITALS: BP 133/74
--- NOTE | 2020-03-12 11:24 | NUR ---
Pain Clinic Assessment: 1. History of Osteoarthritis: Not Applicable History of Rheumatoid Arthritis: NO 2. Height: 5 ft. 0 in. 152.4 cm. Weight: 146.2 lb. oz. 66.316 kg. Patient's BMI: 28.6 3. Vital Signs: BP: 133/74 Pulse: 70 Resp: 18 Temp: 02 Sat: 93 ECG Mon: 4. Pain Intensity: 8 5. Fall Risk: Dizziness: N Needs help standing or walking: N Fallen in the last 3 months: N Fall risk comments: 6. Patient on Blood Thinner: None 7. History of Hypertension: Y 8. Opioid Therapy greater than 6 weeks: Y Opiate Contract Signed: 04/07/16 9. Risk Assessment Tool Provided: LOW RISK 0 10. Functional Assessment Tool: 11. Recreational Drug Use: Never Drug Type: Tobacco Use: Never Smoker Tobacco Type: Amount or Packs/day: How Many Years: Alcohol Use: No Frequency: Quant:
== END ==
LOC: PAIN 06:44
PROVIDERS: ATTEND Clinical Nurse Specialist Adult Health
DX: G50.0 Trigeminal neuralgia (principal); M25.511 Pain in right shoulder; F32.9 Major depressive disorder, single episode, unspecified; Z79.899 Other long term (current) drug therapy; Z79.891 Long term (current) use of opiate analgesic

== ENCOUNTER → 2020-05-05 | Outpatient (CLI) | payer OTHER ==
[~2020-05-05] VITALS: Ht 152.4 cm; Wt 67.0 kg
[2020-05-05 10:08] VITALS: BP 153/82
--- NOTE | 2020-05-05 10:16 | NUR ---
Pain Clinic Assessment: 1. History of Osteoarthritis: Not Applicable History of Rheumatoid Arthritis: NO 2. Height: 5 ft. 0 in. 152.4 cm. Weight: 147.8 lb. oz. 67.042 kg. Patient's BMI: 28.9 3. Vital Signs: BP: 153/82 Pulse: 75 Resp: 16 Temp: 02 Sat: 96 ECG Mon: 4. Pain Intensity: 9 5. Fall Risk: Dizziness: N Needs help standing or walking: N Fallen in the last 3 months: N Fall risk comments: 6. Patient on Blood Thinner: None 7. History of Hypertension: Y 8. Opioid Therapy greater than 6 weeks: Y Opiate Contract Signed: 04/07/16 9. Risk Assessment Tool Provided: LOW RISK 0 10. Functional Assessment Tool: 11. Recreational Drug Use: Never Drug Type: Tobacco Use: Never Smoker Tobacco Type: Amount or Packs/day: How Many Years: Alcohol Use: No Frequency: Quant:
--- NOTE | 2020-05-06 12:57 | HPC ---
[facility] [address] [place] [address] PAIN MANAGEMENT CONSULTATION Name: FLACO HARRISON Room #: REG ERICKSON M.Fani.#: [id number] Admission: 05/05/20 Attend Phys: Vivi Givens Discharge: Date of : 45 Report #: [id number] THIS REPORT FOR: cc: Ole Mallory MD, Christopher B. MD Hocker,Vivi ARROYO ~ DATE OF SERVICE: 05/05/2020 CHIEF COMPLAINT: Trigeminal neuralgia. HISTORY OF PRESENT ILLNESS: This is a 74-year-old female who returns today for a visit regarding her trigeminal neuralgia. Today, she is reporting a pain score of 9/10 along her right jaw gumline. It does radiate up into her ear, states that it is a sharp, stabbing, shooting pain. She reports through the perioperative assistant on the phone that it is worse when she is stressed or is cold and tired. She believes the medication as well as resting are beneficial in controlling her pain. She denies any significant constipation. She reports today she does not need her lactulose refilled. She has been using it very sparingly. Overall, she feels like she is doing quite well on her current regimen for her pain. I did ask the patient how her right shoulder is doing; the patient reports it is feeling much better. She did attend physical therapy and continues to do her strengthening exercises at home and denies any pain there. She had been taking naproxen and has stopped taking that medication. ALLERGIES: CONTRAST DYE AND TAPE. CURRENT LIST OF MEDICATIONS: Methadone 20 mg t.i.d. She is on lisinopril, hydrochlorothiazide and hydrocodone. PQRS: 1. The patient denies a history of osteoarthritis or rheumatoid arthritis. 2. Height is 5 feet, weight is 147, BMI is 28. 3. Vital signs 153/82, pulse is 75, respirations 16, oxygen sat is 96%. 4. Pain score is 9/10. 5. Denies dizziness, does not need help walking, has not fallen in the last 3 months. 6. The patient is not on any blood thinners. She does take medicine for hypertension. 7. Opioid therapy is greater than 6 weeks; therefore, an opioid signed contract is on the chart. Risk assessment is low. Functional assessment is 49/70. 8. Recreational drug use, she denies. She is not a smoker and does not drink alcohol. According to the prescription monitoring system, she is due to fill her [facility] [address] [place] [address] PAIN MANAGEMENT CONSULTATION Name: FLACO HARRISON [facility] [id number] Admission: 05/05/20 Attend Phys: Vivi Givens Discharge: Date of : 45 Report #: [id number] medications next week. Morphine milliequivalent is quite high at 224, though she is closely monitored for her medications. There is a drug screen on the chart that is appropriate for her medications. PHYSICAL EXAMINATION: GENERAL: This is alert and orientated Khmer speaking 74-year-old who is well-developed, well-nourished and appears her stated age, placing her current pain score a 9/10. HEENT: Normocephalic, atraumatic. She is wearing a mask. MUSCULOSKELETAL: She has tenderness in her right jaw line that radiates into her gum and radiates up into her ear today. She has no allodynia noted. No shoulder pain. IMPRESSION: 1. Trigeminal neuralgia. 2. Depression. 3. Resolved right shoulder pain. 4. Management of high risk medications under terms of written opioid agreement. We reviewed the fact that opiate medications are being used to provide analgesia adequate to support activities of daily living, not attempting to achieve a specific pain score on the 0-10 Visual Analog Scale. The current opiate medications are providing sufficient analgesia to allow the patient to participate in activities of daily living. The patient is not exhibiting any aberrant behavior suggestive of drug diversion. The patient is not having any adverse reactions to medications. The patient is not suffering from daytime somnolence or mental acuity changes. The patient is managing opiate-induced constipation with appropriate [id number] agents and dietary considerations. The patient was counseled on concern for caution with operating a motor vehicle while using opiate medications. A physical exam was performed and the patient's functional status was evaluated. All patients with back pain were advised against the bed rest greater than 4 days and were advised to return to normal activities. Pain score assessment was noted and the treatment plan was reviewed with the patient. All current medications, both prescribed and OTC were reviewed and reconciled on the electronic medical record. Tobacco screening was accomplished and smoking cessation was advised when indicated. BMI was noted and diet/exercise modification was recommended for all patients following outside normal parameters. I reviewed with the patient today their responsibilities to safeguard prescription medications, reviewed their responsibility to utilize medications only as prescribed by the physician. They are to seek and receive pain medications only from 1 physician group ([facility]). They are to use 1 pharmacy and keep the clinic informed if they change pharmacies. Their [facility] [address] [place] [address] PAIN MANAGEMENT CONSULTATION Name: FLACO HARRISON Room #: REG ERICKSON Perry#: [id number] Admission: 05/05/20 Attend Phys: Vivi Givens Discharge: Date of : 45 Report #: [id number] responsibilities include making followup visits in a timely fashion and to avoid abrupt discontinuation of medication usage. Their responsibilities further include bringing their medications (bottles from the pharmacy with residual pills) to the visit for possible confirmation of pill counts and the patient understands it is their responsibility to submit to random drug screens to ensure both that the medications prescribed are present, and that no other controlled substances are present. All prescriptions provided today were generated electronically. PLAN: 1. We discussed treatment options with her via the science interpreter phone. The patient reports that her pain is well controlled despite her high numbers. She explains that several times throughout the day, her pain is elevated and the hydrocodone does help alleviate those peaks. So, we will continue her on her methadone 10 mg tablets 3 times a day, #180, today sent for refills on 05/11/2020 and 06/08/[address] Pierson as well as her hydrocodone #90 of . 2. We did discuss the COVID vaccine. She was given the website for her science interpreter friend to help look up on her own cell phone and make an appointment for the vaccine. The patient is interested in having this, but is unsure how to go about doing this; the science interpreter did explain this as well. 3. The patient does not need any lactulose. Today, she reports that she is not having problems with constipation presently and only taking that as needed. 4. The patient is seen today in collaboration with Dr. Dejon Pierson. Time spent with the patient today in consultation and physical exam at least 15 minutes. Prior to that appointment reviewing her chart and any pertinent medical documentations including physician notes and imaging. Time also spent reviewing prescription monitoring system information, side effects of various medications related to her and scripts sent electronically that with documentation at least 20 minutes, total time 35 minutes. <ELECTRONICALLY SIGNED> By: Vivi Givens 05/06/20 1257 [id number] Vivi Givens /nt
== END ==
LOC: PAIN 05-04 06:57
PROVIDERS: ATTEND Clinical Nurse Specialist Adult Health
DX: G50.0 Trigeminal neuralgia (principal); F32.9 Major depressive disorder, single episode, unspecified; M25.511 Pain in right shoulder; F11.20 Opioid dependence, uncomplicated; Z88.8 Allergy status to other drugs, medicaments and biological substances; Z79.899 Other long term (current) drug therapy

== ENCOUNTER 2020-06-25 16:37 | Emergency (ER) | payer OTHER ==
[~2020-06-25] VITALS: Ht 152.4 cm; Wt 65.8 kg
[2020-06-25] MEDS ORDERED: MOBIC7.5 MG PO (18:31)
[2020-06-25 18:43] VITALS: BP 160/89
== END 2020-06-25 18:40 | disposition home or self-care (01) ==
LOC: ER 16:37
DX: S92.412A Displaced fracture of proximal phalanx of left great toe, initial encounter for closed fracture (principal); Z91.041 Radiographic dye allergy status; Z79.899 Other long term (current) drug therapy; Z90.710 Acquired absence of both cervix and uterus; Z98.890 Other specified postprocedural states; Z85.3 Personal history of malignant neoplasm of breast; W18.30XA Fall on same level, unspecified, initial encounter; Y93.89 Activity, other specified; Y92.89 Other specified places as the place of occurrence of the external cause; Y99.9 Unspecified external cause status

== ENCOUNTER → 2020-07-03 | Outpatient (CLI) | payer OTHER ==
[~2020-07-03] MED LIST changes: +MOBIC7.5 MG PO; +NORCO 10-325 T1 EACH PO
== END ==
LOC: LAB 13:57
PROVIDERS: ATTEND Specialist
DX: Z01.812 Encounter for preprocedural laboratory examination (principal); Z20.822 Contact with and (suspected) exposure to COVID-19

== ENCOUNTER → 2020-07-06 | Outpatient (CLI) | payer OTHER ==
[~2020-07-06] VITALS: Ht 152.4 cm; Wt 66.7 kg
[2020-07-06 09:20] VITALS: BP 139/76
--- NOTE | 2020-07-06 09:37 | NUR ---
Pain Clinic Assessment: 1. History of Osteoarthritis: Not Applicable History of Rheumatoid Arthritis: NO 2. Height: 5 ft. 0 in. 152.4 cm. Weight: 147.0 lb. oz. 66.679 kg. Patient's BMI: 28.7 3. Vital Signs: BP: 139/76 Pulse: 71 Resp: 16 Temp: 02 Sat: 97 ECG Mon: 4. Pain Intensity: 8 5. Fall Risk: Dizziness: N Needs help standing or walking: N Fallen in the last 3 months: N Fall risk comments: 6. Patient on Blood Thinner: None 7. History of Hypertension: Y 8. Opioid Therapy greater than 6 weeks: Y Opiate Contract Signed: 04/07/16 9. Risk Assessment Tool Provided: LOW RISK 0 10. Functional Assessment Tool: 11. Recreational Drug Use: Never Drug Type: Tobacco Use: Never Smoker Tobacco Type: Amount or Packs/day: How Many Years: Alcohol Use: No Frequency: Quant:
== END ==
LOC: PAIN 07:54
PROVIDERS: ATTEND Clinical Nurse Specialist Adult Health
DX: S92.412D Displaced fracture of proximal phalanx of left great toe, subsequent encounter for fracture with routine healing (principal); G50.0 Trigeminal neuralgia; F32.9 Major depressive disorder, single episode, unspecified; X58.XXXD Exposure to other specified factors, subsequent encounter; Z79.891 Long term (current) use of opiate analgesic

== ENCOUNTER → 2020-07-08 | Outpatient (CLI) | payer OTHER ==
[~2020-07-08] VITALS: Ht 152.4 cm; Wt 65.8 kg
--- NOTE | 2020-07-11 09:46 | P ---
[facility] [place] [address] PROCEDURE REPORT Name: FLACO HARRISON Room #: REG [facility]..#: [id number] Admission: 07/08/20 Attend Phys: Marvin Wilcox Discharge: Date of : 45 Report #: [id number] THIS REPORT FOR: cc: Ole Mallory MD, Christopher B. MD McElhinney, Christian C. MD ~ DOC #: [id number] cc: MD Marvin Saunders MD DATE OF SERVICE: 07/08/2020 PROCEDURE PERFORMED: Incomplete colonoscopy due to poor prep. HISTORY OF PRESENT ILLNESS: The patient is a 74-year-old female who presents today for routine screening colonoscopy. She denies any symptoms other than some constipation. No family history of colon cancer. DESCRIPTION OF PROCEDURE: The risks and benefits of the procedure were explained to the patient, those risks including but not limited to bleeding, perforation and the risk of sedation. She understood these risks and gave informed consent. Of note, the patient required a tape editor today. Propofol was given per anesthesia. Next, a digital rectal exam was initially performed, which was normal. Next, using a standard Olympus colonoscope, the scope was placed in the patient's anus and advanced under direct vision into the sigmoid colon. The overall prep was poor throughout. There was large amount of solid stool throughout the rectum and sigmoid colon. At this point, it was determined the prep was inadequate and the scope was then withdrawn and the procedure terminated. The patient tolerated the procedure well. IMPRESSION: Poor prep throughout. RECOMMENDATIONS: Reschedule colonoscopy in the near future either doubling the MiraLax prep or switching to a Suprep in the future. Thank you for allowing me to participate in her care. Marvin Damon MD [facility]/[address] [address] PROCEDURE REPORT Name: FLACO HARRISON [id number] Admission: 07/08/20 Attend Phys: Marvin Wilcox Discharge: Date of : 45 Report #: [id number] <ELECTRONICALLY SIGNED> By: Marvin Damon MD 07/11/20 0946 0834 1333 Marvin Damon MD /nt
== END | disposition home or self-care (01) ==
LOC: GI 07:35
PROVIDERS: ATTEND Specialist
DX: K59.00 Constipation, unspecified (principal); I10 Essential (primary) hypertension; Z98.890 Other specified postprocedural states; Z79.899 Other long term (current) drug therapy; Z85.3 Personal history of malignant neoplasm of breast; Z90.710 Acquired absence of both cervix and uterus; Z98.41 Cataract extraction status, right eye; Z98.42 Cataract extraction status, left eye; Z91.041 Radiographic dye allergy status; Z87.19 Personal history of other diseases of the digestive system
CPT/HCPCS: 62110; 62900

== ENCOUNTER 2020-08-07 15:04 | Inpatient (IN) | payer OTHER ==
[~2020-08-07] VITALS: Ht 152.4 cm; Wt 65.8 kg
[2020-08-07 15:07] VITALS: BP 142/63
[2020-08-07 17:19] LABS: ABSOLUTE NEUTROPHILS 5.1 thou/uL (1.4-8.2); BASOPHILS 0.5 % (0.0-2.0); EOSINOPHILS 1.7 % (0.0-3.0); HEMATOCRIT 38.3 % (37.0-47.0); HEMOGLOBIN 12.9 gm/dL (12.0-15.0); LYMPHOCYTES 23.1 % (24.0-44.0); MCH 31.7 pg (26.0-34.0); MCHC 33.8 g/dL (28.0-37.0); MCV 93.8 fL (80.0-100.0); PLATELET COUNT 270 thou/uL (150-400); POLYS 65.7 % (36.0-66.0); RBC 4.09 mil/uL (4.20-5.00); RDW 12.8 % (10.5-14.5); WBC 7.7 thou/uL (4.0-11.0)
[2020-08-07 17:26] LABS: ANION GAP 4 mmol/L (7-16); BUN 18 mg/dL (7-18); CALCIUM 9.1 mg/dL (8.5-10.1); CHLORIDE 104 mmol/L (98-107); CO2 31 mmol/L (21-32); GLUCOSE 100 mg/dL (74-106); POTASSIUM 4.5 mmol/L (3.5-5.1); SODIUM 139 mmol/L (136-145)
[2020-08-07 17:35] LABS: ALBUMIN 3.7 g/dL (3.4-5.0); SGOT 25 U/L (15-37); SGPT 23 U/L (14-59); TOTAL BILIRUBIN 0.3 mg/dL (0.2-1.0); TROPONIN-I <0.06 ng/mL (<0.06)
[2020-08-07 17:35] LABS: URINE BILIRUBIN NEGATIVE (Negative); URINE BLOOD TRACE (Negative); URINE CLARITY CLEAR; URINE COLOR YELLOW; URINE GLUCOSE-RANDOM* NEGATIVE (Negative); URINE KETONES NEGATIVE (Negative); URINE NITRITE-REFLEX NEGATIVE (Negative); URINE PROTEIN (DIPSTICK) NEGATIVE (Negative); URINE UROBILINOGEN 0.2 E.U./dl (0.2-1.0)
[2020-08-07 17:36] LABS: URINE LEUKOCYTES-REFLEX 1+ (Negative)
[2020-08-07 18:01] LABS: TOTAL PROTEIN 7.5 g/dL (6.4-8.2)
[2020-08-07 19:12] LABS: SQUAMOUS 4-10 Moderate /LPF (0-3)
[2020-08-07 19:13] LABS: BACTERIA-REFLEX 1-9 Few /HPF (None Seen); CASTS None Seen /LPF (None Seen); CRYSTALS None Seen /LPF (None Seen); URINE WBC-REFLEX 0-5 Rare /HPF (0-5)
[2020-08-07 19:14] LABS: URINE RBC None Seen /HPF (NONE SEEN)
[2020-08-07 19:55] VITALS: BP 159/66
[2020-08-07 21:02] VITALS: BP 151/43
--- NOTE | 2020-08-07 21:07 | NUR ---
FRIEND CONTACT FOR MEDICAL INFORMATION - MELY MERA [phone]
[2020-08-07 22:10] VITALS: BP 176/69
--- NOTE | 2020-08-07 22:35 | NUR ---
ADMITTED TO THE UNIT AT APPROXIMATELY 2130. PT IS A/O X4 AND IS ON BEDREST. ADMISSION COMPLETED WITH TRANSLATION ASSISTANCE AND HELP OF AUTHORIZED CONTACT FRIEND. C/O PAIN TO LEFT KNEE. PRN PAIN MEDICATIONS GIVEN DIRECTED. FLUIDS INFUSING DIRECTED. PT IS LYING IN BED AND APPEARS TO BE SLEEPING WITH EYES CLOSED. FALL PRECAUTIONS IN PLACE, CALL LIGHT IS WITHIN REACH. WILL CONTINUE TO MONITOR. AT MIDNIGHT PT IS NPO AND WILL BE AWAITING HER PROCEDURE.
[2020-08-08 05:54] LABS: CALCIUM 8.5 mg/dL (8.5-10.1); CREATININE 0.8 mg/dL (0.6-1.0); POTASSIUM 3.8 mmol/L (3.5-5.1)
[2020-08-08 06:00] VITALS: BP 166/73
[2020-08-08 08:31] VITALS: BP 152/72
[2020-08-08 11:26] LABS: HEMOGLOBIN 12.3 gm/dL (12.0-15.0); MCH 31.5 pg (26.0-34.0); MCHC 33.3 g/dL (28.0-37.0); MCV 94.5 fL (80.0-100.0); RBC 3.91 mil/uL (4.20-5.00); RDW 12.8 % (10.5-14.5); WBC 11.2 thou/uL (4.0-11.0)
[2020-08-08 12:09] VITALS: BP 127/67
--- NOTE | 2020-08-08 12:29 | EKG ---
[address] [place] [address] ELECTROCARDIOGRAM REPORT Name: FLACO HARRISON Room #: 440-P ADM IN M.R.#: [id number] Admission: 08/07/20 Attend Phys: Ramon Shepard MD Discharge: Date of : 45 Report #: [id number] [facility] ED Test Date: 2020-08-07 Test Time: 15:17:38 Pat Name: FLACO HARRISON Department: Room: 440 Gender: F Senior Staff Consultant: JCHAIMARIO : 1945 Requested By: Weston Rivas Order Number: [id number] MD: Ankur Abarca Measurements Intervals [place] Rate: 74 P: 54 WY: 157 QRS: 14 QRSD: 91 T: 41 QT: 416 QTc: 462 Interpretive Statements Sinus rhythm No significant abnormality Compared to ECG 08/30/2018 01:15:16 Sinus tachycardia no longer present Criteria for inferior infarct no longer present Electronically Signed On 08-08-2020 12:29:39 CDT by Ankur Abarca [email or web address] <ELECTRONICALLY SIGNED> By: Ankur Abarca MD, [facility] 08/08/20 1229 16 16 Ankur Abarca MD, [facility] /EPI
--- NOTE | 2020-08-08 13:31 | NUR ---
ASSUMED PT CARE THIS AM. PT IS ALERT & ORIENTED X4. PT HAS IV SITE ON L FA 20 GAUGE SALINE LOCKED AND R LIMB ALERT. PT HAS HIDALGO CATH IN PLACE AND USES BEDPAN. PT HAD SURGERY TODAY. PT HAS GAUZE, SELVIN AND KNEE BRACE. PT TOLERATED CLEAR LIQUID DIET ON LUNCH AND WILL ADVANCE THE DIET FOR DINNER. PT IS NON WEIGHT BEARING IN L LEG. PT C/O OF PAIN AND GIVEN PAIN MEDICATION PER REQUEST. PT FRIEND AT THE BEDSIDE. PT ON THE BED SLEEPING, BED ON THE LOWEST POSITION, SIDE RAILS UP, CALL LIGHT WITHIN REACH. WILL CONTINUE TO MONITOR PT. FOLLOW POC.
[2020-08-08 15:54] VITALS: BP 138/76
[2020-08-08 19:55] VITALS: BP 131/64
--- NOTE | 2020-08-09 00:45 | NUR ---
PT C/O PAIN. PRN PAIN MEDICATION AND PRESCRIBED GIVEN DIRECTED. LEFT KNEE IN IMMOBILIZER. DRSG IS C/D/I. FALL PRECAUTIONS IN PLACE, CALL LIGHT IS WITHIN REACH. WILL CONTINUE TO MONITOR.
[2020-08-09 05:30] LABS: HEMATOCRIT 33.4 % (37.0-47.0); HEMOGLOBIN 11.1 gm/dL (12.0-15.0); MCH 31.5 pg (26.0-34.0); MCHC 33.1 g/dL (28.0-37.0); RBC 3.51 mil/uL (4.20-5.00); RDW 12.8 % (10.5-14.5); WBC 13.4 thou/uL (4.0-11.0)
[2020-08-09 07:15] VITALS: BP 119/67
--- NOTE | 2020-08-09 11:02 | NUR ---
ASSUMED PT CARE THIS AM. PT IS ALERT & ORIENTED X4. PT HAS IV SITE ON L FA SALINE LOCKED 20 GAUGE AND R LIMB ALERT. PT HAS HIDALGO AND USES BEDPAN. NONWEIGHT BEARING ON L LEG. PT HAS GAUZE, SELVIN AND ICE PACK ON L PATELLAR. PT C/O OF PAIN AND GIVEN PAIN MEDICATION PER PT REQUEST. EDUCATED PT ABOUT PAIN MEDICATION. PT TOLERATED MEDICATION AND DIET WELL THIS AM. PT ON THE BED SLEEPING, BED ON THE LOWEST POSITION, SIDE RAILS UP, CALL LIGHT WITHIN REACH. WILL CONTINUE TO MONITOR PT. FOLLOW POC.
[2020-08-09 15:35] VITALS: BP 123/58
--- NOTE | 2020-08-10 03:55 | NUR ---
PT LYING IN BED. MORPHINE AND LORTAB PROVIDING PAIN RELIEF. RESTING COMFORTABLY. NO NEEDS VOICED. CALL LIGHT WITHIN REACH. FREQUENT OBSERVATION.
[2020-08-10 04:37] VITALS: BP 138/71
[2020-08-10 05:12] LABS: ABSOLUTE NEUTROPHILS 7.4 thou/uL (1.4-8.2); BASOPHILS 0.7 % (0.0-2.0); EOSINOPHILS 0.5 % (0.0-3.0); HEMATOCRIT 34.6 % (37.0-47.0); HEMOGLOBIN 11.8 gm/dL (12.0-15.0); LYMPHOCYTES 21.8 % (24.0-44.0); MCH 32.1 pg (26.0-34.0); MCHC 34.1 g/dL (28.0-37.0); MCV 94.1 fL (80.0-100.0); MONOCYTES 9.7 % (1.0-8.0); PLATELET COUNT 232 thou/uL (150-400); POLYS 67.3 % (36.0-66.0); RBC 3.68 mil/uL (4.20-5.00); RDW 12.6 % (10.5-14.5); WBC 10.9 thou/uL (4.0-11.0)
[2020-08-10 05:30] LABS: CALCIUM 8.3 mg/dL (8.5-10.1); CREATININE 0.8 mg/dL (0.6-1.0); MAGNESIUM 2.6 mg/dL (1.8-2.4); POTASSIUM 3.6 mmol/L (3.5-5.1)
[2020-08-10 08:13] VITALS: BP 127/68
--- NOTE | 2020-08-10 11:10 | NUR ---
Assumed care of pt at 0700. Pt a&ox4. Divehi speaking. Will obtain polymerization kettle operator computer from structural steel erection supervisor. Dressing c/d/i. Non-weight bearing. Pain controlled with prn pain meds. Cooper catheter in place. RA. Family at bedside. Call light within reach. Will continue to monitor.
--- NOTE | 2020-08-10 11:19 | NUR ---
ASSESSMENT: CM REVIEWED CHART AND SPOKE WITH PATIENT. PT IS S/P LEFT PATELLA ORIF AND IS NWB ON LLE. PT CONTINUES TO WORK WITH THERAPY AND PAIN CONTROL. CM MET WITH PATIENT AT THE BEDSIDE. PT IS ABLE TO SPEAK MINIMAL FAROESE AND PRIMARY LANGUAGE IS NEPALI. PTS RIPRAP MAN IS ABLE TO TRANSLATE FOR HER AND PT COMFORTABLE WITH THIS. PT LIVES ALONE IN A SINGLE STORY HOME. PT NORMALLY IS FULLY INDEPENDENT WITH ADLS AND AMBULATION. PT IS WORKING WITH PHYSICAL THERAPY AND LIKELY NEEDING ASSISTANCE PRIOR TO DISCHARGING HOME. CM DISCUSSED ACUTE REHAB WITH PATIENT AND SHE IS AGREEABLE IF SHE QUALIFIES. CONSULT WAS PLACED FOR 5N AND AWAITING INPUT AT THIS TIME. PTS PCP IS DR. RASHID COE AND PT ALSO SEES DR. FOLEY FOR CHRONIC PAIN DUE TO TRIGEMINAL NEURALGIA. CM WILL CONTINUE TO FOLLOW TO ASSIST NEEDED.
--- NOTE | 2020-08-10 16:29 | NUR ---
Assumed care from FRANKLIN Cage at 1300. Received awake on bed. Due medications given as prescribed, able to swallow meds w/o difficulty. On room air. Pt polish speaking, financial services manager services available in the bullard. On MS, not on telemetry; no complains and signs of chest pain, crushing sensation and heaviness. Assisted in ADLs. With friend at bedside- update given. On regular diet- tolerating well, no nausea, no vomiting and no abdominal pain noted. With tapia in place, draining well; output measured and recorded accordingly. With SL at L FA. On R limb alert- hx mastectomy. Falls bundle in place. Post op 08/08, surgical dressing in place; with immobilizer in place- pt non wt bearing; seen and examined by PT today. No bleeding and profuse drainage noted on post op site. Complained of pain, due medications given as prescribed. Pt complained of not having a bowel movement for 6 days- PRN laxative given as prescribed. With consult to Dr Jacques- US called answering service; a/w physician's rounds. To continue monitoring patient.
[2020-08-10 17:43] VITALS: BP 134/94
[2020-08-10 18:16] VITALS: BP 154/84
[2020-08-10 19:15] VITALS: BP 136/78
--- NOTE | 2020-08-11 04:19 | NUR ---
CZECH SPEAKING. FRIEND WAS ON THE PHONE TO HELP WITH TRANSLATION I DID ASSESSMENT AT THE START OF SHIFT. PT HAD QUESTIONS ABOUT NO BM IN 7 DAYS, IN A LITTLE WHILE AFTER, PT HELPED TO BSC AND SHE HAD A LARGE BM. GWEN WITH GOOD U/O. PAIN EDUCATION PROVIDED BECAUSE PT ASKING FOR 'PAIN SHOT" EVEN WHEN HYDROCODONE IS AVAILABLE. AGREEABLE WITH ALTERNATIONG. SHE IS A NICE LADY. TALKED ABIT ABOUT THE TRAUMA SHE HAS HAD IN HER LIFE.AWAITING REHAB PLACEMENT.
[2020-08-11 09:03] VITALS: BP 127/73
--- NOTE | 2020-08-11 11:50 | NUR ---
Assumed care of pt at 0700. Pt a&ox4. Mostly Pashto speaking. Non-weight bearing. Pain controlled with prn pain meds. Dressing c/d/i. Knee immobilizer in place. Up to the chair. Possible d/c to rehab tomorrow. Call light within reach. Fall precautions in place. Will continue to monitor.
--- NOTE | 2020-08-11 13:43 | NUR ---
on-going assessment: CM REVIEWED CHART SPOKE WITH PATIENT. [facility] STATING THEY CAN ACCEPT PATIENT BUT WILL NOT HAVE A BED UNTIL TOMORROW. CM DISCUSSED WITH PATIENT AND SHE IS AGREEABLE WITH THE PLAN TO GO TO [address] ADAMS MET WITH PATIENT YESTERDAY AND PROVIDED PATIENT WITH LIST OF OUTPATIENT RESOURCES WHO SPEAK ICELANDIC. PT REPORTS NO FURTHER NEEDS FROM CM AT THIS TIME. CM NOTIFIED BEDSIDE RN WE WILL NEED ANOTHER NEGATIVE COVID TEST PRIOR TO PATIENT ADMITTING TO 5N TOMORROW. CM WILL CONTINUE TO FOLLOW.
[2020-08-11 16:58] VITALS: BP 139/82
[2020-08-11 20:06] VITALS: BP 123/73
[2020-08-12 04:45] VITALS: BP 137/69
--- NOTE | 2020-08-12 05:12 | NUR ---
ASSUMED CARE OF PT AT SHIFT CHANGE. PT IS AOX4 AND LETS NEEDS BE KNOWN. FALL PRECAUTION IN PLACE. LLE BRACE IN PLACE. PT REPORTED LLE PAIN AND WAS TREATED AROUND THE CLOCK WITH PRNS. HIDALGO IN PLACE AND PATIENT. PT HAD A BM THIS SHIFT. PT DENIED NAUSEA OR SOA. PT SLEPT PART OF THE SHIFT. VSS AND NO S/S OF ACUTE DISTRESS WILL CONTINUE TO MONITOR.
[2020-08-12 07:53] VITALS: BP 154/89
[2020-08-12 08:52] VITALS: BP 154/89
[2020-08-12] MEDS ORDERED: CEFUROXIME250 MG PO (09:39)
--- NOTE | 2020-08-12 10:35 | NUR ---
ASSUMED PT CARE AROUND 0700. PT ALERT XORIENTED X 4. ON ROOM AIR. NON WEIGHT BEARING ON LEFT LEG, JUST PIVOT. PAIN OF 8-9 NOTED, PAIN PARTIALLY CONTROLLED BY PAIN MEDICINE. PT REFUSED STOOL SOFTNER. LBM YESTERDAY. HIDALGO IN PLACE. PROBABLE DCTO 5N, REHAB. FALLECAUTION IN PLACE. WILL CALL APPROPRIATELY. WILL CONT TO MONITOR.
--- NOTE | 2020-08-12 13:16 | NUR ---
ON-GOING ASSESSMENT: PLANS ARE FOR PATIENT TO DISCHARGE TO 5N ACUTE REHAB TODAY. PT HAD NEGATIVE COVID TEST. PTS FAMILY FRIEND AWARE OF DISCHARGE AND PT IS AGREEABLE. BEDSIDE RN IS AWARE AND HAS NUMBER FOR REPORT.
--- NOTE | 2020-08-19 08:50 | O ---
[facility] [place] [address] OPERATIVE REPORT Name: FLACO HARRISON Room #: 440-P [facility] IN M.R.#: [id number] Admission: 08/07/20 Attend Phys: Eric Valdez MD Discharge: 08/12/20 Date of : 45 Report #: [id number] THIS REPORT FOR: cc: Ole Mallory MD, Christopher B. MD VanDenBerghe,David Grimaldo MD ~ DOC #: [id number] David Nelson MD DATE OF SERVICE: 08/08/2020 PREOPERATIVE DIAGNOSIS: Left patellar fracture, comminuted. POSTOPERATIVE DIAGNOSIS: Left patellar fracture, comminuted. PROCEDURE PERFORMED: Open reduction and internal fixation of left patellar fracture. SURGEON: David Nelson MD STRIP MACHINE TENDER: Sravani Mcmahon PA-C. ANESTHESIA: General by Dr. Juárez per LMA. FLUIDS: 600 mL crystalloid. ESTIMATED BLOOD LOSS: Approximately 20 mL. TOURNIQUET TIME: Approximately 53 minutes at 300 mmHg. DESCRIPTION OF PROCEDURE: After proper identification of the patient and the operative site in preoperative holding area, the operative site was signed by myself. The risks, benefits, alternatives, and potential complications of the patient's injury as well as treatment was discussed in detail with the patient as well as her employee development manager which the [facility] provided by phone. After a lengthy discussion regarding her injury and the potential operative treatment options as well as the expected postoperative care recovery and physical therapy, she elected to proceed with the above. She was brought back to the operative suite after induction of satisfactory general anesthesia per LMA. The left lower extremity was elevated, tourniquet was applied to the upper thigh. The limb was sterilely prepped and draped in the usual manner, elevated and then exsanguinated with an Esmarch. The patient had some ecchymosis about the anterior knee. Some mild thickening and swelling about the prepatellar bursa. No fracture blisters and the skin was otherwise amenable to operative intervention. An anterior midline approach was planned. Skin was incised sharply. Full-thickness skin flaps were developed. Fracture hematoma and joint fusion were carefully removed and thoroughly irrigated with normal [address] [address] OPERATIVE REPORT Name: FLACO HARRISON Room #: 440-P DIS IN M.R.#: [id number] Admission: 08/07/20 Attend Phys: Eric Valdez MD Discharge: 08/12/20 Date of : 45 Report #: [id number] saline. The patient had a primarily transverse fracture pattern. The superior fragment was intact in its entirety and initially, there seemed to be 2-3 main fracture fragments inferiorly. Initially once the fracture was reduced with a bone holding forceps, 2 cannulated screws were attempted to be placed through the inferior pole extending superiorly as I thought I did better purchase of the threaded portion of the screws into the superior fragment. Once these were inserted, there was enough fragmentation noted inferiorly that I felt it would be best to switch to a tension band wire type construct and so K-wires were inserted and in addition as supplemental fixation, two #2 FiberWires were passed into the patellar tendon from proximal going distal and back proximal and then three separate drill holes were placed and the Hernandez suture passer was used to pass the sutures through the patellar fragments to supplemental fixation more lisset to the patellar tendon repair just to help decrease some of the stress on the fracture fragments. The comminution was large enough that it would have excised the inferior 40-50% of the patella and for post-injury patellofemoral joint pain and tracking was trying to preserve as much of this as possible and retain her function without overtightening her extensor mechanism. 3 mL of bone graft putty was also placed and interdigitated into the fracture site. An 18-gauge stainless steel wire was used in a tension band construct as well as a FiberTape to kindergartners helper in reduction of the fracture. These were tightened and secured nicely. The K-wires were bent, and buried within the soft tissues to minimize any irritation and the overall images in the AP, oblique and lateral planes revealed satisfactory reduction for this comminuted patella fracture. I think it was stable with flexion and did not appear to separate or displace any further and based on this, the wound was then thoroughly irrigated with normal saline and closed in layers with 0 Vicryl, 2-0 Vicryl followed by brenda. The patient will be immobilized in a hinged knee brace locked in full extension and this was performed after a sterile dressing was applied. The patient has a long history of methadone use and her postoperative pain control will be more complicated based on this and we will defer to our hospitalist colleagues for further pain management control as well. A qualified first aid instructor utilized throughout the entire procedure to aid in patient limb positioning, visualization and retraction of soft tissues, instrument passage, closure and sling and dressing application. David Nelson MD GRV/KDA <ELECTRONICALLY SIGNED> By: David Nelson MD 08/19/20 0850 [id number] [id number] David Nelson MD /nt
== END 2020-08-12 16:32 | DRG 516 ==
LOC: ER 15:04 → 4S 18:53 → EROBS 18:53 → 4S 21:15
PROVIDERS: Nurse Practitioner Family; Physician Assistant; Physician Assistant Surgical; ADMIT Internal Medicine; ATTEND Internal Medicine
PROC: 0QSF04Z Reposition Left Patella with Internal Fixation Device, Open Approach (ICD-10-PCS; principal; 2020-08-08)
DX: S82.032A Displaced transverse fracture of left patella, initial encounter for closed fracture (principal); N39.0 Urinary tract infection, site not specified; I10 Essential (primary) hypertension; G50.0 Trigeminal neuralgia; R53.81 Other malaise; F32.9 Major depressive disorder, single episode, unspecified; F43.21 Adjustment disorder with depressed mood; F43.10 Post-traumatic stress disorder, unspecified; F80.89 Other developmental disorders of speech and language; Z20.822 Contact with and (suspected) exposure to COVID-19; Z90.710 Acquired absence of both cervix and uterus; Z85.3 Personal history of malignant neoplasm of breast; Z90.11 Acquired absence of right breast and nipple; Z98.42 Cataract extraction status, left eye; Z98.41 Cataract extraction status, right eye; Z91.041 Radiographic dye allergy status; Z91.09 Other allergy status, other than to drugs and biological substances; W18.39XA Other fall on same level, initial encounter; Y93.89 Activity, other specified; Y92.098 Other place in other non-institutional residence as the place of occurrence of the external cause; Y99.8 Other external cause status; Z79.899 Other long term (current) drug therapy
CPT/HCPCS: 10102; 50010; 50101; 50386; 51014; 51412; 53337; 56521; 56525; 56530; 57091; 57180; 58812; 62110; 62900; 70005

== ENCOUNTER 2020-08-11 13:30 | Inpatient (IN) | payer OTHER ==
[~2020-08-11] VITALS: Ht 152.4 cm; Wt 65.8 kg
[2020-08-12] MEDS ORDERED: CEFUROXIME250 MG PO (09:39)
--- NOTE | 2020-08-12 17:09 | NUR ---
PT ARRIVED TO FLOOR FROM 4TH. PT WHEELED IN AND TRANSFERED VIA WALKER TO CHAIR. PT LEFT LE IS WRAPPED IN SELVIN WRAP AND HAS BRACE ON LEFT LEG. PT HAS SHELL MOLD BONDER FRIEND ANASTACIO TO HELP WITH ADMIT. PT HAS PAIN TO LEFT LE OF 8 ON 1-10 SCALE. ADM HYDROCODONE 10MG PO FOR PAIN. ANASTACIO STATED IT WAS FOR HER TRIGEMINAL NEURALGIA AND WANTED TO KNOW ABOUT THE MORPHINE THAT WAS GIVEN ON 4 TH FLOOR. PT SPEAKS TAMAZIGHT PRIMARY LANGUAGE.
[2020-08-12 17:13] VITALS: BP 131/77
--- NOTE | 2020-08-12 18:38 | NUR ---
AFTER ADM. PT STATED SHE WAS SUICIDAL IN THE PAST AFTER HER DTR PASSED. HER DTR PASSED AT 9 YRS OLD FROM A VIRUS THAT AFFECTED HER HEART. HER PASSED FROM A STROKE 3 YRS AGO. HER PCP RECOMENDED A PSYCHOLOGIST WHEN SHE DISCHARGES. PT HAS HIDALGO TO DD ALSO FROM FREQUENCY OF URINE AND INABLILITY TO MOVE EASILY. PT LIVES ALONE AT THIS TIME.
[2020-08-12 19:55] VITALS: BP 117/71
--- NOTE | 2020-08-12 23:50 | NUR ---
PT ASSESSMENT COMPLETED AND VSS. MEDS GIVEN ORDERED AND WELL TOLERATED. FALL PRECAUTIONS IN PLACE. HIDALGO DRAINING MODERATE AMOUNT OF YELLOW URINE. PT C/O OF PAIN LEVEL 8-10. PT CRYING BECAUSE OF PAIN. PAIN MEDICATION REDUCED FROM WHAT PT WAS GETTING PRIOR TO COMING TO THIS FLOOR. CONTACTED JEWEL BEARING GRINDER. MEDICATION ADJUSTMENTS MADE. WILL CONTINUE TO MONITOR PT FREQUENTLY INCLUDING PAIN CONTROL.
[2020-08-13 04:44] LABS: HEMATOCRIT 37.4 % (37.0-47.0); HEMOGLOBIN 12.6 gm/dL (12.0-15.0); MCH 31.9 pg (26.0-34.0); MCHC 33.7 g/dL (28.0-37.0); MCV 94.6 fL (80.0-100.0); RBC 3.96 mil/uL (4.20-5.00); WBC 10.6 thou/uL (4.0-11.0)
[2020-08-13 04:57] LABS: CALCIUM 8.7 mg/dL (8.5-10.1); CREATININE 0.8 mg/dL (0.6-1.0)
[2020-08-13 08:00] VITALS: BP 121/73
--- NOTE | 2020-08-13 10:55 | NUR ---
Nutrition: pt admitted to rehab unit with displaced transverse patella fracture. Consult stating " new admit, no issues ". Eating 60-80% of meals recently on regular diet. Weights stable past year. Speaks hebrew. RD available if needed but consider low nutrition risk.
--- NOTE | 2020-08-13 11:00 | NUR ---
ASSUMED CARE AT 0700. SLEPT FAIR. ALERT AND ORIENTATED X 3. SPEAKS SOME BRAZILIAN AND ABLE TO MAKE NEEDS KNOWN. NEEDS TRANSLATION USING HER FRIEND, ANASTACIO. PT REPORTED PAIN 10/10 TO R FACE AND L KNEE. IV MORPHINE 4MG GIVEN X 1 AND PT REPORTED HAVING LOTS OF BURNING PAIN WITH ADMINISTRATION, NO SIGN OF PHLEBITIS. PT REQUEST IV REMOVED. IV TEAM UNABLE TO GET A LINE. PIERCE INBOUND INGREDIENT LOGISTICS SPECIALIST NOTIFIED. PAIN MEDS ADJUSTED WITH MUSCLE RELAXANT ADDED. PT WAS GIVEN NEENA METHADONE, HYDROCODONE, TYLENOL AND PRN NORCO AND FINALLY REPORTED SOME RELIEF WITH PAIN CONTROL. PARTICIPATIN WITH THERAPY. UP WITH X 1 GAIT BELT WITH WALKER WITH MIN ASSIST. LLE INCISION DRESSING INTACT, PEDAL PULSES PALPABLE, ABLE TO MOVE ALL TOES.
--- NOTE | 2020-08-13 12:13 | NUR ---
vat called for piv, attempted x3 unsuccessful. All PIV's infiltrate when flushed. USG used still unsuccessful. RN notified
[2020-08-13 12:57] LABS: FOLIC ACID 19.5 ng/mL (8.6-58.9)
--- NOTE | 2020-08-13 13:50 | NUR ---
Chart review. Patient up working with therapy this am, unable to visit with her. noted her primary language is Turkish and her senior branch manager is able to form tamping machine operator for her. She lives alone in a home. no stairs, independent prior to hospital. No dme, no hh or rehab in the past. PCP is Dr Solo Mallory and sees Dr Pierson for pain control. Will cont following as needed for dc needs.
[2020-08-13 19:20] VITALS: BP 110/65
--- NOTE | 2020-08-13 23:35 | NUR ---
PT ALERT AND ORIENTED X 4. LEFT KNEE DRESSING C/D/I. LEFT LEG IMMOBILIZER ON. HIDALGO PATENT DRAINING CLEAR YELLOW URINE. PT REFUSED COLACE AND MIRALAX AT HS. PT C/O PAIN IN LEFT KNEE. DR VILLANUEVA NOTIFIED AND 2200 DOSE OF HYDROCODONE GIVEN EARLY AT 1945. SCHEDULED METHADONE AND ROBAXIN GIVEN AT HS. PT SLEEPING AT INTERVALS BETWEEN PAIN MEDS. ICE TO LEFT KNEE AND RIGHT SIDE OF FACE. PT TAKES MEDS WITH WATER WITHOUT DIFFICULTY. BED ALARM ON FOR SAFETY. PT CHECKED ON HOURLY ROUNDS.
[2020-08-14 07:15] VITALS: BP 121/67
--- NOTE | 2020-08-14 08:24 | NUR ---
ADM HYDROCODONE 10MG PO FOR PAIN TO LEFT KNEE OF 7 ON 1-10 SCALE.
--- NOTE | 2020-08-14 08:25 | NUR ---
PT LYING IN BED WITH PILLOW UNDER LEFT LOWER EXT. PT HAS ICE PACKS AT BEDSIDE FOR LEFT KNEE AND ONE FOR RT SIDE OF FACE. PT STATED PAIN IS 7 ON 1-10 SCALE TO LEFT KNEE. PT HAS HIDALGO TO DD WITH CLEAR YELLOW URINE. PT HAS IMMOBILIZER TO LEFT LE. PT ABLE TO SPEAK INTO HER PHONE TO TRANSLATE SINHALA TO [place]ONG KONGER. PT LBM 08/12. PT ABLE TO TRANSFER VIA WALKER TO CHAIR WITH ASSIST. PT KEEPS LLE ELEVATED ON PILLOWS IN BED AND ALSO IN THE RECLINER CHAIR.
--- NOTE | 2020-08-14 12:24 | NUR ---
ADM HYDROCODONE 10MG PO FOR PAIN TO LEFT KNEE OF 7 ON 1-10 SCALE.
--- NOTE | 2020-08-14 17:00 | NUR ---
ADM HYDROCODONE 10MG PO FOR PAIN TO LEFT KNEE. PT STATED SHE IS ALSO HURTING TO RT SIDE OF FACE OF 8 ON 1-10 SCALE.
[2020-08-14 19:24] VITALS: BP 129/69
--- NOTE | 2020-08-14 23:32 | NUR ---
PT ASSESSMENT COMPLETED AND VSS. MEDS GIVEN ORDERED AND WELL TOLERATED. FALL PRECAUTIONS IN PLACE. UP TO THE BATHROOM WITH ASST/GAIT/WALKER. BOWEL MOVEMENT AT HS AFTER GETTING PRUNE JUICE FOR CONSTIPATION. DRESSING ON LEFT LEG DRY AND INTACT. IMMOBILIZER ON AND LEG ELEVATED ON PILLOWS. SLEEPING. PRN AND SCHEDULED PAIN MEDICATION HELPFUL. WILL CONTINUE TO MONITOR FREQUENTLY.
[2020-08-15 08:00] VITALS: BP 95/68
--- NOTE | 2020-08-15 10:13 | NUR ---
ASSUMED CARE AT 0700. PATIENT IS ALERT AND ORIENTEDX4. PATIENT REICH'S, DIRECTOR OF CARDIOLOGY SERVICE LINE ARE EQUAL. LUNGS ARE CLEAR. ABD IS SOFT WITH BSX4. PATIENT UP IN CHAIR FOR MEALS. PATIENT HAS HIDALGO TO DD, DRAINING DIANE COLORED URINE. PATIENT HAS BRACE TO HER LEFT LOWER EXTREMITY. PATIENT CONTINUES ON ORAL ABT WITHOUT ADVERSE REACTION. PATIENT REMAINS NWB TO HER LEFT LOWER EXTREMITY. PATIENT HAS TMJ. ICE APPLIED TO FACE AND LEFT LOWER LEG. FALL AND SAFETY PROTOCOLS IN PLACE. C/O LEFT LOWER EXTREMITY PAIN. MEDICATED WITH PRN PAIN MEDS. CONTINUES TO PROGRESS SLOWLY TOWARDS D/C GOALS. WILL CONTINUE TO MONITER.
[2020-08-15 19:16] VITALS: BP 125/77
--- NOTE | 2020-08-16 03:04 | NUR ---
C/O INTENSE KNEE PAIN AND JAW PAIN. REMINDED TO ASK FOR PRN PAIN MED WHICH SHE CAN HAVE ONLY OFTEN EVERY 4 HOURS. USING ICE TO KNEE AND FACE AND ASKING FOR NEW ICE IN ICE BAGS APPROX EVERY 3 HOURS. UP TO TOILET WITH WALKER, GAIT BELT, AND CONTACT GUARD ASSIST FOR SMALL BM. SHE IS ABLE TO MAINTAIN NWB BY KEEPING LEG OFF FLOOR WITH SELVIN WRAP AND BRACE ON
--- NOTE | 2020-08-16 09:29 | NUR ---
PT NEEDING TO GO TO BATHROOM THIS AM TO HAVE A BM. PT ASSISTED X1 TO BATHROOM VIA WALKER. PT IS NWB TO LEFT LEG WITH BRACE. PT LLE IS WRAPPED IN SELVIN WRAP FROM GROIN TO ANKLE. PT LUNGS CLEAR. PT RECEIVED NORCO 7.5MG PO FOR PAIN TO LEFT LE TO KNEE OF 8 ON 1-10 SCALE. PT HAS ICE PACKS TO LLE AND ALSO RT SIDE OF FACE.
[2020-08-16 09:30] VITALS: BP 115/61
[2020-08-16 19:00] VITALS: BP 122/66
--- NOTE | 2020-08-16 23:47 | NUR ---
UP WITH GAIT BELT AND WALKER FROM CHAIR TO BED, WEARING BRACE OVER SELVIN WRAP TO LEFT LOWER EXTREMITY, MAINTAINS NWB VERY WELL. GWEN TO FELIZ. TAKING HYDROCODONE TEN EVERY 4 HOURS IN ADDITION TO REGULARLY SCHEDULED MEDS. APPRECIATES KEEPING ICEBAGS REPLENISHED EVERY 2-3 HOURS
[2020-08-17 07:15] VITALS: BP 102/59
--- NOTE | 2020-08-17 10:48 | NUR ---
ASSUMED CARE AT 0700. SLEPT FAIRLY WELL.ALERT AND ORIENTATED X 4. SEEMS MORE RELAX THIS MORNING AND REPORTED PAIN IN HER L KNEE AT 6/10 AND IS TOLERABLE FOR TIME BEING. SPOKE TO DR VILLANUEVA REGARDING PAIN ISSUES AND SURGICAL DRESSING REMOVED WITH OLD DRAINAGE, DR VILLANUEVA SAW INCISION NOTED NO INFLAMMATION, REDNESS OR SWELLING SEEN. CLARY INTACT. DRESSING CHANGED USING XEROFOAM AND COVERED WITH GAUZE AND SURGICAL BANDAGE ROLL AND SELVIN WRAP AND BRACE IN PLACE. ABLE TO MOVE ALL TOES AND PEDAL PULSES PALPABLE. ALSO REPORT CHRONIC PAIN IN R FACE AND ICE PACKS GIVEN WITH SOME RELIEF. HIDALGO REMOVED TODAY AT 0900. PT ABLE TO VOID 50ML POST HIDALGO REMOVAL. ENC INC FLUID INTAKE. NOTED TO [employer] SAFETY TESTER REGARDING ADDING CYMBALTA PER DR OLMEDO RECOMMENDATION REGARDING DEPRESSION AND NERVE PAIN. FLUID.
--- NOTE | 2020-08-17 14:43 | PLAN ---
[facility] [place] [address] REHAB UNIT PLAN OF CARE Name: FLACO HARRISON Room #: 506-1 ADM IN M.R.#: [id number] Admission: 08/12/20 Attend Phys: Jeffrey Rashid MD Discharge: Date of : 45 Report #: [id number] THIS REPORT FOR: cc: Ole Mallory MD, Christopher B. MD Smithson, David G. MD ~ DOC #: [id number] Jeffrey Rashid MD DATE OF SERVICE: 08/12/2020 PROGRESS NOTE SUBJECTIVE: History and physical for documentation will be completed tomorrow. The patient was seen and is admitted for acute in-hospital inpatient rehabilitation. No specific complaints except for some left toe pain. She questions if an x-ray has been done. She is concerned she may have broken her toe during the fall in which she injured her knee. Otherwise, has no specific complaints. She is pleasant, alert and has a friend here who serves as an bull fiddle player. Functional range of motion of both upper extremities without obvious focal weakness. Left lower extremity, she does have the knee brace in place. No calf swelling of either lower extremity. She has been transferring with stand pivot and hopping a short distance with a walker. She is needing assistance with basic ADLs. Upon examination of her left large toe, I was able to gently move it without obvious marked increased pain, but she does have some generalized discomfort. No noted swelling or erythema. ASSESSMENT: 1. Fall with left displaced patellar fracture, status post open reduction and internal fixation, 08/08/2020, nonweightbearing left lower extremity. 2. Left toe pain with the patient concern regarding fracture. 3. Urinary tract infection. 4. Hypertension. 5. Trigeminal neuralgia with chronic pain. 6. Depression with posttraumatic stress disorder. 7. Language barrier. PLAN: We will go ahead and get an x-ray of that left toe as discussed. Also discussed discharge planning with the patient's friend who is here visiting and notes that she would be able to be of assistance. The plan would be to try to get the patient up to a level at home that she could all stay on one level. She does live in a house alone with 2 steps in. Jeffrey Rashid MD DGS/STD/[address] [address] REHAB UNIT PLAN OF CARE Name: FLACO HARRISON Room #: 506-1 ADM IN [facility].#: [id number] Admission: 08/12/20 Attend Phys: Jeffrey Rashid MD Discharge: Date of : 45 Report #: [id number] <ELECTRONICALLY SIGNED> By: Jeffrey Rashid MD 08/17/20 1443 [id number] [id number] Jeffrey Rashid MD /nt
[2020-08-17 19:09] VITALS: BP 136/72
--- NOTE | 2020-08-17 21:44 | NUR ---
ASSUMED CARE OF PT AT 1915. PT IS A&OX4. UNDERSTANDS THAI, BUT HAS DIFFICULTY SPEAKING THAI. IS STABLE. IS ON ROOM AIR. REPORTS PAIN ON RIGHT SIDE OF FACE & LEFT KNEE THAT IS BEING MANAGED WITH ORAL PAIN MEDS & OTHER THERAPUETIC TECHNIQUES. APPLYING ICE PACKS WELL. DRSG & SELVIN WRAP C/D/I TO LLE. BRACE IN PLACE. IS ABLE TO WIGGLE TOES. COLOR'S APPROPRIATE FOR ETHNICITY. PT IS UP WITH 1 ASSIST, GAIT BELT, WALKER STAND PIVOT. IS NON WT BEARING. FALL PRECAUTIONS & HOURLY ROUNDING CONTNUED THIS SHIFT. LABS & VITALS REVIEWED. PT IS CURRENTLY UP IN CHAIR. IS ABLE TO REPOSITION SELF. CALL LIGHT WITHIN REACH. WILL CONTINUE TO MONITOR.
[2020-08-18 05:37] LABS: ABSOLUTE NEUTROPHILS 4.4 thou/uL (1.4-8.2); BASOPHILS 0.7 % (0.0-2.0); EOSINOPHILS 2.4 % (0.0-3.0); HEMATOCRIT 33.2 % (37.0-47.0); HEMOGLOBIN 11.3 gm/dL (12.0-15.0); LYMPHOCYTES 26.8 % (24.0-44.0); MCV 94.1 fL (80.0-100.0); MONOCYTES 8.4 % (1.0-8.0); PLATELET COUNT 296 thou/uL (150-400); POLYS 61.7 % (36.0-66.0); RBC 3.53 mil/uL (4.20-5.00); RDW 12.7 % (10.5-14.5); WBC 7.1 thou/uL (4.0-11.0)
[2020-08-18 05:59] LABS: CALCIUM 8.5 mg/dL (8.5-10.1); CREATININE 0.8 mg/dL (0.6-1.0); MAGNESIUM 2.1 mg/dL (1.8-2.4); POTASSIUM 3.9 mmol/L (3.5-5.1)
--- NOTE | 2020-08-18 07:58 | NUR ---
ASSUMED CARE AT 0700. PATIENT IS ALERT AND ORIENTEDX4. PATIENT HAS LANGUAGE BARRIER. PATIENT REICH'S, PATIENT C/O TMJ, ICE APPLIED TO HER FACE. PATIENT HAS LEFT LOWER EXTRREMITY BRACE ON WITH SELVIN WRAP. PATIENT HAS GOOD CAP REFILL. LUNGS ARE CLEAR. ABD IS SOFT WITH BSX4. UP WITH WALKER WITH GAIT BELT TO THE BR TO VOID DIANE COLORED URINE. FALL AND SAFETY PROTOCOLS IN PLACE. C/O PAIN IN HER JAW AND HER LEFT EXTREMITY. PATIENT MEDICATED WITH PRN PAIN . MEDICATED WITH PRN PAIN MED. CONTINUES TO PROGRESS SLOWLY TOWARDS D/C GOALS. WILL CONTINUE TO MONITER.
--- NOTE | 2020-08-18 13:32 | NUR ---
Team meeting. NWB left lower ext. needs more social support. needs more assist for wheel chair set, assist with place support under left lower ext when use of bsc or toilet. she hopping with therapy 20-40Ft. she will need wheel chair and fww for dc . has 2 steps to enter her home. She will need assist with errands, cooking, for IADL's. will as friend wendie can train with therapy and see if can stay with young. will need bsc. dc 08/24. ( pt, ot, nursing, sw). if goes home will need wc transport home and has 2 steps to be pumped up to get into the home.
[2020-08-18 19:28] VITALS: BP 130/69
--- NOTE | 2020-08-18 23:12 | NUR ---
PT ASSESSMENT COMPLETED AND VSS. MEDS GIVEN ORDERED AND WELL TOLERATED. FALL PRECAUTIONS IN PLACE. PT UP TO THE BATHROOM SEVERAL TIMES WITH ASST/GAIT/WALKER. PT REMAINS NWB ON LEFT LEG. PRN PAIN MEDICATION HELPFUL FOR LEVEL 7 PAIN. SCHEDULED MUSCLE RELAXER AND METHADONE GIVEN. ICE PACKS PROVIDED FOR KNEE PAIN AND TMJ TO THE R JAW. ASST WITH REPOSITION FOR COMFORT. SLEEPING WELL. WILL CONTINUE TO MONITOR FREQUENTLY. STOOL SOFTNER AND PRUNE JUICE PROVIDED FOR CONSTIPATION. NO BM SO FAR DURING SHIFT.
[2020-08-19 07:15] VITALS: BP 145/83
--- NOTE | 2020-08-19 12:01 | NUR ---
ASSUMED CARE AT 0700. SLEPT FAIR. ALERT AND ORIENTATED X 3. SPEAKS SOME WELSH AND ABLE TO MAKE NEEDS KNOWN. CONSTANTLY REPORTING PAIN AT 7/10 DESPITE GIVEN HYDROCODONE PRN. PT ALSO FEELING CONSTIPATED AND REQUESTED FOR A SUPPOSITORY. L LE WITH BRACE AND DRESSING INTACT. PEDAL PULSES PALPABLE AND ABLE TO MOVE ALL TOES. ICE PACKS USED FOR PAIN CONTROL WELL WITH LITTLE RELIEF. PARTICIPATING WITH THERAPY AND PROGRESSING TOWARDS GOAL.
--- NOTE | 2020-08-19 12:40 | NUR ---
Cm visited with pt and friend sharron, who translate for her about snf list for skilled rehab. [facility], [facility], [facility] referrals to be sent. Sharron stated that she kimber not have assist at home so she needs to be able assist her self when she goes home.
--- NOTE | 2020-08-19 12:43 | H ---
[facility] [place] [address] HISTORY AND PHYSICAL Name: FLACO HARRISON Room #: 506-1 ADM IN M.R.#: [id number] Admission: 08/12/20 Attend Phys: Jeffrey Rashid MD Discharge: Date of : 45 Report #: [id number] THIS REPORT FOR: cc: Ole Mallory MD, Christopher B. MD Smithson, David G. MD ~ DOC #: [id number] Jeffrey Rashid MD DATE OF SERVICE: 08/12/2020 ADDENDUM: HISTORY OF PRESENT ILLNESS: The patient has been admitted for acute in-hospital inpatient rehabilitation. Please see my note from when I saw her yesterday and the full history and physical documentation. The patient had a fall at home with a left patellar fracture, displaced. Orthopedics consulted, underwent ORIF on 08/08/2020, placed in an immobilizer and is nonweightbearing left lower extremity. She also was diagnosed with a urinary tract infection, started on antibiotics. She has a history of trigeminal neuralgia and depression/PTSD as well as hypertension. She has been admitted for acute in-hospital inpatient rehabilitation. Please see the documentation regarding past medical history, social history, allergies, habits. MEDICATIONS: See the MAR. REVIEW OF SYSTEMS: No chest pain, shortness of breath or abdominal discomfort. She had some left large toe pain; an x-ray was checked, which was negative. Otherwise, see the full 14-point system review. PHYSICAL EXAMINATION: GENERAL: Examination is as noted. She was pleasant, alert. Given with the language barrier, she is able to understand some of the basics that I discussed with her. She is of small build. HEENT: Appeared to be benign. VITAL SIGNS: Temperature 36.6, pulse 73, respirations 18, blood pressure 121/73. CHEST: Clear to auscultation. CARDIOVASCULAR: Regular rate and rhythm. ABDOMEN: Bowel sounds positive, nontender. GENITOURINARY: Rectal examination deferred. EXTREMITIES: She has functional range of motion of both upper extremities without obvious focal weakness. DTRs are trace to 1. Lower extremities: She has the left knee immobilizer in place. No focal calf swelling. She can wiggle her toes, did not complain of significant pain today. No focal calf swelling. Functional range of motion of the right lower extremity. No obvious focal weakness in the right lower extremity. She is min assist coming to stand, min [facility] [address] [place] [address] HISTORY AND PHYSICAL Name: FLACO HARRISON Room #: 506-1 ADM IN ..#: [id number] Admission: 08/12/20 Attend Phys: Jfefrey Rashid MD Discharge: Date of : 45 Report #: [id number] assist to try to hop short distance with a front-wheeled walker. ASSESSMENT: 1. Fall with left displaced patellar fracture, status post open reduction and internal fixation on 08/08/2020, nonweightbearing left lower extremity. 2. Urinary tract infection. 3. Hypertension. 4. Trigeminal neuralgia with chronic pain. 5. Depression/posttraumatic stress disorder. 6. Language barrier. PLAN: The patient has been admitted for acute in-hospital inpatient rehabilitation. Note that her [place] was changed to scheduled dosing t.i.d. and we are continuing with the methadone home dosage. She had been on IV morphine before. She has had regular pain management outpatient involvement for her trigeminal neuralgia with Dr. Pierson. From a rehabilitation perspective, she will be involved in the interdisciplinary acute inpatient program to maximize her functional independence, so she can hopefully return back to the home setting. There may need to be some modifications for culture assessment regarding her home setting as discussed with the patient's friend yesterday. The patient meets diagnostic criteria for an acute in-hospital inpatient rehabilitation stay. She meets the medical necessity criteria. We will have the legal nurse consultant physicians involved. She does have the tolerance for therapies and has appropriate discharge goals back to the home setting. The overall plan of care is based on the pre-admit screen and information garnered from therapy assessments. She has also been working in occupational therapy and set up for upper body dressing and max assist for lower body dressing. 1. Estimated length of stay is around 10-14 days. 2. Medical prognosis is reasonably good. 3. Anticipated interventions includes the interdisciplinary acute inpatient rehabilitation program. 4. Anticipated functional outcomes would be for the patient to become modified independent with transfers, mobility and ADLs, so that she can return back to the home setting. 5. Discharge destination would be back to her home setting where she lives in a house alone. 6. Expected therapy by discipline includes PT and OT 1-1/2 hours per day each 5 days a week throughout the duration of the acute inpatient rehabilitation stay. The patient's prognosis for significant practical improvement within a reasonable period of time appears good. Given the patient's complex medical condition and risk of further medical complications, rehabilitation services [facility] [address] [place] [address] HISTORY AND PHYSICAL Name: FLACO HARRISON Room #: 506-1 ADM IN M.R.#: [id number] Admission: 08/12/20 Attend Phys: Jeffrey Rashid MD Discharge: Date of : 45 Report #: [id number] could not be safely provided at a lower level of care such as retirement facility. MD AMANUEL OrtizS/STEPHANIE/IQB <ELECTRONICALLY SIGNED> By: Jeffrey Rashid MD 08/19/20 1243 1440 1523 Jeffrey Rashid MD /nt
--- NOTE | 2020-08-19 16:26 | NUR ---
FAXED REFERRAL TO [facility]. WILL CONFIRM WITH [facility]ADMISSIONS THAT THEY RECEIVED AND BED AVAILABILITY. ANTICIPATED DISCHARGE SCHEDULED FOR 08/24/20. [facility] P [phone]; FAX [phone] [facility]ADMISSIONS M [phone]
[2020-08-19 19:52] VITALS: BP 132/72
--- NOTE | 2020-08-19 23:42 | NUR ---
PT ASSESSMENT COMPLETED AND VSS. MEDS GIVEN ORDERED AND WELL TOLERATED. FALL PRECAUTIONS IN PLACE. UP TO THE BATHROOM WITH ASST/GAIT/WALKER. STEADY. ENEMA GIVEN X 1 WITH RESULT OF ONE SMALL BM. PT REFUSED SECOND ENEMA AND MIRLAX. PT DID TAKE STOOL SOFTNER. PRN PAIN MEDICATION HELPFUL. SCHEDULED PAIN MEDICATION HELPFUL WELL. ASST WITH REPOSIION FOR COMFORT. ICE PACKS REFRESHED REGULARLY AND APPLIED TO LEFT KNEE AND R JAW TMJ. PT SLEEPING WELL AT THIS TIME. WILL CONTINUE TO MONITOR FREUQENTLY.
[2020-08-20 08:57] VITALS: BP 123/52
--- NOTE | 2020-08-20 11:35 | NUR ---
ASSUMED CARE AT 0700. SLEPT FAIR. WAS GIVEN A FLEET ENEMA LAST NIGHT WITH LITTLE RELIEF. ALERT AND ORIENTATED X 3. SPEAK LITTLE DANISH, ABLE TO MAKE NEEDS KNOWN. HAVING CHRONIC PAIN TO R FACE AND POST SURGERY PAIN IN L KNEE AND MEDICATED WITH HYDROCODONE, METHADONE AND ROBAXIN. STILL COMPLAINING FEELING CONSTIPATED AND WAS GIVEN MIRALAX AND COLACE. LLE DRESSING INTACT WITH BRACE ON. PEDAL PULSES PALPABLE, ABLE TO MOVE ALL TOES. PARTICIPATING WITH THERAPY AND PROGRESSING TOWARDS GOAL.
--- NOTE | 2020-08-20 14:37 | NUR ---
Nutrition followup: pt continues on rehab unit S/P ORIF for displaced transverse patella fx on 08/08. Variable intakes but averaging 65% of meals on regular diet. 08/19 BM, on bowel regimen. On folic acid and vitamin D supplement. Stable weights. Planned D/C on 08/24 to SNF. Low nutrition risk.
[2020-08-20 19:24] VITALS: BP 126/71
--- NOTE | 2020-08-21 02:56 | NUR ---
WANTING PAIN MED NOW AND ACCEPTS THAT NEXT TIME PRN HYDROCODONE CAN BE GIVEN IS 0330. ROUTINE ROBAXIN, TYLENOL, METHADONE ARE SCHEDULED. APPRECIATES FREQUENT REFILLING OF ICE BAGS. STATES NO BM IN A FEW DAYS AND APPRECIATES MIRALAX AND WOULD LIKE IT AGAIN, HAS ALSO HAD PRUNE JUICE, LIQUID SENNA, AND PRUNE JUICE AGAIN. DOES VERY WELL WITH [id number] RESTRICTION
[2020-08-21 08:28] VITALS: BP 118/61
--- NOTE | 2020-08-21 08:56 | NUR ---
ASSUMED CARE AT 0700. PATIENT IS ALERT AND ORIENTED X4. PATIENT REICH'S, HEARTH FEEDER ARE EQUAL. PATIENT HAS BRACE TO HIS LEFT LEG. ICE PACKS TO FACE AND LEFT KNEE. LUNGS ARE CLEAR. ABD IS SOFT WITH BSX4. C/O CONSTIPATION. LAXATIVES GIVEN. UP IN W/C AND OUT TO DINING ROOM. UP TO THE BATHROOM TO VOID DIANE COLORED URINE. FALL AND SAFETY PROTOCOLS IN PLACE. C/O LEFT LEG PAIN. MEDICATED WITH PRN PAIN MED. CONTINUES TO PROGRESS TOWARDS D/C GOALS. WILL CONTINUE TO MONITER.
--- NOTE | 2020-08-21 13:17 | NUR ---
Cm checked [facility] able to accept. Chandu spoke with wendie, notified her and she let judith llamas know they will take her to skilled rehab on 08/24. will cont following as needed for dc needs.
--- NOTE | 2020-08-21 16:16 | HC ---
[facility] [place] [address] CONSULTATION Name: FLACO HARRISON Room #: 506-1 ADM IN M.R.#: [id number] Admission: 08/12/20 Attend Phys: Jeffrey Rashid MD Discharge: Date of : 45 Report #: [id number] THIS REPORT FOR: cc: Ole Mallory MD, Christopher B. MD Deutch, Neal B. PhD ~ DOC #: [id number] Dain Ramey, PhD DATE OF SERVICE: 08/16/2020 NEUROBEHAVIORAL STATUS EXAM ATTENDING PHYSICIAN: Jeffrey Rashid M.D. SINTERING PRESS OPERATOR: Dain Ramey, PhD. CLINICAL PRESENTATION: The patient is a 74-year-old female initially admitted to the [facility] with an injury to her knee. She reported to have had a fall at her home and had a left displaced patellar fracture and is status post open reduction and internal fixation on 08/08/2020, and is nonweightbearing in the left lower extremity. Also, reported is left toe pain, UTI, hypertension, trigeminal neuralgia with chronic pain, depression with posttraumatic stress disorder and language barrier. The patient is originally from [place] and [place]ive[place] is her primary language; however, the patient has been in the [place] for over 30 years. The patient had been living with the assistance of her . He about 2-1/2 years ago. 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 A friend provided translation during my interview. She reported that the patient's social life is very limited. She has been isolated in her home and has had great difficulty in managing her affairs. Although, she was reported to have been independent with driving and managing her medication plus bill payment. She is a high school graduate. Her pain disorder is reportedly associated with of her only child at age of 9. TECHNIQUES UTILIZED: Clinical interview, review of medical records, staff consultation and behavioral observation, mini mental status exam 2 standard version, and clock drawing. An catering cook, (female peer) provided assistance during the assessment. Expressive speech was very limited. The patient is not reported to have been utilizing an antidepressant and there is no reported prior treatment for anxiety or depression. Her mood appears despondent. Symptoms are reported to include sleep disorder, decreased appetite, anxiety and depression. There is no reported issues with memory or word finding. [facility] [address] [place] [address] CONSULTATION Name: FLACO HARRISON Room #: 506-1 [facility] IN M.R.#: [id number] Admission: 08/12/20 Attend Phys: Jeffrey Rashid MD Discharge: Date of : 45 Report #: [id number] Her performance on the mini mental status exam to brief version was in the impaired range. The patient was 3/3 for initial registration, 4/5 for orientation to time, 5/[address]. She was 0/3 for immediate recall of 3 items after a brief time delay and distraction. Subtests of the MMSE 2 standard version were utilized. Naming was 2/2. The patient was able to copy a simple geometric design, draw a clock and set the hands at a designated time. Her mood appeared depressed as well as anxious during the assessment. DIAGNOSTIC IMPRESSION: Mild neurocognitive disorder, unspecified, without behavior disorder. Unspecified depressive disorder with anxiety. Somatic Symptom Disorder - chronic pain RECOMMENDATIONS: The patient will likely benefit from the use of an antidepressant medication. Consider psychiatric consultation to assist with the selection of medication. She is reported to have been on chronic narcotic use to manage pain which might be contributing to decline in cognitive functioning. The patient also will benefit from encouragement to maintain and improve social support and arrange a more supportive environment upon discharge as she appears quite isolated at this time. Thank you very much for allowing me to provide the consultation on this patient. Dain Ramey, PhD NEEL/ZOILA <ELECTRONICALLY SIGNED> By: Dain Ramey, PhD 08/21/20 1616 [id number] Dain Ramey, PhD /rola
[2020-08-21 20:32] VITALS: BP 141/83
--- NOTE | 2020-08-22 01:19 | NUR ---
SCHEDULED METHADONE AND ROBAXIN AT HS, PRN HYDROCODONE PER REQUEST. LIBERALLY USING ICE BAGS TO FACE AND KNEE. TRANSFERS TO THEN TO TOILET WITHOUT BEARING ANY WEIGHT WITH GAIT BELT AND ONE PERSON ASSIST. THRILLED THAT SHE HAD BM IN THE AFTERNOON, DECLINES LACTULOSE AND MIRALAX FOR NOW, ENCOURAGED TO TAKE MIRALAX REGULARLY.
--- NOTE | 2020-08-22 07:49 | NUR ---
ASSUMED CARE AT 0700. PATIENT IS ALERT AND ORIENTEDX4. PATIENT REICH'S, SERVICE PARTS DRIVER ARE EQUAL. PATIENT HAS BRACE ON LEFT LEG. PATIENT HAS GOOD CIRCULATION TO HER TOES ON THE LEFT. LUNGS ARE CLEAR. ABD IS SOFT WITH BSX4. PATIENT REFUSED DULCOLAX SUPP, AND MIRALAX THIS A.M. PATIENT HAD BM THIS A.M. UP TO THE BATHROOM TO VOID DIANE COLORED URINE. FALL AND SAFETY PROTOCOLS IN PLACE. C/O PAIN IN HER LEFT LEG AND HER FACE/TMJ. MEDICATED WITH PRN PAIN MEDS. CONTINUES TO PROGRESS TOWARDS D/C GOALS. WILL CONTINUE TO MONITER.
[2020-08-22 08:00] VITALS: BP 133/58
--- NOTE | 2020-08-22 12:40 | NUR ---
ASSUMED CARE OF PT AND PT LYING IN BED COMPLAINED OF PAIN TO LEFT KNEE OF 8 ON 1-10 SCALE. ADM HYDROCODONE 10MG PO FOR PAIN.
--- NOTE | 2020-08-22 13:25 | NUR ---
PT UP TO BATHROOM X1 ASSIST. PT DID VERY WELL WITH TRANSFER FROM W/C TO TOILET WITHOUT ANY TOUCH ASSIST. PT LIKES TO HAVE W/C HELP HOLD UP HER LEG WHEN SITTING ON TOILET.
--- NOTE | 2020-08-22 16:29 | NUR ---
ADM HYDROCODONE 10MG PO FOR PAIN TO LEFT KNEE OF 7 ON 1-10 SCALE. PT AWAKE AND WATCHING HER PHONE.
[2020-08-22 19:00] VITALS: BP 139/84
--- NOTE | 2020-08-22 23:48 | NUR ---
PT ALERT AND ORIENTED X 4. PT C/O PAIN IN RIGHT SIDE OF FACE. HYDROCODONE GIVEN ORDERED. PT REFUSED LACTULOSE AT HS. BED ALARM ON FOR SAFETY. PT CHECKED ON HOURLY ROUNDS.
[2020-08-23 07:15] VITALS: BP 134/71
--- NOTE | 2020-08-23 10:07 | NUR ---
ASSUMED CARE AT 0700. PATIENT IS ALERT AND ORIENTED X4. PATIENT REICH'S, COMMISSIONED SALES ASSOCIATE ARE EQUAL LUNGS ARE CLEAR. ABD IS SOFT WITH BSX4. REFUSED SUPP. PATIENT HAS LEFT LEG BRACE ON. SELVIN WRAP IS DRY AND INTACT. UP TO THE W/C FOR MEALS. UP TO THE BR TO VOID DIANE COLORED URINE. PATIENT HAS GOOD CAP REFILL TO HER TOES ON THE LEFT, SLIGHT EDEMA IN HER TOES. FALL AND SAFETY PROTOCOLS IN PLACE. C/O FACIAL PAIN AND LEFT LEG PAIN. MEDICATED WITH PRN PAIN MED. CONTINUES TO PROGRESS SLOWLY TOWARDS D/C GOALS. WILL CONTINUE TO MONITER.
[2020-08-23 19:39] VITALS: BP 126/67
--- NOTE | 2020-08-24 02:31 | NUR ---
PATIENT CAREFULLY AVOIDING LEFT LEG WEIGHT BEARING. ROUTINELY TAKES HYDROCODONE AND USES ICE TO LEFT KNEE AND RIGHT CHEEK TO SUPPLEMENT SCHEDULED METHADONE AND ROBAXIN. TAKING SCHEDULED MIRALAX AND LACTULOSE TO AVOID ANOTHER BOUT OF CONSTIPATION. LOOKING FORWARD TO NEXT STEP CLOSER TO HOME AT [facility].
[2020-08-24 08:18] VITALS: BP 144/66
--- NOTE | 2020-08-24 09:17 | NUR ---
Chart copy requested, 4w us is assist with chart copy for pt. to dc to [facility] rehab today at [facility].
[2020-08-24] MEDS ORDERED: MIRALAX17 GM PO (09:25)
[2020-08-24] MEDS ORDERED: METHOCARBAMOL750 MG PO (09:25)
[2020-08-24] MEDS ORDERED: VITAMIN D325 MC1 PO (09:25)
[2020-08-24] MEDS ORDERED: CYMBALTA20 MG PO (09:25)
[2020-08-24] MEDS ORDERED: TYLENOL EXTRA500 MG PO (09:25)
[2020-08-24] MEDS ORDERED: FOLIC ACID1 MG PO (09:25)
[2020-08-24] MEDS ORDERED: OXYBUTYNIN 5 MG5 M1 PO (09:25)
[2020-08-24] MEDS ORDERED: LACTULOSE20 GM/30 M PO (09:25)
[2020-08-24] MEDS ORDERED: ASPIRIN325 PO (09:25)
--- NOTE | 2020-08-24 09:50 | NUR ---
ASSUMED CARE AT 0700. ALERT AND ORIENTATED X 4. REPORTED CHRONIC PAIN IN R FACE AND L KNEE PAIN.TREATED WITH PRN HYDROCODONE WITH LITTLE RELIEF. BRACE TO LLE WITH PEDAL PULSES PALPABLE AND ABLE TO MOVE ALL TOES. STOOL REGIMEN GIVEN. APPETITE GOOD, LAST BM 08/22, REFUSED DULCOLAX SUPP TODAY. PLAN FOR DC TO [facility] TODAY AT 1300.
== END 2020-08-24 13:20 | DRG 563 ==
PROVIDERS: Nurse Practitioner; Nurse Practitioner Family; ADMIT Physical Medicine & Rehabilitation; ATTEND Physical Medicine & Rehabilitation
DX: S82.002A Unspecified fracture of left patella, initial encounter for closed fracture (principal); N39.0 Urinary tract infection, site not specified; I10 Essential (primary) hypertension; G50.0 Trigeminal neuralgia; F43.10 Post-traumatic stress disorder, unspecified; F31.9 Bipolar disorder, unspecified; F41.8 Other specified anxiety disorders; K59.00 Constipation, unspecified; W18.39XA Other fall on same level, initial encounter; G31.84 Mild cognitive impairment of uncertain or unknown etiology; Z79.891 Long term (current) use of opiate analgesic; Y93.89 Activity, other specified; Y92.89 Other specified places as the place of occurrence of the external cause; Y99.8 Other external cause status
CPT/HCPCS: 10112

== ENCOUNTER 2020-10-15 17:52 | Emergency (ER) | payer OTHER ==
[~2020-10-15] VITALS: Ht 152.4 cm; Wt 68.0 kg
--- NOTE | ~2020-10-15 | EMS ---
[address] [address] EMS Patient Care Report Name: FLACO HARRISON Room #: REG ALONZO Perry#: [id number] Admission: 10/15/20 Attend Phys: Discharge: Date of : 45 Report #: [id number] THIS REPORT FOR: //name// Report Transmitted: 10/15/2020 17:44 EMS Care Summary [facility] MED-ACT Incident [id number] @ 10/15/2020 17:01 Incident Location [address] [place] [id number] Patient FLACO HARRISON Female, 75 Years 1945 Patient Address [address] [place] [address] Patient History Hypertension (HTN),Knee Replacement, Patient Allergies Dye allergy,Adhesive Tape, Patient Medications Folic acid, Hydrochlorothiazide (Hctz), Lisinopril, Duloxetine, ASA, Vitamin D, Methocarbamol, Hydrocodone, Methadone, Chief Complaint chest pain Disposition Transported No Lights/[place] Dispatch Reason Chest Pain (Non-Traumatic) Transported To [facility] Narrative Arrived to find pt supine in bed, awake and in NAD, in the presence of OP[facility]#[id number] personnel. [address] [address] EMS Patient Care Report Name: FLACO HARRISON Room #: REG ALONZO Perry#: [id number] Admission: 10/15/20 Attend Phys: Discharge: Date of : 45 Report #: [id number] OPFD#47 report staff advised that pt has been experiencing evening time chest pain over the last 3 days. Pts pain has been relieved with nitroglycerin pill. Staff report this has been a recurring issue so physician requested that pt be transported for evaluation. Pt states the headache started after she was given her NTG pill tonight. Pt is English speaking and is difficulty to get some history from her but she does speak a little bit of French. Pt is recovering from knee surgery and has not had any complications with that. Pt was able to transfer from the bed to the cot without incident. Pt secured with cot straps and taken to MICU for non-emergent transport to [facility] as pt requested. Pt rested on the cot without any changes in condition. Pt was moved via sheet from cot to hospital bed without incident. Pt report and transfer of care given to APPLICATION OPERATIONS ENGINEER room #11. Initial Vitals @PTAP: 78,SpO2: 95, @17:39P: 75,WA Suspected: false @PTAP: 93,R: 18,BP: 182/92,Pain: 10/10,SpO2: 99, @PTAP: 92,R: 16,BP: 182/92,GCS: 15,SpO2: 97,Revised Trauma: 12, @17:40P: 73,R: 16,BP: 167/76,Pain: 8/10,GCS: 15,SpO2: 95,Revised Trauma: 12, @17:28P: 77,R: 16,BP: 152/83,Pain: 8/10,GCS: 15,Temp: 97.4F,SpO2: 96,Revised Trauma: 12, Impression Chest Pain / Discomfort Procedures @PTASurgical Mask on PatientResponse: Unchanged@[id number] ECGResponse: UnchangedSucceeded@17:40Aspirin - 324 Milligrams (mg) - OralResponse: Unchanged@17:25 cc () Timeline CHASSIS INSPECTOR,Surgical Mask on Patient,Response: Unchanged CHASSIS INSPECTOR,12-Lead ECG,Response: UnchangedSucceeded, CHASSIS INSPECTOR,BP: / M,PULSE: 78,RR: R,SPO2: 95 Ox,ETCO2: ,BG: ,PAIN: ,GCS: , CHASSIS INSPECTOR,BP: 182/92 M,PULSE: 93,RR: 18 R,SPO2: 99 Ox,ETCO2: ,BG: ,PAIN: 10,GCS: , CHASSIS INSPECTOR,BP: 182/92 M,PULSE: 92,RR: 16 R,SPO2: 97 Ox,ETCO2: ,BG: ,PAIN: ,GCS: 15, 17:00,Call Received 17:00,Psap Call 17:01,Dispatched [address] [address] EMS Patient Care Report Name: FLACO HARRISON Room #: REG ALONZO MHomaR.#: [id number] Admission: 10/15/20 Attend Phys: Discharge: Date of : 45 Report #: [id number] 17:02,En Route 17:16,On Scene 17:19,At Patient 17:25, cc Site: , 17:28,BP: 152/83 M,PULSE: 77,RR: 16 R,SPO2: 96 Ox,ETCO2: ,BG: ,PAIN: 8,GCS: 15, 17:33,Depart Scene 17:39,BP: / M,PULSE: 75,RR: R,SPO2: Ox,ETCO2: ,BG: ,PAIN: ,GCS: , 17:40,Aspirin - 324 Milligrams (mg) - Oral,Response: Unchanged 17:40,BP: 167/76 M,PULSE: 73,RR: 16 R,SPO2: 95 Ox,ETCO2: ,BG: ,PAIN: 8,GCS: 15, 17:44,At Destination 18:02,Call Closed Disclaimer v1.1 Copyright 2020 [employer] This EMS Care Summary contains data elements from the applicable legal record (which may be displayed differently). It is designed to provide pertinent information for the following purposes: continuity of care, clinical quality, and state data reporting. The complete legal record is available to ED staff and administrators of the receiving hospital in [employer]s Patient Tracker. All data is provided "as is."
[~2020-10-15 17:52] MED LIST changes: +ASPIRIN325 PO; +CEFUROXIME250 MG PO; +CYMBALTA20 MG PO; +FOLIC ACID1 MG PO; +LACTULOSE20 GM/30 M PO; +METHOCARBAMOL750 MG PO; +OXYBUTYNIN 5 MG5 M1 PO; +TYLENOL EXTRA500 MG PO; +VITAMIN D325 MC1 PO
[2020-10-15 18:53] LABS: ABSOLUTE NEUTROPHILS 5.5 thou/uL (1.4-8.2); BASOPHILS 0.3 % (0.0-2.0); EOSINOPHILS 0.9 % (0.0-3.0); HEMOGLOBIN 13.3 gm/dL (12.0-15.0); LYMPHOCYTES 23.4 % (24.0-44.0); MCHC 34.1 g/dL (28.0-37.0); MCV 93.9 fL (80.0-100.0); MONOCYTES 6.9 % (1.0-8.0); PLATELET COUNT 270 thou/uL (150-400); POLYS 68.5 % (36.0-66.0); RBC 4.15 mil/uL (4.20-5.00); RDW 13.2 % (10.5-14.5)
[2020-10-15 18:55] LABS: ANION GAP 8 mmol/L (7-16); BUN 13 mg/dL (7-18); CALCIUM 9.6 mg/dL (8.5-10.1); CHLORIDE 105 mmol/L (98-107); CO2 27 mmol/L (21-32); GLUCOSE 104 mg/dL (74-106); POTASSIUM 3.4 mmol/L (3.5-5.1); SODIUM 140 mmol/L (136-145)
[2020-10-15 19:05] LABS: ALBUMIN 4.1 g/dL (3.4-5.0); SGOT 27 U/L (15-37); SGPT 26 U/L (14-59); TOTAL BILIRUBIN 0.5 mg/dL (0.2-1.0); TOTAL PROTEIN 8.1 g/dL (6.4-8.2); TROPONIN-I <0.06 ng/mL (<0.06)
[2020-10-15] MEDS ORDERED: ATIVAN0.5 M1 PO (22:39)
[2020-10-15 23:00] VITALS: BP 165/97
--- NOTE | 2020-10-16 14:01 | EKG ---
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
== END 2020-10-15 23:05 | disposition still patient (30) ==
LOC: ER 17:52
PROVIDERS: Emergency Medicine
DX: R07.89 Other chest pain (principal); Z79.899 Other long term (current) drug therapy; Z91.09 Other allergy status, other than to drugs and biological substances

== ENCOUNTER → 2020-11-19 | Outpatient (CLI) | payer OTHER ==
[~2020-11-19] VITALS: Ht 152.4 cm; Wt 65.3 kg
[~2020-11-19] MED LIST changes: +ATIVAN0.5 M1 PO; +ENULOSE10 GM/15 M PO
[2020-11-19 10:06] VITALS: BP 147/83
--- NOTE | 2020-11-19 10:21 | NUR ---
Pain Clinic Assessment: 1. History of Osteoarthritis: UPPER EXTREMITIES History of Rheumatoid Arthritis: NO 2. Height: 5 ft. 0 in. 152.4 cm. Weight: 144.0 lb. oz. 65.318 kg. Patient's BMI: 28.1 3. Vital Signs: BP: 147/83 Pulse: 78 Resp: 18 Temp: 02 Sat: 97 ECG Mon: 4. Pain Intensity: FACE PAIN 8 KNEEPAIN 6 5. Fall Risk: Dizziness: N Needs help standing or walking: N Fallen in the last 3 months: Y Fall risk comments: 6. Patient on Blood Thinner: None 7. History of Hypertension: Y 8. Opioid Therapy greater than 6 weeks: Y Opiate Contract Signed: 04/07/16 9. Risk Assessment Tool Provided: LOW RISK 0 10. Functional Assessment Tool: 11. Recreational Drug Use: Never Drug Type: Tobacco Use: Never Smoker Tobacco Type: Amount or Packs/day: How Many Years: Alcohol Use: No Frequency: Quant:
== END ==
LOC: PAIN 07:05
PROVIDERS: ATTEND Clinical Nurse Specialist Adult Health
DX: G50.0 Trigeminal neuralgia (principal); F32.9 Major depressive disorder, single episode, unspecified; Z79.891 Long term (current) use of opiate analgesic; Z79.899 Other long term (current) drug therapy

== ENCOUNTER → 2020-11-24 | Outpatient (CLI) | payer OTHER | LOC: CAT 11:02 | PROVIDERS: ATTEND Internal Medicine Pulmonary Disease | DX: R91.8 Other nonspecific abnormal finding of lung field (principal); K76.89 Other specified diseases of liver ==

== ENCOUNTER → 2021-01-18 | Outpatient (CLI) | payer OTHER ==
[~2021-01-18] VITALS: Ht 152.4 cm; Wt 66.4 kg
[2021-01-18 09:22] VITALS: BP 153/92
--- NOTE | 2021-01-18 09:43 | NUR ---
Pain Clinic Assessment: 1. History of Osteoarthritis: UPPER EXTREMITIES History of Rheumatoid Arthritis: NO 2. Height: 5 ft. 0 in. 152.4 cm. Weight: 146.4 lb. oz. 66.407 kg. Patient's BMI: 28.6 3. Vital Signs: BP: 153/92 Pulse: 67 Resp: 14 Temp: 02 Sat: 97 ECG Mon: 4. Pain Intensity: 8 5. Fall Risk: Dizziness: N Needs help standing or walking: N Fallen in the last 3 months: N Fall risk comments: 6. Patient on Blood Thinner: None 7. History of Hypertension: Y 8. Opioid Therapy greater than 6 weeks: Y Opiate Contract Signed: 04/07/16 9. Risk Assessment Tool Provided: LOW RISK 0 10. Functional Assessment Tool: 11. Recreational Drug Use: Never Drug Type: Tobacco Use: Never Smoker Tobacco Type: Amount or Packs/day: How Many Years: Alcohol Use: No Frequency: Quant:
== END ==
LOC: PAIN 09:04
PROVIDERS: ATTEND Clinical Nurse Specialist Adult Health
DX: G50.0 Trigeminal neuralgia (principal); M25.562 Pain in left knee; F41.8 Other specified anxiety disorders; Z88.8 Allergy status to other drugs, medicaments and biological substances; Z79.899 Other long term (current) drug therapy

== ENCOUNTER → 2021-03-18 | Outpatient (CLI) | payer OTHER ==
[~2021-03-18] VITALS: Ht 152.4 cm; Wt 66.6 kg
[2021-03-18 09:30] VITALS: BP 142/84
--- NOTE | 2021-03-18 09:51 | NUR ---
Pain Clinic Assessment: 1. History of Osteoarthritis: UPPER EXTREMITIES History of Rheumatoid Arthritis: NO 2. Height: 5 ft. 0 in. 152.4 cm. Weight: 146.8 lb. oz. 66.588 kg. Patient's BMI: 28.7 3. Vital Signs: BP: 142/84 Pulse: 76 Resp: 14 Temp: 02 Sat: 98 ECG Mon: 4. Pain Intensity: 9 5. Fall Risk: Dizziness: N Needs help standing or walking: N Fallen in the last 3 months: N Fall risk comments: 6. Patient on Blood Thinner: None 7. History of Hypertension: Y 8. Opioid Therapy greater than 6 weeks: Y Opiate Contract Signed: 04/07/16 9. Risk Assessment Tool Provided: LOW RISK 0 10. Functional Assessment Tool: 11. Recreational Drug Use: Never Drug Type: Tobacco Use: Never Smoker Tobacco Type: Amount or Packs/day: How Many Years: Alcohol Use: No Frequency: Quant:
== END ==
LOC: PAIN 03-15 13:26
PROVIDERS: ATTEND Clinical Nurse Specialist Adult Health
DX: G50.0 Trigeminal neuralgia (principal); F34.9 Persistent mood [affective] disorder, unspecified; F41.9 Anxiety disorder, unspecified; Z88.8 Allergy status to other drugs, medicaments and biological substances; Z79.899 Other long term (current) drug therapy

== ENCOUNTER → 2021-04-16 | Day surgery (SDC) | payer OTHER ==
[~2021-04-16] VITALS: Ht 152.4 cm; Wt 66.7 kg
--- NOTE | ~2021-04-16 | O ---
[facility] [place] [address] OPERATIVE REPORT Name: FLACO HARRISON Room #: REG [facility] M.R.#: [id number] Admission: 04/16/21 Attend Phys: David Esquivel Discharge: Date of : 45 Report #: [id number] THIS REPORT FOR: cc: Ole Mallory MD, Christopher B. MD VanDenBerghe,David Grimaldo MD ~ DATE OF SERVICE: 04/16/2021 PREOPERATIVE DIAGNOSES: Left anterior knee pain, status post open reduction internal fixation of patellar fracture with painful hardware. POSTOPERATIVE DIAGNOSES: Left knee, painful hardware, medial meniscus tear, lateral meniscus tear, tricompartmental chondromalacia. PROCEDURES PERFORMED: Left knee arthroscopy, partial medial meniscectomy, partial lateral meniscectomy, tricompartmental chondroplasty, lysis of adhesions, open removal of patellar hardware. SURGEON: David Nelson MD CHANGE MANAGEMENT LEAD: Sravani Mcmahon PA-C. ANESTHESIA: General. FLUIDS: 400 mL crystalloid. TOURNIQUET TIME: Approximately 45 minutes. ESTIMATED BLOOD LOSS: Less than 5 mL. DESCRIPTION OF PROCEDURE: After proper identification of the patient and the operative site in preoperative holding area, the operative site was signed by myself. Prophylactic antibiotics given. The patient elected to receive a general anesthetic. She was brought back to the operative suite after induction of satisfactory general anesthesia per LMA. The left knee was examined. It was ligamentously stable. Her motion was from 0-95 degrees. With gentle manipulation, I was able to be increased to 110-115 degrees. Her knee remains ligamentously stable. A tourniquet was applied to the upper thigh. The limb was sterilely prepped and draped in the usual manner, elevated, and exsanguinated with an Esmarch and tourniquet was inflated to 300 mmHg. A superomedial portal was created for inflow purposes. The joint was inflated by gravity inflow with normal saline. Next, an anterolateral followed by an anteromedial portal were created using a spinal needle for localization. Examination of the knee medial compartment revealed some diffuse chondromalacia of the medial femoral condyle, grade 3 in nature due to the size and extent. Fibrillated tissue and any loose chondral flaps were carefully debrided. There [address] [address] OPERATIVE REPORT Name: FLACO HARRISON Room #: REG [facility] M.R.#: [id number] Admission: 04/16/21 Attend Phys: David Esquivel Discharge: Date of : 45 Report #: [id number] was a complex tear of the posterior horn of the medial meniscus that was debrided with combination of hand and motorized instrumentation back to a stable peripheral rim. Chondral surface of the plateau demonstrated some very mild fibrillation. Anterior and posterior cruciate ligaments were intact and stable to probing. Some fat pad adhesions to this area were noted and were carefully debrided. Lateral compartment knee revealed a discoid lateral meniscus with a complex tear pattern and this was debrided with combination of hand and motorized instrumentation back to a stable peripheral rim, which matched more of a sokaogon lateral meniscus with the more central part being excised. Some fibrillation and loose chondral flaps noted on the lateral tibial plateau. This was not as involved and was extensive on the medial side, more grade 2 in nature and mild fibrillation of the more medial aspect of the lateral tibial plateau was also appreciated. The patella when examined, some suprapatellar recess was freed and cleared of any thickened tissue, some diffuse grade 3 chondromalacia and wear was noted on the patella. No fracture site was apparent. This appeared to be well healed. No significant articular step-off was appreciated or loose fragments, requiring debridement from the articular side. It appeared that it had healed in continuity and mild fibrillation and degenerative changes appreciated on the trochlea. No exposed bone was noted and this area was carefully debrided. With the intra-articular aspect and the knee thoroughly debrided, the arthroscopy portals were closed with simple nylon stitches. Next, her anterior midline incision was then opened and the K-wires and stainless steel tension band wires were then removed in entirety. Several small longitudinal type incisions and the quad tendon overlying the K-wires were created. These were approximately 7 mm in length and were closed with 0 Vicryl following the hardware removal. Intraoperative C-arm verified position of the hardware as well as that it was removed in its entirety. The patella moved in one unit and there appeared to be no disruption of the extensor mechanism as patellar tendon, quad tendon, and the remainder of the patella appeared intact. At this point, the subcutaneous tissues were closed with 2-0 Vicryl followed by running Monocryl subcuticular stitch, sealed with Dermabond. Sterile compressive dressing was applied. The patient may be weightbearing as tolerated postoperatively and a qualified first aid trainer utilized throughout the entire procedure to aid in patient limb positioning, visualization with the arthroscope, instrument passage as well as the open portion of the procedure. By: [id number] [id number] David Nelson MD /nt
[2021-04-16 11:56] VITALS: BP 154/74
[2021-04-16 14:36] VITALS: BP 154/74
--- NOTE | 2021-04-16 15:34 | EKG ---
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1945 Requested By: David Nelson Order Number: [id number] MD: Ok Georges Measurements Intervals [place] Rate: 69 P: 48 MA: 160 QRS: -12 QRSD: 94 T: 7 QT: 479 QTc: 514 Interpretive Statements Sinus rhythm Probable left atrial enlargement Probable left ventricular hypertrophy Inferior infarct, old Compared to ECG 10/15/2020 17:55:20 Myocardial infarct finding still present Electronically Signed On 04-16-2021 15:34:14 ONCOLOGY SPECIALIST by Ok Georges [email or web address] <ELECTRONICALLY SIGNED> By: Ok Georges MD, [facility] 04/16/21 1534 1148 Ok Georges MD, FACC /EPI
== END | disposition home or self-care (01) ==
LOC: OR 08:42
PROVIDERS: ATTEND Orthopaedic Surgery Sports Medicine
DX: M25.562 Pain in left knee (principal); S83.272A Complex tear of lateral meniscus, current injury, left knee, initial encounter; S83.232A Complex tear of medial meniscus, current injury, left knee, initial encounter; T84.84XA Pain due to internal orthopedic prosthetic devices, implants and grafts, initial encounter; M94.262 Chondromalacia, left knee; I10 Essential (primary) hypertension; Z98.890 Other specified postprocedural states; Z79.899 Other long term (current) drug therapy; Z20.822 Contact with and (suspected) exposure to COVID-19; Z90.710 Acquired absence of both cervix and uterus; Z91.040 Latex allergy status; Z98.41 Cataract extraction status, right eye; Z98.42 Cataract extraction status, left eye; X58.XXXA Exposure to other specified factors, initial encounter; Y93.89 Activity, other specified; Y92.89 Other specified places as the place of occurrence of the external cause; Y99.8 Other external cause status; Y83.8 Other surgical procedures as the cause of abnormal reaction of the patient, or of later complication, without mention of misadventure at the time of the procedure
CPT/HCPCS: 50010; 50101; 50386; 50405; 54118; 56524; 56527; 57103; 57179; 58577; 58589; 62110; 62900; 70005